=== PATIENT | male | born 1990 | race American Indian/Alaskan Native ===

== ENCOUNTER 2021-09-30 12:00 | Outpatient (REF) | payer OTHER, SELFPAY ==
[2021-09-30 14:06] LABS: Estimated Average Glucose 91 mg/dL; Hemoglobin A1c % 4.8 %
[2021-09-30 14:16] LABS: Alanine Aminotransferase 48 U/L (0-40); Albumin Level 4.7 g/dL (3.5-5.0); Alkaline Phosphatase 66 U/L (39-117); Anion Gap 12 (12-20); Aspartate Amino Transferase 26 U/L (5-37); Bilirubin Total 0.6 mg/dL (0.0-1.0); Blood Urea Nitrogen 12 mg/dL (9-16); Calcium 9.8 mg/dL (8.4-10.2); Carbon Dioxide 27 mmol/L (22-29); Chloride 107 mmol/L (96-108); Cholesterol 205 mg/dL; Estimated Glomerular Filt Rate > 60; Glucose Fasting 93 mg/dL (60-99); HDL Cholesterol 38 mg/dL; LDL Cholesterol Calculated 125 mg/dl; Potassium 3.7 mmol/L (3.3-5.1); Sodium 142 mmol/L (135-145); Total Protein 7.3 g/dL (6.5-8.0); Triglycerides 214 mg/dL
[2021-09-30 14:38] LABS: TSH reflex Free T4 1.45 uIU/mL (0.32-4.0)
== END 2021-09-30 12:01 | disposition home or self-care (01) ==
LOC: HO.10HDL 12:00
PROVIDERS: Visit Provider Physician Assistant
DX: Z13.29 Encounter for screening for other suspected endocrine disorder (principal); Z13.220 Encounter for screening for lipoid disorders
CPT/HCPCS: 36415; 80053; 80061; 83036; 84443

== ENCOUNTER 2022-04-04 10:08 | Outpatient (REF) | payer OTHER, SELFPAY ==
[2022-04-04 14:03] LABS: Hematocrit 44.5 % (42.0-52.0); Hemoglobin 14.8 g/dl (14.0-18.0); Mean Corpuscular HGB Conc 33.3 g/dl (31.0-36.0); Mean Corpuscular Hemoglobin 27.1 pg (27.0-33.0); Mean Corpuscular Volume 81.5 fL (80.0-98.0); Mean Platelet Volume 10.3 fL (9.4-12.4); Platelet Count 266 X10*3/uL (160-400); Red Blood Count 5.46 X10*6/uL (4.60-5.80); Red Cell Distribution Width 14.3 % (11.0-16.0); White Blood Count 8.9 X10*3/uL (4.8-10.8)
[2022-04-04 14:21] LABS: Alanine Aminotransferase 60 U/L (0-40); Albumin Level 4.6 g/dL (3.5-5.0); Alkaline Phosphatase 66 U/L (39-117); Anion Gap 14 (12-20); Aspartate Amino Transferase 28 U/L (5-37); Bilirubin Total 0.5 mg/dL (0.0-1.0); Blood Urea Nitrogen 10 mg/dL (9-16); Calcium 9.3 mg/dL (8.4-10.2); Carbon Dioxide 24 mmol/L (22-29); Chloride 108 mmol/L (96-108); Cholesterol 208 mg/dL; Estimated Glomerular Filt Rate > 60; Glucose Fasting 88 mg/dL (60-99); HDL Cholesterol 39 mg/dL; LDL Cholesterol Calculated 138 mg/dl; Potassium 3.8 mmol/L (3.3-5.1); Sodium 142 mmol/L (135-145); Total Protein 7.3 g/dL (6.5-8.0); Triglycerides 155 mg/dL
[2022-04-04 14:33] LABS: TSH reflex Free T4 1.12 uIU/mL (0.32-4.0)
== END 2022-04-04 10:09 | disposition home or self-care (01) ==
LOC: HO.10HDL 10:08
PROVIDERS: Visit Provider Physician Assistant
DX: I10 Essential (primary) hypertension (principal)
CPT/HCPCS: 36415; 80053; 80061; 84443; 85027

== ENCOUNTER 2023-07-04 11:09 | Outpatient (AMB) | payer OTHER, SELFPAY ==
--- NOTE | 2023-07-04 11:11 | A.OFFPC_ITS ---
Vital Signs 07/04/23 11:17 Height 5 ft 7 in Weight 237 lb BMI 37.1 BP 150/90 H Blood Pressure Location Lt brachial Position Sitting Respiration 17 Pulse 58 Pulse Source Pulse Oximeter Pulse Oximetry (%) 98 Oxygen Delivery Method Room Air Intake Visit Reasons: Follow up hypertension Intake Note: Patient is here to follow up on HTN and not one medications. Wiper Blender Required: No Accompanied by: Self / Same As Patient Allergies No Known Allergies [No Known Allergies*] Allergy (Verified 07/04/23 11:23) Medication List - Last Reconciled 07/04/23 by Willard Lester PA-C blood pressure test kit-large To take blood pressure once a day Tobacco use date assessed: 07/04/23 Dental Screening Dental Screen Date: 07/04/23 Did you have a dental visit in the last 12 months?: No Did you have a dental problem in the last 6 months where you did not have access to dental care?: No Was dental information given to patient?: Patient declined HPI Follow up hypertension HPI Details Patient is a 32 year male here today for a follow-up visit. ? Patient has past medical history significant obesity, elevated blood pressure readings, nonalcoholic fatty liver disease. HTN: Noted elevated blood pressure today in office.? He was to start hydrochlorothiazide at last visit though reports it was too expensive for him at his pharmacy. He will I to switch pharmacy for better cost on his blood pressure medication. He has not been monitoring his blood pressure at home.? He otherwise denies any chest discomfort, headaches, vision issues or palpitations. .. Obesity:. Will understands his BMI is over 30 will work on being more physically active and adapting to better eating habits to reduce his weight. .. Borderline high cholesterol: Most recent labs showing borderline high total cholesterol. He has been working on lifestyle modifications on reducing high cholesterol foods in his diet. [facility] Medical History Fatty liver disease, nonalcoholic Surgical History No pertinent past surgical history Family History Father Diabetes Mother No problems noted. Social History Housing: Apartment Housing Other:: living with parents Alcohol intake: former Patient Tobacco Use Status: Never used Tobacco e-Cigarette/Vaping Use: Never Used service: No Current occupational status: disabled Cognitive needs: No Hearing needs: No Vision needs: Yes Questionnaire PHQ-9 Over the last 2 weeks, how often have you been bothered by any of the following problems? 1. Little interest or pleasure in doing things: not at all 2. Feeling down, depressed, or hopeless: not at all 3. Trouble falling or staying asleep, or sleeping too much: not at all 4. Feeling tired or having little energy: not at all 5. Poor appetite or overeating: not at all 6. Feeling bad about yourself - or that you are a failure or have let yourself or your family down: not at all 7. Trouble concentrating on things, such as reading the newspaper or watching television: not at all 8. Moving or speaking so slowly that other people could have noticed. Or the opposite - being so fidgety or restless that you have been moving around a lot more than usual: not at all 9. Thoughts that you would be better off or of hurting yourself in some way: not at all Total score: 0 Depression Screening Interpretation: Negative 70823 - PHQ-9 Billing: Yes Source: Developed by Drs. Remy Headley, Livier Medina, Vance Garcia and colleagues, with an educational pedro pablo from [employer]. Thrive Questionnaire Date Thrive assessed: 07/04/23 I am a: Patient What is your living situation today?: I have a steady place to live (Pt live with parents) Within the past 12 months, did the food you bought not last and you didn't have the money to get more?: Never true Within the past 12 months, did you worry whether your food would run out before you got money to buy more?: Never true Do you have trouble paying for medicines?: Yes Do you have trouble getting transportation to medical appointments?: No Do you have trouble paying your heating and electricity bill?: No Do you have trouble taking care of your child, family member or friend?: No Do you have trouble with day-to-day activities such as bathing, preparing meals, shopping, managing finances, etc.?: No Are you currently unemployed and looking for a job?: No Are you interested in more education?: No Please select the resources that you would like help with: None Currently or been in a relationship where the following occur: no concerns reported AUDIT C Alcohol Use Questionnaire (AUDIT-C) 1. How often do you have a drink containing alcohol?: Never 3. How often do you have six or more drinks on one occasion?: Never Total Score: 0 GINI-7 AMB Questionnaire GINI-7 Date GINI - 7 assessed: 07/04/23 Feeling nervous, anxious, or on edge: 0 = Not at all Not being able to stop or control worryin = Not at all Worrying too much about different things: 0 = Not at all Trouble relaxin = Not at all Being so restless that it is hard to sit still: 0 = Not at all Becoming easily annoyed or irritable: 0 = Not at all Feeling afraid as if something awful might happen: 0 = Not at all Total GINI-7 score (0-4 normal; 5-9 mild; 10-14 moderate; 15-21 severe): 0 Source: Developed by Drs. Remy Headley, Livier Medina, Vance Garcia and colleagues, with an educational pedro pablo from [employer]. GINI-7 Assessment Billing GINI-7 Assessment Tool: GINI-7 Assessment 33206 Review of Systems Const Denies headache(s) Eyes Denies loss of vision ENT Denies vertigo, Denies dizziness, Denies headache(s) and Denies sore throat Card Denies chest pain, Denies leg edema and Denies lightheadedness Resp Denies cough, Denies hemoptysis and Denies wheezing GI Denies abdominal pain, Denies melena, Denies constipation, Denies diarrhea and Denies vomiting Denies dysuria, Denies urinary frequency and Denies urinary urgency Musc Denies arthralgias, Denies joint swelling, Denies numbness and Denies tingling Neuro Denies Abnormal speech present, Denies behavioral changes, Denies vertigo, Denies dizziness, Denies headache(s), Denies loss of vision, Denies memory loss, Denies numbness and Denies tingling Psych Denies anxiety, Denies behavioral changes, Denies depression, Denies memory loss and Denies panic attacks Glen/Lymph Denies easy bleeding and Denies easy bruising Aller/Immun Denies wheezing Physical exam (Primary Care) Vital Signs: Last Vital Signs Pulse 58 07/04/23 11:17 Resp 17 07/04/23 11:17 BP 150/90 H 07/04/23 11:17 Pulse Ox 98 07/04/23 11:17 Oxygen Delivery Method Room Air 07/04/23 11:17 BMI result Body Mass Index 37.1 BMI Assessment/Plan discussion: High Tobacco/Smoking Status: Tobacco use Status Tobacco use date assessed 07/04/23 07/04/23 11:19 Patient Tobacco Use Status Never used Tobacco 07/04/23 11:13 e-Cigarette/Vaping Use Never Used 07/04/23 11:19 PHQ-9: PHQ-9 Score PHQ-9: Total score 0 07/04/23 11:22 Depression Screening Interpretation: Negative Thrive Assessment: Date of Thrive Assessment Date Thrive assessed 07/04/23 07/04/23 11:21 Currently or been in a relationship where the following occur: no concerns reported Const Other: OBESE General: healthy appearing, no acute distress, alert and awake Nutritional Appearance: well nourished Orientation/consciousness: oriented to person, oriented to place and oriented to time HENMT Ears: TM's normal bilaterally General nose exam: Normal nasal mucous membranes and turbinates present Eyes Conjunctivae: conjunctivae normal Sclerae: sclerae normal Pupils: Equal, round and reactive pupils present Neck Neck: Yes no lymphadenopathy and Yes no JVD Thyroid: Thyroid normal Carotids: no bruits Resp Effort & Inspection: normal respiratory effort and not tachypneic Auscultation: no crackles, no rales, no rhonchi and no wheezes Cardio Rate: regular rate Rhythm: regular rhythm Heart sounds: no murmurs and normal S1 and S2 GI Palpation (GI): Soft to palpation, nontender, no hepatomegaly and no splenomegaly Auscultation: normal bowel sounds Skin General skin exam: no rashes or lesions noted and dry skin Neuro General: oriented to person, oriented to place and oriented to time Cranial nerves: Yes Equal, round and reactive pupils present Speech: No Abnormal speech present Gait exam (Neuro): Normal gait present Motor exam (neuro): no tremor noted Extrem Right upper extremity: full ROM Left upper extremity: full ROM Right lower extremity: full ROM; no edema Left lower extremity: full ROM; no edema Psych Mental Status: mental status grossly normal Speech and movement: Normal speech and movement present Affect: normal affect Attitude: cooperative Thought process: Normal thought process present Assessment and Plan Assessment & Plan (1) HTN (hypertension): Code(s): I10 - Essential (primary) hypertension Qualifiers: Hypertension type: primary hypertension Qualified Code(s): I10 - Essential (primary) hypertension Plan: Patient's blood pressure remains elevated today in office. Now willing to start low-dose hydrochlorothiazide a daily basis advised to monitor blood pressure at home. Also advised on low-sodium diet and patient agrees and understands and will do so. Goal blood pressure to be below 140/90 (2) Obese: Code(s): E66.9 - Obesity, unspecified Qualifiers: Obesity type: due to excess calories Obesity classification: adult c lass 2 (BMI 35 - 39.9) Serious obesity comorbidity presence: without serious comorbidity Body mass index: BMI 37.0-37.9 Qualified Code(s): E66.09 - Other obesity due to excess calories; Z68.37 - Body mass index [BMI] 37.0-37.9, adult Plan: Patient does understand his BMI is over 30 will work on being more physically active and adapting to better eating habits to reduce his weight (3) Borderline high cholesterol: Code(s): E78.9 - Disorder of lipoprotein metabolism, unspecified Plan: Patient's most recent fasting lipid panel showing borderline high total cholesterol. He will work on lifestyle modifications to reduce his high cholesterol foods. Goal LDL to be below 160 Medications: New hydrochlorothiazide 12.5 mg PO DAILY 90 days 90 tabs 1RF I10 - Essential (primary) hypertension Refilled blood pressure test kit-large To take blood pressure once a day 1 ea 0RF I10 - Essential (primary) hypertension Coding Level of Care Code Est Pt Level 4 (52545) Diagnoses Primary hypertension I10 Hypertension type: primary hypertension Class 2 obesity due to excess calories without serious comorbidity with body mass index (BMI) of 37.0 to 37.9 in adult E66.09; Z68.37 Obesity type: due to excess calories Obesity classification: adult class 2 (BMI 35 - 39.9) Serious obesity comorbidity presence: without serious comorbidity Body mass index: BMI 37.0-37.9 Borderline high cholesterol E78.9 Additional Codes GINI-7 Assessment Billing - GINI-7 Assessment Tool: GINI-7 Assessment [id number] ([id number])
[2023-07-04 11:17] VITALS: BP 150/90; PULSE 58; RESP 17; O2SAT 98; BMI 37.1
== END 2023-07-04 11:32 | disposition home or self-care (01) ==
PROVIDERS: PCP Physician Assistant; Visit Provider Physician Assistant
DX: I10 Essential (primary) hypertension (principal); E66.09 Other obesity due to excess calories; Z68.37 Body mass index [BMI] 37.0-37.9, adult; E78.9 Disorder of lipoprotein metabolism, unspecified
CPT/HCPCS: 99214

== ENCOUNTER 2023-07-04 11:38 | Outpatient (REF) | payer OTHER, SELFPAY ==
[2023-07-04 13:45] LABS: Hemoglobin 14.9 g/dl (14.0-18.0); Mean Corpuscular HGB Conc 33.1 g/dl (31.0-36.0); Mean Corpuscular Hemoglobin 27.1 pg (27.0-33.0); Mean Corpuscular Volume 81.8 fL (80.0-98.0); Mean Platelet Volume 10.5 fL (9.4-12.4); Platelet Count 259 X10*3/uL (160-400); Red Cell Distribution Width 14.1 % (11.0-16.0)
[2023-07-04 14:39] LABS: Alanine Aminotransferase 29 U/L (0-40); Albumin Level 4.5 g/dL (3.5-5.0); Alkaline Phosphatase 66 U/L (39-117); Anion Gap 11 (12-20); Aspartate Amino Transferase 21 U/L (5-37); Bilirubin Total 0.6 mg/dL (0.0-1.0); Blood Urea Nitrogen 9 mg/dL (9-16); Calcium 9.8 mg/dL (8.4-10.2); Carbon Dioxide 27 mmol/L (22-29); Chloride 109 mmol/L (96-108); Cholesterol 202 mg/dL (<200); Estimated Glomerular Filt Rate > 60; Glucose Fasting 102 mg/dL (60-99); HDL Cholesterol 43 mg/dL (>40); LDL Cholesterol Calculated 127 mg/dL (<100); Potassium 3.5 mmol/L (3.3-5.1); Sodium 143 mmol/L (135-145); Total Protein 7.3 g/dL (6.5-8.0); Triglycerides 162 mg/dL (<150)
[2023-07-04 14:47] LABS: TSH reflex Free T4 1.29 uIU/mL (0.32-4.0)
== END 2023-07-04 11:39 | disposition home or self-care (01) ==
LOC: HO.10HDL 11:38
PROVIDERS: Visit Provider Physician Assistant
DX: I10 Essential (primary) hypertension (principal)
CPT/HCPCS: 36415; 80053; 80061; 84443; 85027

== ENCOUNTER 2024-06-22 11:12 | Inpatient (IN) | payer MEDICAID, SELFPAY ==
[2024-06-22] VITALS (11 sets, daily range): BP systolic 122–178; BP diastolic 71–109; PULSE 55–103; RESP 14–21; TEMP 36.6–39.5; O2SAT 95–99; BMI 37.4
--- NOTE | ~2024-06-22 | CT_ITS ---
EXAMINATION: CT ABDOMEN AND PELVIS WITH CONTRAST CLINICAL INFORMATION: Follow up diverticulitis. Increased abdominal pain. COMPARISON: June 22, 2024 TECHNIQUE: Multidetector volumetric images were obtained from the superior aspect of the liver through the pubic symphysis following administration 100 mL of Omnipaque 350 intravenous contrast. Sagittal and coronal reformatted images were obtained on the technologist's workstation. Oral contrast: No This CT examination was performed using dose optimization techniques as appropriate, variously including the following: *Automated exposure control *Adjustment of mA and/or kV according to patient size (this includes techniques or standardized protocols for targeted exams where dose is matched to indication/reason for exam; i.e. extremities or head) *Use of iterative reconstruction technique DLP: 1090 mGy-cm FINDINGS: LUNG BASES: The visualized lung bases are unremarkable. LIVER, GALLBLADDER, AND BILIARY TREE: The liver is normal in size, shape, and attenuation. No focal hepatic lesion or biliary ductal dilatation is present. The gallbladder is unremarkable with no evidence of radiopaque gallstones, gallbladder wall thickening, or obvious pericholecystic inflammatory changes. PANCREAS: Unremarkable. SPLEEN: Unremarkable. ADRENAL GLANDS: Unremarkable. KIDNEYS AND URETERS: Unremarkable. BLADDER: Under distended. GASTROINTESTINAL TRACT: There is worsening free intraperitoneal air dissecting into the retroperitoneum and retrocrural space. There is worsening presacral stranding and edema. There is wall thickening of the rectosigmoid colon. Findings most likely representing localized perforation. There are phlegmonous changes in the low pelvis without a discrete drainable fluid collection. There is apparent wall thickening of the transverse colon with prominence of the vasa recta. Appendix is within normal limits. No small bowel obstruction. ABDOMINAL WALL: No significant hernia is appreciated. LYMPH NODES: Few subcentimeter retroperitoneal lymph nodes. VASCULAR: Normal caliber abdominal aorta. PELVIC VISCERA: Unremarkable. OSSEOUS STRUCTURES: No destructive bone lesions. CT/CT abdomen pelvis w IV con IMPRESSION: Interval progression of perforated diverticulitis. Wall thickening of the rectosigmoid colon with free intraperitoneal air dissecting into the retroperitoneum and retrocrural space. The degree of free air and phlegmonous change have significantly increased. No drainable fluid collection. Surgical consultation should be considered. Electronically signed by: Virgilio Grnaados MD 06/26/2024 12:42 PM EDT
--- NOTE | ~2024-06-22 | CT_ITS ---
EXAMINATION: CT ABDOMEN AND PELVIS WITH CONTRAST CLINICAL INFORMATION: Abdominal pain. COMPARISON: Abdominal ultrasound dated 09/09/2015. TECHNIQUE: Multidetector CT volumetric acquisition of the abdomen and pelvis was performed after the administration of 85 mL of intravenous Omnipaque 350. The data set was reformatted in the sagittal and coronal planes and reviewed on an independent workstation. This CT examination was performed using dose optimization techniques as appropriate, variously including the following: *Automated exposure control *Adjustment of mA and/or kV according to patient size (this includes techniques or standardized protocols for targeted exams where dose is matched to indication/reason for exam; i.e. extremities or head) *Use of iterative reconstruction technique DLP: 769.12 mGy-cm. FINDINGS: LOWER CHEST: Included lung bases unremarkable. LIVER, GALLBLADDER, BILIARY TREE: Liver normal size and attenuation. No focal cystic or solid mass or intra-or extrahepatic ductal dilatation. Hepatic and portal veins patent. Gallbladder partially distended and within normal limits. PANCREAS: Normal. No ductal dilatation, mass, or surrounding stranding. SPLEEN: Normal size and appearance. Splenic vein patent. ADRENAL GLANDS AND KIDNEYS: Adrenal glands normal. Kidneys bilaterally symmetric in size and function. No focal mass, hydronephrosis, nephrolithiasis or perinephric stranding. URETERS AND BLADDER: Ureters decompressed and within normal limits. Bladder partially distended and within normal limits. PELVIC ORGANS: Unremarkable. GASTROINTESTINAL TRACT: There is abnormal circumferential bowel wall thickening, edema and enhancement of the distal sigmoid colon with prominent surrounding fat stranding and edema. There is a small focus of extraluminal air seen along the left lateral margin of this involved segment of colon, suspicious for a contained microperforation. There are a few scattered sigmoid diverticula seen and findings are suspicious for acute diverticulitis with contained microperforation. Additional elongated collection of free air is seen tracking into the retroperitoneum in the presacral space with prominent surrounding fat stranding and edema. The fat stranding and edema extends in the anterior periaortic space superiorly to the upper pelvic level. There are a few loops of ileum, including the terminal ileum adjacent to this inflammatory process in the lower abdomen, which are mildly distended and fluid-filled, possibly related to a localized reactive ileus. The cecum is abnormal mesentery and is seen in the right mid flank and is unremarkable. Appendix is normal. LYMPHOVASCULAR STRUCTURES: Abdominal aorta normal in caliber. No periaortic collections. No abdominal or pelvic adenopathy or free fluid collection. BONES: There is a prominent posterior disc osteophyte complex seen indenting the thecal sac and causing moderate spinal stenosis at the L4-5 level and a smaller posterior disc osteophyte complexes seen at the L5-S1 level, without significant spinal stenosis. Moderate vertebral spondylosis and lower thoracic spine is seen. Mild degenerative changes in the hip joints are noted.. CT/CT abdomen pelvis w IV con IMPRESSION: * Abnormal circumferential bowel wall thickening and enhancement of the distal sigmoid colon with prominent surrounding fat stranding and edema. Findings are suspicious for acute diverticulitis with contained microperforation. There is extension of the inflammatory process into the presacral space with small volume retroperitoneal free air also noted. No discrete drainable abscess collection is seen. * Prominent posterior disc osteophyte complex at the L4-5 level causes moderate spinal stenosis. Smaller posterior disc osteophyte complex is seen at the L5-S1 level without significant spinal stenosis. This critical result was discussed with Dr. Lopez 06/22/2024, 4:51 PM and it was ascertained that the content and urgency of this report was understood at the time of direct communication. Electronically signed by: Deya Colon MD 06/22/2024 04:54 PM EDT
--- NOTE | 2024-06-22 11:26 | ED_ITS ---
HPI - General Adult General Chief complaint: Abdominal Pain Stated complaint: LOW ABD PAIN PER EMS Time Seen by Provider: 06/22/24 11:26 Source: patient and EMS Mode of arrival: EMS Limitations: no limitations History of Present Illness ED Provider: Jacqui Lopez PA-C HPI narrative: Patient is a 33 year old assigned male at with a history of HTN presenting to the emergency department today with abdominal pain. Patient states that the pain started yesterday after having a bowel movement and then today, it got significantly worse. Patient denies any dizziness, lightheadedness, nausea, vomiting, fever, chills, blurry vision, double vision, loss of vision, chest pain, difficulty breathing, shortness of breath, back pain, night sweats, pain with urination, increased urinary frequency, increased urinary urgency, blood in [his/her/their] urine or stool, syncope or a near syncopal episode, recent trauma or falls, bowel incontinence, bladder incontinence, or any other complaints at this time. Onset (ago): day(s) (1) Location: abdomen Severity: moderate Severity scale (1-10): 6 Quality: aching Pain Consistency: constant Relieving factors: none Exacerbating factors: none Associated symptoms: denies other symptoms Treatments prior to arrival: none Related Data Home Medications ?Medication ?Instructions ?Recorded ?Confirmed acetaminophen 325 mg tablet 650 mg PO Q6H PRN Pain 06/22/24 06/22/24 (Tylenol) Previous Rx's ?Medication ?Instructions ?Recorded blood pressure test kit-large #1 ea 07/04/23 Allergies Allergy/AdvReac Type Severity Reaction Status Date / Time No Known Allergies Allergy Verified 06/22/24 11:29 [No Known Allergies*] Review of Systems 2 Constitutional: Constitutional: Reports no additional constitutional complaints, Denies chills, Denies fever(s) and Denies night sweats Eyes: Eyes: Reports no additional eye complaints, Denies blurry vision, Denies change in vision, Denies diplopia, Denies eye discharge, Denies loss of vision and Denies eye pain ENT: Denies dizziness Cardiovascular: Cardiovascular: Reports no additional cardiovascular complaints, Denies chest pain, Denies lightheadedness, Denies Loss of Consciousness and Denies dyspnea Respiratory: Respiratory: Reports no additional respiratory complaints and Denies dyspnea Gastrointestinal: Gastrointestinal: Reports no additional gastrointestinal complaints, Reports abdominal pain, Denies melena, Denies hematochezia, Denies change in bowel habits and Denies change in stool character Genitourinary: Genitourinary: Reports no additional male genitourinary complaints, Denies hematuria, Denies oliguria, Denies difficulty urinating, Denies dysuria, Denies urinary frequency, Denies urinary hesitancy, Denies urinary incontinence and Denies urinary urgency Musculoskeletal: Musculoskeletal: Reports no additional musculoskeletal complaints, Denies numbness and Denies tingling Neurologic: Denies dizziness, Denies loss of vision, Denies numbness and Denies tingling Psychiatric: Psychiatric: Reports no additional psychiatric complaints Endocrine: Endocrine: Reports no additional endocrine complaints Hematologic/Lymphatic: Hematologic/Lymphatic: Reports no additional hematologic/lymphatic complaints Allergic/Immunologic: Allergic/Immunologic: Reports no additional allergic/immunologic complaints [facility] Past Medical History Attestation statement: The following information was validated with the patient. Source: old records reviewed and nursing notes reviewed Medical History Fatty liver disease, nonalcoholic Surgical History No pertinent past surgical history Family History Family History Father Diabetes Mother No problems noted. Social History Social History Housing: Apartment Housing Other:: living with parents Alcohol intake: former Patient Tobacco Use Status: Never used Tobacco e-Cigarette/Vaping Use: Never Used Advance Directives: No service: No Current occupational status: disabled Cognitive needs: No Hearing needs: No Vision needs: Yes Physical Exam ED Vital Signs: Vital Signs - 24 hr 06/22/24 11:23 06/22/24 12:04 06/22/24 13:51 Temperature 98 F Pulse Rate 55 Respiratory Rate 18 20 20 Blood Pressure 178/109 H Pulse Oximetry 98 Oxygen Delivery Method Room Air 06/22/24 15:16 06/22/24 16:20 06/22/24 17:01 Temperature 98.0 F 98.9 F Pulse Rate 77 74 Respiratory Rate 18 16 21 H Blood Pressure 153/84 H 151/79 H Pulse Oximetry 98 97 Oxygen Delivery Method Room Air Room Air 06/22/24 17:32 Temperature 98.9 F Pulse Rate 85 Respiratory Rate 16 Blood Pressure 141/76 H Pulse Oximetry 99 Oxygen Delivery Method Room Air BMI result Body Mass Index 37.4 Const General: cooperative, no acute distress, alert and awake Nutritional Appearance: well nourished Orientation/consciousness: patient oriented x3 Limitations: no limitations HENMT Head: Yes normal to inspection and Yes atraumatic Ears: hearing grossly normal bilaterally and external ears normal General nose exam: Normal external nose present, no nasal discharge noted and no epistaxis Face and sinus: Yes normal facial exam, No abrasion and No laceration Mouth: Normal oral and palatal mucosa present, no drooling and no muffled voice Eyes General: appearance normal, both eyes and all related structures Periorbital: periorbital findings normal Eyelids: Yes eyelids normal Conjunctivae: conjunctivae normal Pupils: Equal, round and reactive pupils present EOM: EOMs intact bilaterally Neck Neck: Yes normal visual inspection, Yes full ROM and Yes no lymphadenopathy Chest Chest palpation & inspection: normal inspection of the chest Resp Effort & Inspection: normal respiratory effort and able to speak in complete sentences GI Inspection: Yes normal to inspection Palpation (GI): Soft to palpation, not firm, Tenderness to palpation present (GI), no guarding and not rigid Neuro General: patient oriented x3 and moves all extremities Cranial nerves: Yes Equal, round and reactive pupils present Cognition (Neuro): normal cognition Extrem General: Yes normal to inspection, Yes full ROM and Yes capillary refill normal Psych Appearance: grossly normal Mental Status: mental status grossly normal Affect: normal affect Attitude: cooperative Thought process: Normal thought process present Thought content: Normal thought content present Insight: Good insight present (Psych) Medications Administered Discontinued Medications Generic Name Dose Route Start Last Admin Trade Name Freq PRN Reason Stop Dose Admin Hydromorphone HCl 1 mg 06/22/24 13:39 06/22/24 13:51 Hydromorphone Hcl 1 Mg/Ml Syringe IVPUSH 06/22/24 13:40 1 mg ONCE ONE Administration Protocol Hydromorphone HCl 1 mg 06/22/24 16:54 06/22/24 17:01 Hydromorphone Hcl 1 Mg/Ml Syringe IVPUSH 06/22/24 16:55 1 mg ONCE ONE Administration Protocol Sodium Chloride 1,000 mls @ 999 mls/hr 06/22/24 11:30 06/22/24 15:12 Ns IV 06/22/24 12:30 Infused .Q1H1M CHELITA Infusion Piperacillin Sod/Tazobactam 50 mls @ 100 mls/hr 06/22/24 14:25 06/22/24 16:42 Sod 3.375 gm/ Sodium Chloride IV 06/22/24 14:54 Infused ONCE ONE Infusion Iohexol 100 ml 06/22/24 12:55 06/22/24 12:55 Iohexol 350 Mg/Ml 100 Ml Infus..Btl IV 06/22/24 12:56 85 ml ONCE ONE Administration Ketorolac Tromethamine 15 mg 06/22/24 13:39 06/22/24 13:51 Ketorolac Tromethamine 15 Mg/Ml Vial IVPUSH 06/22/24 13:40 15 mg ONCE ONE Administration Morphine Sulfate 4 mg 06/22/24 11:27 06/22/24 12:04 Morphine Sulfate 4 Mg/Ml Cartridge IVPUSH 06/22/24 11:28 4 mg ONCE ONE Administration Protocol Ondansetron HCl 4 mg 06/22/24 11:27 06/22/24 12:05 Ondansetron Hcl 4 Mg/2 Ml Vial IVPUSH 06/22/24 11:28 4 mg ONCE ONE Administration Pantoprazole Sodium 40 mg 06/22/24 12:24 06/22/24 12:49 Pantoprazole Sodium 40 Mg/10 Ml Vial IVPUSH 06/22/24 12:25 40 mg ONCE ONE Administration Medical Decision Making Medical Decision Making MDM Narrative: Patient is a 33 year old assigned male at with a history of HTN presenting to the emergency department today with abdominal pain. Patient's physical exam was as noted in the physical exam portion of this note. Patient's blood work was unremarkable. Patient's urine showed no acute process. Patient's CT abdomen/pelvis showed complicated diverticulitis with a microperforation. I spoke to Dr. Slade who recommended medical admission with IV Zosyn and keeping the patient NPO. I spoke to the hospitalist team who agreed to admission. I explained my physical exam findings as well as all test results to the patient. I answered all questions asked by the patient. Patient verbalized agreement and understanding with this treatment plan and admission. Differential Diagnosis Differential Diagnoses: The differential diagnosis associated with the presentation includes Acute abdomen Intestinal perforation Complicated diverticulitis Appendicitis Admission/Observation Consideration of admission/observation: Escalation of care including admission/observation considered Patient admitted. Consult Healthcare Provider Management of the patient was discussed with: Hospitalist (agreed to admission as noted in the MDM Rationale portion of this note.) and Plant Supervisor (spoke to the general surgeon as noted in the MDM Rationale portion of this note.) Lab Data [facility] Lab Attestation statement: I reviewed the patient's lab results. My interpretation of these results are in the MDM Rationale portion of this note. 06/22/24 12:19 06/22/24 12:19 Labs: Lab Results 06/22/24 06/22/24 06/22/24 Range/Units 11:55 12:19 13:16 WBC 9.1 (4.8-10.8) X10*3/uL RBC 5.37 (4.60-5.80) X10*6/uL Hgb 14.6 (14.0-18.0) g/dl Hct 43.1 (42.0-52.0) % MCV 80.3 (80.0-98.0) fL MCH 27.2 (27.0-33.0) pg MCHC 33.9 (31.0-36.0) g/dl RDW 13.9 (11.0-16.0) % Plt Count 240 (160-400) X10*3/uL MPV 10.0 (9.4-12.4) fL Immature Gran % (Auto) 0.3 (0.0-0.4) % Neut % (Auto) 74.9 H (45-73) % Lymph % (Auto) 16.4 L (20-40) % [place] % (Auto) 5.0 (2-11) % Eos % (Auto) 2.8 (0-4) % Baso % (Auto) 0.6 (0-2) % Lymph # (Auto) 1.5 (1.2-4.9) X10*3/uL [place] # (Auto) 0.5 (0.1-1.2) X10*3/uL Eos # (Auto) 0.3 (0.0-0.4) X10*3/uL Baso # (Auto) 0.1 (0.0-0.2) X10*3/uL Abs Immat Gran (auto) 0.03 (0.00-0.03) X10*3/uL Absolute Neuts (auto) 6.8 (2.0-8.3) x10*3/uL Absolute Nucleated RBC 0.000 (0.0-0.012) X10*3/uL Nucleated RBC % (auto) 0.0 (0.0-0.2) /100WBC Sodium 140 (135-145) mmol/L Potassium 3.1 L (3.3-5.1) mmol/L Chloride 107 (96-108) mmol/L Carbon Dioxide 21 L (22-29) mmol/L Anion Gap 15 (12-20) BUN 12 (9-16) mg/dL Creatinine 1.03 (0.5-1.4) mg/dL Estim Creat Clear Calc 117.4 Estimated GFR > 60 Random Glucose 160 H (60-115) mg/dL Calcium 9.4 (8.4-10.2) mg/dL Magnesium 2.0 (1.6-2.6) mg/dL Total Bilirubin 0.5 (0.0-1.0) mg/dL AST 11 (5-37) U/L ALT 13 (0-40) U/L Alkaline Phosphatase 62 (39-117) U/L Total Protein 7.2 (6.5-8.0) g/dL Albumin 4.1 (3.5-5.0) g/dL Urine Color Yellow Urine Appearance Clear Urine pH 5.5 (5.0-9.0) Ur Specific [place] >= 1.030 H (1.005-1.025) Urine Protein Trace (Neg-Trace) mg/dL Urine Glucose (UA) Negative (Negative) mg/dL Urine Ketones 15 (Negative) mg/dL Urine Blood Negative (Negative) Urine Nitrite Negative (Negative) Ur Leukocyte Esterase Negative (Negative) Influenza Type A (PCR) NEGATIVE (Negative) Influenza Type B (PCR) NEGATIVE (Negative) RSV RNA Qual (PCR) NEGATIVE (Negative) SARS-CoV-2 RNA (RT-PCR) NEGATIVE (Negative) Independent Interpretation I performed an independent interpretation of an: CT Scan Interpretation: My interpretation is in agreement with the radiologist's impression of this imaging study. - EXAMINATION: CT ABDOMEN AND PELVIS WITH CONTRAST CLINICAL INFORMATION: Abdominal pain. COMPARISON: Abdominal ultrasound dated 09/09/2015. TECHNIQUE: Multidetector CT volumetric acquisition of the abdomen and pelvis was performed after the administration of 85 mL of intravenous Omnipaque 350. The data set was reformatted in the sagittal and coronal planes and reviewed on an independent workstation. This CT examination was performed using dose optimization techniques as appropriate, variously including the following: *Automated exposure control *Adjustment of mA and/or kV according to patient size (this includes techniques or standardized protocols for targeted exams where dose is matched to indication/reason for exam; i.e. extremities or head) *Use of iterative reconstruction technique DLP: 769.12 mGy-cm. FINDINGS: LOWER CHEST: Included lung bases unremarkable. LIVER, GALLBLADDER, BILIARY TREE: Liver normal size and attenuation. No focal cystic or solid mass or intra-or extrahepatic ductal dilatation. Hepatic and portal veins patent. Gallbladder partially distended and within normal limits. PANCREAS: Normal. No ductal dilatation, mass, or surrounding stranding. SPLEEN: Normal size and appearance. Splenic vein patent. ADRENAL GLANDS AND KIDNEYS: Adrenal glands normal. Kidneys bilaterally symmetric in size and function. No focal mass, hydronephrosis, nephrolithiasis or perinephric stranding. URETERS AND BLADDER: Ureters decompressed and within normal limits. Bladder partially distended and within normal limits. PELVIC ORGANS: Unremarkable. GASTROINTESTINAL TRACT: There is abnormal circumferential bowel wall thickening, edema and enhancement of the distal sigmoid colon with prominent surrounding fat stranding and edema. There is a small focus of extraluminal air seen along the left lateral margin of this involved segment of colon, suspicious for a contained microperforation. There are a few scattered sigmoid diverticula seen and findings are suspicious for acute diverticulitis with contained microperforation. Additional elongated collection of free air is seen tracking into the retroperitoneum in the presacral space with prominent surrounding fat stranding and edema. The fat stranding and edema extends in the anterior periaortic space superiorly to the upper pelvic level. There are a few loops of ileum, including the terminal ileum adjacent to this inflammatory process in the lower abdomen, which are mildly distended and fluid- filled, possibly related to a localized reactive ileus. The cecum is abnormal mesentery and is seen in the right mid flank and is unremarkable. Appendix is normal. LYMPHOVASCULAR STRUCTURES: Abdominal aorta normal in caliber. No periaortic collections. No abdominal or pelvic adenopathy or free fluid collection. BONES: There is a prominent posterior disc osteophyte complex seen indenting the thecal sac and causing moderate spinal stenosis at the L4-5 level and a smaller posterior disc osteophyte complexes seen at the L5-S1 level, without significant spinal stenosis. Moderate vertebral spondylosis and lower thoracic spine is seen. Mild degenerative changes in the hip joints are noted.. CT/CT abdomen pelvis w IV con IMPRESSION: * Abnormal circumferential bowel wall thickening and enhancement of the distal sigmoid colon with prominent surrounding fat stranding and edema. Findings are suspicious for acute diverticulitis with contained microperforation. There is extension of the inflammatory process into the presacral space with small volume retroperitoneal free air also noted. No discrete drainable abscess collection is seen. * Prominent posterior disc osteophyte complex at the L4-5 level causes moderate spinal stenosis. Smaller posterior disc osteophyte complex is seen at the L5-S1 level without significant spinal stenosis. This critical result was discussed with ARAVIND Lopez 06/22/2024, 4:51 PM and it was ascertained that the content and urgency of this report was understood at the time of direct communication. Electronically signed by: Deya Colon MD 06/22/2024 04:54 PM EDT Dictated By: Deya Colon MD Signed By: Electronically signed by Deya Colon MD 06/22/24 1654 Radiology Impression Discussion of test interpretation with radiology: I have reviewed the radiologist's reading. Independent Historian Clinical information obtained from an independent historian. History obtained from or confirmed by: EMS (EMS provided additional history and confirmed the history provided by the patient.) Critical Care Time Critical Care Time Critical Care Time: Yes Total Critical Care Time: 57 Attestation: I spent 57 minutes of Critical Care Time with this patient. This does not include time spent on separately reported billable procedures. Discharge Plan Discharge Clinical Impression: Perforation bowel, Diverticulitis Patient Disposition: Admitted As Inpatient Prescriptions: No Action acetaminophen [Tylenol] 325 mg Tablet 650 mg PO Q6H PRN (Reason: Pain) (DME) blood pressure test kit-large Kit See Rx Instructions .Route Qty: 1 0RF Rx Instructions: To take blood pressure once a day Print Language: Moz[place]ican
[2024-06-22] MEDS: 0.9 % Sodium Chloride 1,000 ML 999 ML IV (12:04)
[2024-06-22] MEDS: Morphine Sulfate 4 MG/ML CARTRIDGE IVPUSH (12:04)
[2024-06-22] MEDS: ondansetron HCL 4 MG/2 ML VIAL IVPUSH (12:05)
[2024-06-22 12:23] LABS: MANUAL DIFF FLAG NO
[2024-06-22 12:26] LABS: Basophils Absolute Auto 0.1 X10*3/uL (0.0-0.2); Basophils Percent Auto 0.6 % (0-2); Eosinophils Absolute Auto 0.3 X10*3/uL (0.0-0.4); Eosinophils Percent Auto 2.8 % (0-4); Hematocrit 43.1 % (42.0-52.0); Hemoglobin 14.6 g/dl (14.0-18.0); Imm Gran Abs Auto 0.03 X10*3/uL (0.00-0.03); Imm Gran Pct Auto 0.3 % (0.0-0.4); Lymphocytes Absolute Auto 1.5 X10*3/uL (1.2-4.9); Lymphocytes Percent Auto 16.4 % (20-40); Mean Corpuscular HGB Conc 33.9 g/dl (31.0-36.0); Mean Corpuscular Hemoglobin 27.2 pg (27.0-33.0); Mean Corpuscular Volume 80.3 fL (80.0-98.0); Monocytes Absolute Auto 0.5 X10*3/uL (0.1-1.2); Neutrophils Absolute Auto 6.8 x10*3/uL (2.0-8.3); Neutrophils Percent Auto 74.9 % (45-73); Platelet Count 240 X10*3/uL (160-400); Red Blood Count 5.37 X10*6/uL (4.60-5.80); Red Cell Distribution Width 13.9 % (11.0-16.0); White Blood Count 9.1 X10*3/uL (4.8-10.8)
[2024-06-22 12:39] LABS: Alanine Aminotransferase 13 U/L (0-40); Albumin Level 4.1 g/dL (3.5-5.0); Alkaline Phosphatase 62 U/L (39-117); Anion Gap 15 (12-20); Aspartate Amino Transferase 11 U/L (5-37); Bilirubin Total 0.5 mg/dL (0.0-1.0); Blood Urea Nitrogen 12 mg/dL (9-16); Calcium 9.4 mg/dL (8.4-10.2); Carbon Dioxide 21 mmol/L (22-29); Chloride 107 mmol/L (96-108); Creatinine Clr Calc Pharmacy 117.4; Estimated Glomerular Filt Rate > 60; Glucose Random 160 mg/dL (60-115); Potassium 3.1 mmol/L (3.3-5.1); Sodium 140 mmol/L (135-145); Total Protein 7.2 g/dL (6.5-8.0)
[2024-06-22 12:44] LABS: Influenza A PCR NEGATIVE (Negative); Influenza B PCR NEGATIVE (Negative); Resp Syncy Virus RNA Qual PCR NEGATIVE (Negative); SARS COV2 PCR INHOUSE NEGATIVE (Negative)
[2024-06-22] MEDS: Pantoprazole Sodium 40 MG/10 ML VIAL IVPUSH (12:49)
[2024-06-22] MEDS: iohexoL 350 MG/ML 100 ML INFUS..BTL IV (12:55)
[2024-06-22 13:30] LABS: Appearance Urine Clear; Color Urine Yellow; Glucose Urine UA Negative (Negative); Leukocyte Esterase Urine Negative (Negative); Nitrite Urine Negative (Negative); PH 5.5 (5.0-9.0); Specific Gravity - Urine >= 1.030 (1.005-1.025); Urine Blood Negative (Negative); Urine Ketones 15 mg/dL (Negative); Urine Protein Trace mg/dL (Neg-Trace)
[2024-06-22] MEDS: HYDROmorphone HCl 1 MG/ML SYRINGE IVPUSH ×2 (13:51→17:01)
[2024-06-22] MEDS: Ketorolac Tromethamine 15 MG/ML VIAL IVPUSH (13:51)
[2024-06-22] MEDS: Piperacillin Sodium/Tazobactam 3.375 GM in 0.9 % Sodium Chloride 50 ML IV ×2 (15:19→21:51)
--- NOTE | 2024-06-22 17:06 | PC.NURSE ---
Pt let this RN know his pain was starting to come back, ARAVIND Osman notified. Pt medicated per DEC with 1mg Dilaudid. Warm blankets given, call sanchez within reach, all needs met at this time.
--- NOTE | 2024-06-22 17:38 | PHA.MEDREC ---
Pharmacy Consult ? Medication Reconciliation Pharmacy has completed the medication reconciliation.
--- NOTE | 2024-06-22 18:33 | PM.IMHP ---
History of Present Illness Date of Service: 06/22/24 Attending physician on admission: Jasmin Ennis Chief Complaint: Diverticulitis 33 y/o M with hx history significant obesity, elevated blood pressure readings, nonalcoholic fatty liver disease-came to ed with abdominal pain. Patient states that the pain started yesterday after having a bowel movement and then today, it got significantly worse. he says this is first time he has this pain, cta bd showed -suspicious for acute diverticulitis with contained microperforation. There is extension of the inflammatory process into the presacral space with small volume retroperitoneal free air also noted. No discrete drainable abscess collection is seen.As per ED patient is requiring lot of IV pain medication to control pain, also discussed with surgery by ED recommended medical on patient for IV antibiotics, we have placed surgical consult also. No leukocytosis, no fever, mild hypokalemia. Patient denies any nausea, vomiting, fever, chills, chest pain, shortness of breath, back pain, night sweats, pain with urination, increased urinary frequency, increased urinary urgency, blood in urine or stool, recent trauma or falls, bowel incontinence, bladder incontinence, or any other complaints at this time. Review of Systems Review of Systems: As above. Yes all other systems are reviewed and are negative [facility] Medical History Fatty liver disease, nonalcoholic Family History Father Diabetes Mother No problems noted. Surgical History No pertinent past surgical history Social History Housing: Apartment Housing Other:: living with parents Alcohol intake: former Patient Tobacco Use Status: Never used Tobacco e-Cigarette/Vaping Use: Never Used Advance Directives: No service: No Current occupational status: disabled Cognitive needs: No Hearing needs: No Vision needs: Yes Meds Allergies Allergy/AdvReac Type Severity Reaction Status Date / Time No Known Allergies Allergy Verified 06/22/24 11:29 [No Known Allergies*] Active Medications: Current Medications Acetaminophen (Acetaminophen 325 Mg Tablet) 650 mg PO Q6H PRN PRN Reason: Pain, Mild (Pain Scale 1-3), fever or headache Acetaminophen (Acetaminophen 325 Mg Tablet) 975 mg PO Q6H PRN PRN Reason: Pain, Moderate(Pain Scale 4-6) Calcium Carbonate (Calcium Carbonate 750 Mg Tab.Chew) 750 mg PO Q4H PRN PRN Reason: Heartburn Enoxaparin Sodium (Enoxaparin Sodium 40 Mg/0.4 Ml Syringe) 40 mg SUBCUT Q24H CHELITA Hydromorphone HCl (Hydromorphone Hcl 1 Mg/Ml Syringe) 1 mg IVPUSH Q6H PRN; Protocol PRN Reason: Pain, Moderate(Pain Scale 4-6) Lactated Ringer's (Lr) 1,000 mls @ 80 mls/hr IVCONT .[id number] CHELITA Piperacillin Sod/Tazobactam (Sod 3.375 gm/ Sodium Chloride) 50 mls @ 100 mls/hr IV Q6H CHELITA Magnesium Hydroxide (Milk Of Magnesia 30 Ml Oral.Susp) 30 ml PO DAILY PRN PRN Reason: Constipation Melatonin (Melatonin 3 Mg Tablet) 6 mg PO BEDTIME PRN PRN Reason: Insomnia Sodium Chloride (0.9 % Sodium Chloride Flush 3 Ml Syringe) 3 ml IVFLUSH QSHIFT CHELITA Home Medications ?Medication ?Instructions ?Recorded ?Confirmed ?Last Taken ?Type acetaminophen 325 mg tablet 650 mg PO Q6H PRN Pain 06/22/24 06/22/24 Unknown History (Tylenol) Physical Exam Vital Signs and Narrative: Vital Signs: Last Vital Signs Temp 98.9 F 06/22/24 17:32 Pulse 85 06/22/24 17:32 Resp 16 06/22/24 17:32 BP 141/76 H 06/22/24 17:32 Pulse Ox 99 06/22/24 17:32 O2 Del Method Room Air 06/22/24 17:32 BMI result Body Mass Index 37.4 Appearance: Alert.? Oriented X3.? not in distress.? Eyes: Pupils equal, round and reactive to light.? Sclera nonicteric.? Moist mucous membranes. cvs: rrr, [id number] . res: clear to auscultation ,no rhonchii or wheezing abd: no rebound or guarding ,tenderness in LLq area , bs present. ext pulses present , no cyanosis . neuro: axo3 , nonfocal. Results Labs 06/22/24 12:19 06/22/24 12:19 Labs: Laboratory Results - last 24 hr 06/22/24 06/22/24 06/22/24 11:55 12:19 13:16 MCV 80.3 MCH 27.2 MCHC 33.9 RDW 13.9 Plt Count 240 MPV 10.0 Immature Gran % (Auto) 0.3 Neut % (Auto) 74.9 H Lymph % (Auto) 16.4 L [place] % (Auto) 5.0 Eos % (Auto) 2.8 Baso % (Auto) 0.6 Lymph # (Auto) 1.5 [place] # (Auto) 0.5 Eos # (Auto) 0.3 Baso # (Auto) 0.1 Abs Immat Gran (auto) 0.03 Absolute Neuts (auto) 6.8 Absolute Nucleated RBC 0.000 Nucleated RBC % (auto) 0.0 Anion Gap 15 Estim Creat Clear Calc 117.4 Estimated GFR > 60 Random Glucose 160 H Calcium 9.4 Magnesium 2.0 Total Bilirubin 0.5 AST 11 ALT 13 Alkaline Phosphatase 62 Total Protein 7.2 Albumin 4.1 Urine Color Yellow Urine Appearance Clear Urine pH 5.5 Ur Specific [place] >= 1.030 H Urine Protein Trace Urine Glucose (UA) Negative Urine Ketones 15 Urine Blood Negative Urine Nitrite Negative Ur Leukocyte Esterase Negative Influenza Type A (PCR) NEGATIVE Influenza Type B (PCR) NEGATIVE RSV RNA Qual (PCR) NEGATIVE SARS-CoV-2 RNA (RT-PCR) NEGATIVE Imaging Radiologist's Impressions: Impressions Abdomen/Pelvis CT 06/22/24 11:27 IMPRESSION: * Abnormal circumferential bowel wall thickening and enhancement of the distal sigmoid colon with prominent surrounding fat stranding and edema. Findings are suspicious for acute diverticulitis with contained microperforation. There is extension of the inflammatory process into the presacral space with small volume retroperitoneal free air also noted. No discrete drainable abscess collection is seen. * Prominent posterior disc osteophyte complex at the L4-5 level causes moderate spinal stenosis. Smaller posterior disc osteophyte complex is seen at the L5-S1 level without significant spinal stenosis. This critical result was discussed with Dr. Lopez 06/22/2024, 4:51 PM and it was ascertained that the content and urgency of this report was understood at the time of direct communication. Electronically signed by: Deya Colon MD 06/22/2024 04:54 PM EDT RP Assessment and Plan (1) Diverticulitis: Status: Acute (2) Perforation bowel: Status: Acute Plan 33 y/o M with hx history significant obesity, elevated blood pressure readings, nonalcoholic fatty liver disease-came to ed with abdominal pain-admitted for acute diverticulitis . Acute diverticulitis with microperforation Patient has significant pain in left lower quadrant No fever or elevated white count Started patient on npo,IV Zosyn, iv dilaudid. ed d/w case with general suregry rec hospitalist admission. surgery eval elevated blood pressure readings : moniter bp . dvt prophylax : hold s/c lovenox . Patient will benefit from 2 midnight stays considering has episode of acute diverticulitis with microperforation-required IV hydration, NPO, IV Zosyn and IV pain meds Dilaudid for pain control, also need surgical input for further management. Quality Stroke Does the patient have a stroke diagnosis?: No VTE Prior VTE?: No VTE Risk Level:: Medical - moderate - high VTE Device Contraindication: N/A - Device Ordered VTE Drug Contraindication: N/A - Med Ordered
[2024-06-22] MEDS: Lactated Ringers 1,000 ML 80 ML IVCONT (18:43)
[2024-06-22] MEDS: Lidocaine 4 % Patch ADH..PATCH 1 PATCH TRANSDERMA (18:44)
[2024-06-22] MEDS: Acetaminophen 325 MG TABLET 650 MG PO (19:45)
--- NOTE | 2024-06-22 20:13 | PC.NURSE ---
Pt spiked fever 103.1 oral, refused rectal temp. Received 650 mg Tylenol. HR 100-110's, Pal NAZARIO aware. Also asked if pt should receive Lovenox d/t possible surgery. awaiting response.
[2024-06-22] MEDS: Enoxaparin Sodium 40 MG/0.4 ML SYRINGE SUBCUT (21:50)
[2024-06-22 21:51] LABS: Lactic Acid 1.2 mmol/L (0.5-2.0)
--- NOTE | 2024-06-22 22:29 | PM.EVENT ---
Event Note Date of Service: 06/22/24 Event Note: Notify by nursing at approximately 21:00 the patient had spiked a fever of 103.1 and had become tachycardic up to 103. Patient thus met sepsis criteria with diverticulitis, tachycardia, and fever. BP was normotensive at 131/71. Lactic acid was drawn which was WNL at 1.2. Patient being appropriately covered for sepsis with IVF and Zosyn. No additional workup or treatment required at this time. Time Spent With Patient Time: Total time managing care of this patient today ____ minutes.
[2024-06-23] VITALS (11 sets, daily range): BP systolic 117–139; BP diastolic 63–76; PULSE 91–130; RESP 14–20; TEMP 36.1–38.8; O2SAT 94–98
[2024-06-23] MEDS: Piperacillin Sodium/Tazobactam 3.375 GM in 0.9 % Sodium Chloride 50 ML IV ×4 (01:56→20:59)
[2024-06-23] MEDS: Acetaminophen 325 MG TABLET 650 MG PO ×2 (02:02→12:14)
--- NOTE | 2024-06-23 02:07 | PC.NURSE ---
[facility] [place] 0148 due to pt HR up to 130, but stated it was currently 124. Patient temp is up to 101.8 and tylenol given
[2024-06-23] MEDS: HYDROmorphone HCl 1 MG/ML SYRINGE IVPUSH ×3 (02:29→19:35)
[2024-06-23 06:56] LABS: MANUAL DIFF FLAG NO
[2024-06-23 07:11] LABS: Basophils Absolute Auto 0.1 X10*3/uL (0.0-0.2); Basophils Percent Auto 0.4 % (0-2); Eosinophils Percent Auto 0.1 % (0-4); Hematocrit 41.8 % (42.0-52.0); Hemoglobin 13.8 g/dl (14.0-18.0); Imm Gran Abs Auto 0.19 X10*3/uL (0.00-0.03); Imm Gran Pct Auto 1.1 % (0.0-0.4); Lymphocytes Percent Auto 5.9 % (20-40); Mean Corpuscular Hemoglobin 27.3 pg (27.0-33.0); Mean Corpuscular Volume 82.8 fL (80.0-98.0); Mean Platelet Volume 10.4 fL (9.4-12.4); Monocytes Absolute Auto 1.1 X10*3/uL (0.1-1.2); Monocytes Percent Auto 6.6 % (2-11); Neutrophils Absolute Auto 14.5 x10*3/uL (2.0-8.3); Neutrophils Percent Auto 85.9 % (45-73); Platelet Count 265 X10*3/uL (160-400); Red Blood Count 5.05 X10*6/uL (4.60-5.80); Red Cell Distribution Width 13.9 % (11.0-16.0); White Blood Count 16.8 X10*3/uL (4.8-10.8)
[2024-06-23] MEDS: Lactated Ringers 1,000 ML 80 ML IVCONT (07:39)
[2024-06-23] MEDS: Potassium Chloride/H20 10 MEQ/100 ML PIGGYBACK 100 MEQ IV ×2 (07:39→08:55)
--- NOTE | 2024-06-23 08:18 | PM.CNGS ---
History of Present Illness Consult details Consult date: 06/23/24 Requesting physician: Dejon Slade Narrative: 33-year-old male patient presenting with complaints of abdominal pain located in the lower abdomen. Patient reports the pain began proximally 2 days ago after having a bowel movement and became worse over the day yesterday. He subsequently presented to the emergency department for further evaluation. He denies a previous history of similar pain but denies a history of nausea, vomiting, fever, chills, or blood per rectum. On examination in the emergency department he was noted to be tender in the left and right lower quadrants. Laboratories revealed a normal WBC however CT abdomen and pelvis revealed evidence of sigmoid diverticulitis with a microperforation and extraluminal air within the pelvis and within the mesentery of the sigmoid colon. Findings were suggestive of a microperforated sigmoid colon. This morning he feels improved with a pain level of 3/10 compared to 10/10 yesterday. He has not received pain medication throughout the night. This morning his WBC has increased to 16.8 although symptomatically he is much improved. He has been passing flatus this morning but denies any bowel movement. Review of Systems Review of Systems: Yes all other systems are reviewed and are negative Constitutional: Constitutional: Denies chills, Denies fever(s), Denies headache(s), Denies poor appetite and Denies weakness ENT: Denies headache(s) Cardiovascular: Cardiovascular: Denies chest pain, Denies irregular heart rhythm, Denies palpitations and Denies dyspnea Respiratory: Respiratory: Denies cough, Denies excessive phlegm production and Denies dyspnea Gastrointestinal: Gastrointestinal: Reports abdominal pain, Denies bloating, Denies change in bowel habits, Reports constipation, Denies heartburn, Denies diarrhea, Denies nausea and Denies vomiting Genitourinary: Genitourinary: Denies difficulty urinating and Denies urinary frequency Musculoskeletal: Musculoskeletal: Denies back pain, Denies muscle weakness and Denies numbness Integumentary/Breasts: Skin/Breast: Denies changing lesions and Denies unusual bruising Neurologic: Denies headache(s), Denies numbness, Denies paresthesias and Denies weakness Psychiatric: Psychiatric: Denies anxiety and Denies depression Endocrine: Endocrine: Denies palpitations Hematologic/Lymphatic: Hematologic/Lymphatic: Denies lymphadenopathy PMFSH Past Medical History Medical History Fatty liver disease, nonalcoholic Family History Family History Father Diabetes Mother No problems noted. Surgical History Surgical History No pertinent past surgical history Social History Social History Household Members: Other Household Members Other:: mom Housing: Apartment Housing Other:: living with parents Do you presently have visiting nurse or other home services: No Alcohol intake: former Patient Tobacco Use Status: Never used Tobacco e-Cigarette/Vaping Use: Never Used service: No Current occupational status: disabled Cognitive needs: No Hearing needs: No Vision needs: Yes Meds Allergies Allergy/AdvReac Type Severity Reaction Status Date / Time No Known Allergies Allergy Verified 06/22/24 11:29 [No Known Allergies*] Active Medications: Current Medications Acetaminophen (Acetaminophen 325 Mg Tablet) 650 mg PO Q6H PRN PRN Reason: Pain, Mild (Pain Scale 1-3), fever or headache Last Admin: 06/23/24 02:02 Dose: 650 mg Acetaminophen (Acetaminophen 325 Mg Tablet) 975 mg PO Q6H PRN PRN Reason: Pain, Moderate(Pain Scale 4-6) Calcium Carbonate (Calcium Carbonate 750 Mg Tab.Chew) 750 mg PO Q4H PRN PRN Reason: Heartburn Enoxaparin Sodium (Enoxaparin Sodium 40 Mg/0.4 Ml Syringe) 40 mg SUBCUT Q24H [facility] Last Admin: 06/22/24 21:50 Dose: 40 mg Hydromorphone HCl (Hydromorphone Hcl 1 Mg/Ml Syringe) 1 mg IVPUSH Q6H PRN; Protocol PRN Reason: Pain, Moderate(Pain Scale 4-6) Last Admin: 06/23/24 02:29 Dose: 1 mg Piperacillin Sod/Tazobactam (Sod 3.375 gm/ Sodium Chloride) 50 mls @ 100 mls/hr IV Q6H [facility] Last Infusion: 06/23/24 02:30 Dose: Infused Potassium Chloride (Potassium Chloride/H20) 10 meq in 100 mls @ 100 mls/hr IV Q1H [facility] Stop: 06/23/24 09:14 Last Admin: 06/23/24 07:39 Dose: 100 mls/hr Magnesium Hydroxide (Milk Of Magnesia 30 Ml Oral.Susp) 30 ml PO DAILY PRN PRN Reason: Constipation Melatonin (Melatonin 3 Mg Tablet) 6 mg PO BEDTIME PRN PRN Reason: Insomnia Sodium Chloride (0.9 % Sodium Chloride Flush 3 Ml Syringe) 3 ml IVFLUSH QSHIFT [facility] Last Admin: 06/23/24 08:01 Dose: Not Given Home Medications ?Medication ?Instructions ?Recorded ?Confirmed ?Last Taken ?Type acetaminophen 325 mg tablet 650 mg PO Q6H PRN Pain 06/22/24 06/22/24 Unknown History (Tylenol) Physical Exam Vital Signs: Vital Signs: Last Vital Signs Temp 99.0 F 06/23/24 08:14 Pulse 100 06/23/24 08:14 Resp 18 06/23/24 08:14 BP 131/76 06/23/24 08:14 Pulse Ox 98 06/23/24 08:14 O2 Del Method Room Air 06/23/24 08:14 BMI result Body Mass Index 37.4 Const: General: cooperative and no acute distress Nutritional Appearance: well nourished Orientation/consciousness: patient oriented x3 Limitations: no limitations HEENT: Head: Yes normocephalic and Yes atraumatic Ears: hearing grossly normal bilaterally Resp: Effort & Inspection: normal respiratory effort, no audible wheezes, no cough and no respiratory distress Cardio: Jugular venous distension: no JVD GI: Inspection: Yes normal to inspection Palpation (GI): Soft to palpation, Tenderness to palpation present (GI) (To deep palpation) in the LLQ and in the RLQ, no guarding, not rigid, No hepatosplenomegaly present and No Rebound tenderness present Percussion: Yes normal to percussion Auscultation: normal bowel sounds Rectal Exam - Male: Yes deferred Skin: Other: Warm, dry, no rash Neuro: General: patient oriented x3 Extrem: General: Yes no clubbing, cyanosis or edema Results Labs 06/23/24 05:56 06/22/24 12:19 Labs: Abnormal lab results 06/22/24 06/22/24 06/23/24 Range/Units 12:19 13:16 05:56 WBC 16.8 H (4.8-10.8) X10*3/uL Hgb 13.8 L (14.0-18.0) g/dl Hct 41.8 L (42.0-52.0) % Immature Gran % (Auto) 1.1 H (0.0-0.4) % Neut % (Auto) 74.9 H 85.9 H (45-73) % Lymph % (Auto) 16.4 L 5.9 L (20-40) % Lymph # (Auto) 1.0 L (1.2-4.9) X10*3/uL Abs Immat Gran (auto) 0.19 H (0.00-0.03) X10*3/uL Absolute Neuts (auto) 14.5 H (2.0-8.3) x10*3/uL Potassium 3.1 L (3.3-5.1) mmol/L Carbon Dioxide 21 L (22-29) mmol/L Random Glucose 160 H (60-115) mg/dL Ur Specific [place] >= 1.030 H (1.005-1.025) Short CBC 06/22/24 06/23/24 Range/Units 12:19 05:56 WBC 9.1 16.8 H (4.8-10.8) X10*3/uL Hgb 14.6 13.8 L (14.0-18.0) g/dl Hct 43.1 41.8 L (42.0-52.0) % Plt Count 240 265 (160-400) X10*3/uL BMP 06/22/24 12:19 Sodium 140 Potassium 3.1 L Chloride 107 Carbon Dioxide 21 L BUN 12 Creatinine 1.03 Calcium 9.4 Liver Function 06/22/24 Range/Units 12:19 Total Bilirubin 0.5 (0.0-1.0) mg/dL AST 11 (5-37) U/L ALT 13 (0-40) U/L Alkaline Phosphatase 62 (39-117) U/L Albumin 4.1 (3.5-5.0) g/dL Urine 06/22/24 Range/Units 13:16 Urine Color Yellow Urine Appearance Clear Urine pH 5.5 (5.0-9.0) Ur Specific [place] >= 1.030 H (1.005-1.025) Urine Protein Trace (Neg-Trace) mg/dL Urine Glucose (UA) Negative (Negative) mg/dL All other labs normal. Imaging Additional studies: CT abdomen and pelvis: Assessment and Plan (1) Diverticulitis: Status: Acute (2) Perforation bowel: Status: Acute Plan 33-year-old male patient presenting with a 1st episode of diverticulitis, complicated with a microperforation with extraluminal air noted in the pelvis and in the mesentery. This morning the patient does feel improved and is noted to have an expected elevation of WBC. Recommend continuing the antibiotics. May start clear liquids today as his abdominal pain is much improved. Would anticipate elective sigmoid colectomy after bowel prep in a proximally 1-2 months. If the patient does not improve or if his symptoms worsen, a Kassy procedure would be required. Reviewed the plan in detail with the patient. He expressed understanding and agrees with the plan. Procedures Date of Service Date of Service: 06/23/24
--- NOTE | 2024-06-23 09:06 | MHC.CM.PN ---
PATIENT LIVES WITH HIS MOTHER AND IS INDEPENDENT WITH ADLS. NO DME OR VNA SERVICES. HE WALKS WHERE HE NEEDS TO GO. PCP IS PAPITO SILVERIO. THIS LAB INTERN EDUCATED PATIENT ON IMPORTANCE OF HCP. HE IS WILLING TO CONSIDER HIS MOTHER AND HIS [id number] BUT IS NOT YET READY TO COMPLETE A DOCUMENT. HE WOULD LIKE TO SPEAK WITH HIS [id number] FIRST, WHO CAN THEN EXPLAIN IT TO THE MOTHER (WHO IS [place] SPEAKING ONLY). OPTION OF USING A [facility] CONSULT[facility] ADDRESSED. PATIENT WILL CONSIDER AND IS AWARE THAT HE CAN ASK FOR ASSISTANCE AT ANY TIME DURING HIS STAY.
--- NOTE | 2024-06-23 09:09 | HO.PM.IMPN ---
Subjective Subjective Date of Service: 06/23/24 Interval History: diverticulitis Review of Systems abd pain somewhat improving overnight events noted no fever this morning Physical Exam Vital Signs: Vital Signs: Last Vital Signs Temp 99.0 F 06/23/24 08:14 Pulse 100 06/23/24 08:14 Resp 18 06/23/24 08:14 BP 131/76 06/23/24 08:14 Pulse Ox 98 06/23/24 08:14 O2 Del Method Room Air 06/23/24 08:14 BMI result Body Mass Index 37.4 Appearance: Alert.? Oriented X3.? cvs: rrr, [id number] . res: clear to auscultation ,no rhonchii or wheezing abd: no rebound or guarding ,tenderness in LLq area , bs present. ext pulses present , no cyanosis . neuro: axo3 , nonfocal. Objective Data Active Medications Acetaminophen (Acetaminophen 325 Mg Tablet) 650 mg PO Q6H PRN PRN Reason: Pain, Mild (Pain Scale 1-3), fever or headache Last Admin: 06/23/24 02:02 Dose: 650 mg Documented By: DEMETRIS Acetaminophen (Acetaminophen 325 Mg Tablet) 975 mg PO Q6H PRN PRN Reason: Pain, Moderate(Pain Scale 4-6) Calcium Carbonate (Calcium Carbonate 750 Mg Tab.Chew) 750 mg PO Q4H PRN PRN Reason: Heartburn Enoxaparin Sodium (Enoxaparin Sodium 40 Mg/0.4 Ml Syringe) 40 mg SUBCUT Q24H [facility] Last Admin: 06/22/24 21:50 Dose: 40 mg Documented By: RANDALL Hydromorphone HCl (Hydromorphone Hcl 1 Mg/Ml Syringe) 1 mg IVPUSH Q6H PRN; Protocol PRN Reason: Pain, Moderate(Pain Scale 4-6) Last Admin: 06/23/24 02:29 Dose: 1 mg Documented By: DEMETRIS Piperacillin Sod/Tazobactam (Sod 3.375 gm/ Sodium Chloride) 50 mls @ 100 mls/hr IV Q6H [facility] Last Infusion: 06/23/24 02:30 Dose: Infused Documented By: DEMETRIS Potassium Chloride (Potassium Chloride/H20) 10 meq in 100 mls @ 100 mls/hr IV Q1H [facility] Stop: 06/23/24 09:14 Last Admin: 06/23/24 08:55 Dose: 100 mls/hr Documented By: REMY Magnesium Hydroxide (Milk Of Magnesia 30 Ml Oral.Susp) 30 ml PO DAILY PRN PRN Reason: Constipation Melatonin (Melatonin 3 Mg Tablet) 6 mg PO BEDTIME PRN PRN Reason: Insomnia Sodium Chloride (0.9 % Sodium Chloride Flush 3 Ml Syringe) 3 ml IVFLUSH QSHIFT [facility] Last Admin: 06/23/24 08:01 Dose: Not Given Documented By: REMY Non-Admin Reason: IV Running Labs 06/23/24 05:56 06/22/24 12:19 Labs: Laboratory Results - last 24 hr 06/22/24 06/22/24 06/22/24 11:55 12:19 13:16 MCV 80.3 MCH 27.2 MCHC 33.9 RDW 13.9 Plt Count 240 MPV 10.0 Immature Gran % (Auto) 0.3 Neut % (Auto) 74.9 H Lymph % (Auto) 16.4 L [place] % (Auto) 5.0 Eos % (Auto) 2.8 Baso % (Auto) 0.6 Lymph # (Auto) 1.5 [place] # (Auto) 0.5 Eos # (Auto) 0.3 Baso # (Auto) 0.1 Abs Immat Gran (auto) 0.03 Absolute Neuts (auto) 6.8 Absolute Nucleated RBC 0.000 Nucleated RBC % (auto) 0.0 Anion Gap 15 Estim Creat Clear Calc 117.4 Estimated GFR > 60 Random Glucose 160 H Lactic Acid Calcium 9.4 Magnesium 2.0 Total Bilirubin 0.5 AST 11 ALT 13 Alkaline Phosphatase 62 Total Protein 7.2 Albumin 4.1 Urine Color Yellow Urine Appearance Clear Urine pH 5.5 Ur Specific [place] >= 1.030 H Urine Protein Trace Urine Glucose (UA) Negative Urine Ketones 15 Urine Blood Negative Urine Nitrite Negative Ur Leukocyte Esterase Negative Influenza Type A (PCR) NEGATIVE Influenza Type B (PCR) NEGATIVE RSV RNA Qual (PCR) NEGATIVE SARS-CoV-2 RNA (RT-PCR) NEGATIVE 06/22/24 06/23/24 21:34 05:56 MCV 82.8 MCH 27.3 MCHC 33.0 RDW 13.9 Plt Count 265 MPV 10.4 Immature Gran % (Auto) 1.1 H Neut % (Auto) 85.9 H Lymph % (Auto) 5.9 L [place] % (Auto) 6.6 Eos % (Auto) 0.1 Baso % (Auto) 0.4 Lymph # (Auto) 1.0 L [place] # (Auto) 1.1 Eos # (Auto) 0.0 Baso # (Auto) 0.1 Abs Immat Gran (auto) 0.19 H Absolute Neuts (auto) 14.5 H Absolute Nucleated RBC 0.000 Nucleated RBC % (auto) 0.0 Anion Gap Estim Creat Clear Calc Estimated GFR Random Glucose Lactic Acid 1.2 Calcium Magnesium Total Bilirubin AST ALT Alkaline Phosphatase Total Protein Albumin Urine Color Urine Appearance Urine pH Ur Specific [place] Urine Protein Urine Glucose (UA) Urine Ketones Urine Blood Urine Nitrite Ur Leukocyte Esterase Influenza Type A (PCR) Influenza Type B (PCR) RSV RNA Qual (PCR) SARS-CoV-2 RNA (RT-PCR) Assessment and Plan (1) Diverticulitis: Status: Acute Assessment and Plan: 33 y/o M with hx history significant obesity, elevated blood pressure readings, nonalcoholic fatty liver disease-came to ed with abdominal pain-admitted for acute diverticulitis . Acute diverticulitis with microperforation Patient has significant pain in left lower quadrant No fever or elevated white count Started patient on npo,IV Zosyn, iv dilaudid. ed d/w case with general suregry rec hospitalist admission. surgery eval elevated blood pressure readings : moniter bp . dvt prophylax : hold s/c lovenox . ongoing need for acute diverticulitis with microperforation-required IV hydration, NPO, IV Zosyn and IV pain meds Dilaudid for pain control, also need surgical input for further management. Quality Stroke Does the patient have a stroke diagnosis?: No VTE Prior VTE?: No VTE Risk Level:: Medical - moderate - high VTE Device Contraindication: N/A - Device Ordered VTE Drug Contraindication: N/A - Med Ordered
[2024-06-23 13:13] LABS: Hematocrit 36.2 % (42.0-52.0); Hemoglobin 12.2 g/dl (14.0-18.0); Mean Corpuscular HGB Conc 33.7 g/dl (31.0-36.0); Mean Corpuscular Hemoglobin 27.2 pg (27.0-33.0); Mean Corpuscular Volume 80.8 fL (80.0-98.0); Mean Platelet Volume 9.4 fL (9.4-12.4); Platelet Count 220 X10*3/uL (160-400); Red Blood Count 4.48 X10*6/uL (4.60-5.80); Red Cell Distribution Width 13.7 % (11.0-16.0); White Blood Count 15.1 X10*3/uL (4.8-10.8)
[2024-06-23 13:24] LABS: Anion Gap 14 (12-20); Blood Urea Nitrogen 10 mg/dL (9-16); Calcium 8.8 mg/dL (8.4-10.2); Carbon Dioxide 23 mmol/L (22-29); Chloride 104 mmol/L (96-108); Creatinine Clr Calc Pharmacy 109.9; Estimated Glomerular Filt Rate > 60; Glucose Random 127 mg/dL (60-115); Potassium 3.1 mmol/L (3.3-5.1); Sodium 138 mmol/L (135-145)
[2024-06-23] MEDS: Enoxaparin Sodium 40 MG/0.4 ML SYRINGE SUBCUT (19:29)
[2024-06-23] MEDS: 0.9 % Sodium Chloride Flush 3 ML SYRINGE IVFLUSH (21:05)
[2024-06-24] MEDS: Acetaminophen 325 MG TABLET 650 MG PO ×2 (00:30→22:39)
[2024-06-24] MEDS: HYDROmorphone HCl 1 MG/ML SYRINGE IVPUSH ×4 (02:21→23:36)
[2024-06-24] MEDS: Piperacillin Sodium/Tazobactam 3.375 GM in 0.9 % Sodium Chloride 50 ML IV ×4 (02:22→21:02)
[2024-06-24 03:29] VITALS: BP 129/77; PULSE 88; RESP 16; TEMP 36.2; O2SAT 98
[2024-06-24 07:36] VITALS: BP 135/76; PULSE 97; RESP 16; TEMP 36.7; O2SAT 98
--- NOTE | 2024-06-24 08:30 | P.PNGS_ITS ---
Subjective Subjective Date of Service: 06/24/24 Interval history: Had some nausea yesterday but resolved. Reports improvement in abd pain, continues to c/o headache. Passing flatus and having loose BMs. Physical Exam 2 Vital Signs: Vital Signs: Last Vital Signs Temp 98.0 F 06/24/24 07:36 Pulse 97 06/24/24 07:36 Resp 16 06/24/24 07:36 BP 135/76 06/24/24 07:36 Pulse Ox 98 06/24/24 07:36 O2 Del Method Room Air 06/24/24 07:36 BMI result Body Mass Index 37.4 Const: General: comfortable, no acute distress and alert Nutritional Appearance: obese Orientation/consciousness: patient oriented x3 Resp: Effort & Inspection: normal respiratory effort GI: Other: corpulent abdomen Inspection: No distended Palpation (GI): Soft to palpation, Tenderness to palpation present (GI) (moderate suprapubic, LLQ tenderness) with no rebound tenderness and no guarding Skin: General skin exam: no rashes or lesions noted Neuro: General: patient oriented x3 and moves all extremities Objective Data Active Medications Acetaminophen (Acetaminophen 325 Mg Tablet) 650 mg PO Q6H PRN PRN Reason: Pain, Mild (Pain Scale 1-3), fever or headache Last Admin: 06/24/24 00:30 Dose: 650 mg Documented By: SAGAR Acetaminophen (Acetaminophen 325 Mg Tablet) 975 mg PO Q6H PRN PRN Reason: Pain, Moderate(Pain Scale 4-6) Calcium Carbonate (Calcium Carbonate 750 Mg Tab.Chew) 750 mg PO Q4H PRN PRN Reason: Heartburn Enoxaparin Sodium (Enoxaparin Sodium 40 Mg/0.4 Ml Syringe) 40 mg SUBCUT Q24H [facility] Last Admin: 06/23/24 19:29 Dose: 40 mg Documented By: SAGAR Hydromorphone HCl (Hydromorphone Hcl 1 Mg/Ml Syringe) 1 mg IVPUSH Q6H PRN; Protocol PRN Reason: Pain, Moderate(Pain Scale 4-6) Last Admin: 06/24/24 02:21 Dose: 1 mg Documented By: SAGAR Piperacillin Sod/Tazobactam (Sod 3.375 gm/ Sodium Chloride) 50 mls @ 100 mls/hr IV Q6H [facility] Last Infusion: 06/24/24 03:09 Dose: Infused Documented By: SAGAR Magnesium Hydroxide (Milk Of Magnesia 30 Ml Oral.Susp) 30 ml PO DAILY PRN PRN Reason: Constipation Melatonin (Melatonin 3 Mg Tablet) 6 mg PO BEDTIME PRN PRN Reason: Insomnia Ondansetron HCl (Ondansetron Hcl 4 Mg/2 Ml Vial) 4 mg IVPUSH Q6H PRN PRN Reason: Nausea and Vomiting Sodium Chloride (0.9 % Sodium Chloride Flush 3 Ml Syringe) [facility] Last Admin: 06/23/24 21:05 Dose: 3 ml Documented By: SAGAR Labs 06/23/24 12:59 06/23/24 12:59 Labs: Laboratory Results - last 24 hr 06/23/24 12:59 MCV 80.8 MCH 27.2 MCHC 33.7 RDW 13.7 Plt Count 220 MPV 9.4 Absolute Nucleated RBC 0.000 Nucleated RBC % (auto) 0.0 Anion Gap 14 Estim Creat Clear Calc 109.9 Estimated GFR > 60 Random Glucose 127 H Calcium 8.8 D Procedures Date of Service Date of Service: 06/24/24 Progress Note: A&P Assessment and plan (1) Diverticulitis: Status: Acute Plan Admitted for sigmoid diverticulitis with microperforation. Improving slowly. Hemodynamically stable, afebrile. Abdomen remains with suprapubic tenderness but improved, without peritoneal signs. WBC downtrending yesterday, AM labs pending. Can continue supportive measures for now including IV abx, clear liquids. Time Spent With Patient Time: Total time managing care of this patient today ____ minutes. Quality Stroke Does the patient have a stroke diagnosis?: No VTE Prior VTE?: No VTE Risk Level:: Medical - moderate - high VTE Device Contraindication: N/A - Device Ordered VTE Drug Contraindication: N/A - Med Ordered
[2024-06-24] MEDS: 0.9 % Sodium Chloride Flush 3 ML SYRINGE IVFLUSH ×3 (08:47→23:36)
[2024-06-24 09:28] LABS: MANUAL DIFF FLAG NO
[2024-06-24 09:35] LABS: Basophils Percent Auto 0.2 % (0-2); Eosinophils Percent Auto 0.3 % (0-4); Hematocrit 36.9 % (42.0-52.0); Hemoglobin 12.4 g/dl (14.0-18.0); Imm Gran Abs Auto 0.08 X10*3/uL (0.00-0.03); Imm Gran Pct Auto 0.6 % (0.0-0.4); Lymphocytes Absolute Auto 0.9 X10*3/uL (1.2-4.9); Lymphocytes Percent Auto 6.1 % (20-40); Mean Corpuscular HGB Conc 33.6 g/dl (31.0-36.0); Mean Corpuscular Hemoglobin 26.8 pg (27.0-33.0); Mean Corpuscular Volume 79.9 fL (80.0-98.0); Mean Platelet Volume 9.7 fL (9.4-12.4); Monocytes Absolute Auto 0.9 X10*3/uL (0.1-1.2); Monocytes Percent Auto 6.1 % (2-11); Neutrophils Absolute Auto 12.6 x10*3/uL (2.0-8.3); Neutrophils Percent Auto 86.7 % (45-73); Platelet Count 226 X10*3/uL (160-400); Red Blood Count 4.62 X10*6/uL (4.60-5.80); Red Cell Distribution Width 13.5 % (11.0-16.0); White Blood Count 14.5 X10*3/uL (4.8-10.8)
[2024-06-24] MEDS: Potassium Chloride/H20 10 MEQ/100 ML PIGGYBACK 100 MEQ IV ×2 (11:03→13:17)
--- NOTE | 2024-06-24 11:07 | HO.PM.IMPN ---
Subjective Subjective Date of Service: 06/24/24 Interval History: Sepsis secondary to acute diverticulitis Review of Systems Patient is still symptomatic-abdominal pain, nausea, still can not tolerate p.o.. No fever or chills. Physical Exam Vital Signs: Vital Signs: Last Vital Signs Temp 98.0 F 06/24/24 07:36 Pulse 97 06/24/24 07:36 Resp 16 06/24/24 07:36 BP 135/76 06/24/24 07:36 Pulse Ox 98 06/24/24 07:36 O2 Del Method Room Air 06/24/24 07:36 BMI result Body Mass Index 37.4 Appearance: Alert.? Oriented X3.? cvs: rrr, [id number] . res: clear to auscultation ,no rhonchii or wheezing abd: no rebound or guarding ,tenderness in LLq area , bs present. ext pulses present , no cyanosis . neuro: axo3 , nonfocal. Objective Data Active Medications Acetaminophen (Acetaminophen 325 Mg Tablet) 650 mg PO Q6H PRN PRN Reason: Pain, Mild (Pain Scale 1-3), fever or headache Last Admin: 06/24/24 00:30 Dose: 650 mg Documented By: SAGAR Acetaminophen (Acetaminophen 325 Mg Tablet) 975 mg PO Q6H PRN PRN Reason: Pain, Moderate(Pain Scale 4-6) Calcium Carbonate (Calcium Carbonate 750 Mg Tab.Chew) 750 mg PO Q4H PRN PRN Reason: Heartburn Enoxaparin Sodium (Enoxaparin Sodium 40 Mg/0.4 Ml Syringe) 40 mg SUBCUT Q24H [facility] Last Admin: 06/23/24 19:29 Dose: 40 mg Documented By: SAGAR Hydromorphone HCl (Hydromorphone Hcl 1 Mg/Ml Syringe) 1 mg IVPUSH Q6H PRN; Protocol PRN Reason: Pain, Moderate(Pain Scale 4-6) Last Admin: 06/24/24 10:56 Dose: 1 mg Documented By: MIRI Piperacillin Sod/Tazobactam (Sod 3.375 gm/ Sodium Chloride) 50 mls @ 100 mls/hr IV Q6H [facility] Last Infusion: 06/24/24 09:50 Dose: Infused Documented By: MIRI Potassium Chloride (Potassium Chloride/H20) 10 meq in 100 mls @ 100 mls/hr IV Q1H [facility] Stop: 06/24/24 11:59 Last Admin: 06/24/24 11:03 Dose: 100 mls/hr Documented By: MIRI Magnesium Hydroxide (Milk Of Magnesia 30 Ml Oral.Susp) 30 ml PO DAILY PRN PRN Reason: Constipation Melatonin (Melatonin 3 Mg Tablet) 6 mg PO BEDTIME PRN PRN Reason: Insomnia Ondansetron HCl (Ondansetron Hcl 4 Mg/2 Ml Vial) 4 mg IVPUSH Q6H PRN PRN Reason: Nausea and Vomiting Sodium Chloride (0.9 % Sodium Chloride Flush 3 Ml Syringe) 3 ml IVFLUSH QSHIFT [facility] Last Admin: 06/24/24 08:47 Dose: 3 ml Documented By: MIRI Labs 06/24/24 09:02 06/23/24 12:59 Labs: Laboratory Results - last 24 hr 06/23/24 06/24/24 12:59 09:02 MCV 80.8 79.9 L MCH 27.2 26.8 L MCHC 33.7 33.6 RDW 13.7 13.5 Plt Count 220 226 MPV 9.4 9.7 Immature Gran % (Auto) 0.6 H Neut % (Auto) 86.7 H Lymph % (Auto) 6.1 L [place] % (Auto) 6.1 Eos % (Auto) 0.3 Baso % (Auto) 0.2 Lymph # (Auto) 0.9 L [place] # (Auto) 0.9 Eos # (Auto) 0.0 Baso # (Auto) 0.0 Abs Immat Gran (auto) 0.08 H Absolute Neuts (auto) 12.6 H Absolute Nucleated RBC 0.000 0.000 Nucleated RBC % (auto) 0.0 0.0 Anion Gap 14 Estim Creat Clear Calc 109.9 Estimated GFR > 60 Random Glucose 127 H Calcium 8.8 D Assessment and Plan (1) Diverticulitis: Status: Acute Assessment and Plan: 33 y/o M with hx history significant obesity, elevated blood pressure readings, nonalcoholic fatty liver disease-came to ed with abdominal pain-admitted for acute diverticulitis . sepsis sec to acute diverticulitis: Still symptomatic Sepsis resolved Currently continue IV fluid, IV antibiotics, IV pain medications, clears if tolerates . surgery following elevated blood pressure readings : moniter bp . dvt prophylax: s/c lovenox ongoing need for acute diverticulitis with microperforation-required IV hydration, NPO, IV Zosyn and IV pain meds Dilaudid for pain control, also need surgical input for further management. Quality Stroke Does the patient have a stroke diagnosis?: No VTE Prior VTE?: No VTE Risk Level:: Medical - moderate - high VTE Device Contraindication: N/A - Device Ordered VTE Drug Contraindication: N/A - Med Ordered
[2024-06-24 12:00] VITALS: BP 123/69; PULSE 86; RESP 16; TEMP 37.2; O2SAT 97
[2024-06-24 15:55] VITALS: BP 144/87; PULSE 84; RESP 17; TEMP 36.7; O2SAT 100
[2024-06-24 20:00] VITALS: BP 161/94; PULSE 94; TEMP 36.3; O2SAT 94
[2024-06-24] MEDS: Enoxaparin Sodium 40 MG/0.4 ML SYRINGE SUBCUT (21:00)
[2024-06-24 23:24] VITALS: BP 136/81; PULSE 94; RESP 18; TEMP 36.2; O2SAT 99
[2024-06-25 03:29] VITALS: BP 142/79; PULSE 83; RESP 18; TEMP 36.2; O2SAT 99
[2024-06-25] MEDS: Piperacillin Sodium/Tazobactam 3.375 GM in 0.9 % Sodium Chloride 50 ML IV ×4 (03:55→20:58)
[2024-06-25 08:00] VITALS: BP 142/77; PULSE 86; RESP 16; TEMP 36.1; O2SAT 100
--- NOTE | 2024-06-25 08:03 | P.PNGS_ITS ---
Subjective Subjective Date of Service: 06/25/24 Interval history: Patient reports some mild abdominal pain in the left lower quadrant but overall feels improved. He did have a small liquid bowel movement yesterday. Had some liquids but does not like the soup. Physical Exam 2 Vital Signs: Vital Signs: Last Vital Signs Temp 97.2 F 06/25/24 03:29 Pulse 83 06/25/24 03:29 Resp 18 06/25/24 03:29 BP 142/79 H 06/25/24 03:29 Pulse Ox 99 06/25/24 03:29 O2 Del Method Room Air 06/24/24 23:24 O2 Flow Rate 99 06/24/24 20:00 BMI result Body Mass Index 37.4 Const: General: no acute distress Nutritional Appearance: well nourished Orientation/consciousness: patient oriented x3 Resp: Effort & Inspection: normal respiratory effort GI: Palpation (GI): Soft to palpation, Tenderness to palpation present (GI) in the LLQ, no guarding, not rigid and No Rebound tenderness present Skin: General skin exam: no rashes or lesions noted Neuro: General: patient oriented x3 Extrem: General: No edema Objective Data Active Medications Acetaminophen (Acetaminophen 325 Mg Tablet) 650 mg PO Q6H PRN PRN Reason: Pain, Mild (Pain Scale 1-3), fever or headache Last Admin: 06/24/24 22:39 Dose: 650 mg Documented By: LANETTEASY Acetaminophen (Acetaminophen 325 Mg Tablet) 975 mg PO Q6H PRN PRN Reason: Pain, Moderate(Pain Scale 4-6) Calcium Carbonate (Calcium Carbonate 750 Mg Tab.Chew) 750 mg PO Q4H PRN PRN Reason: Heartburn Enoxaparin Sodium (Enoxaparin Sodium 40 Mg/0.4 Ml Syringe) 40 mg SUBCUT Q24H [facility] Last Admin: 06/24/24 21:00 Dose: 40 mg Documented By: LANETTEASY Hydromorphone HCl (Hydromorphone Hcl 1 Mg/Ml Syringe) 1 mg IVPUSH Q6H PRN; Protocol PRN Reason: Pain, Moderate(Pain Scale 4-6) Last Admin: 06/24/24 23:36 Dose: 1 mg Documented By: TUMASY Piperacillin Sod/Tazobactam (Sod 3.375 gm/ Sodium Chloride) 50 mls @ 100 mls/hr IV Q6H [facility] Last Infusion: 06/25/24 04:27 Dose: Infused Documented By: JULIO Magnesium Hydroxide (Milk Of Magnesia 30 Ml Oral.Susp) 30 ml PO DAILY PRN PRN Reason: Constipation Melatonin (Melatonin 3 Mg Tablet) 6 mg PO BEDTIME PRN PRN Reason: Insomnia Ondansetron HCl (Ondansetron Hcl 4 Mg/2 Ml Vial) 4 mg IVPUSH Q6H PRN PRN Reason: Nausea and Vomiting Sodium Chloride (0.9 % Sodium Chloride Flush 3 Ml Syringe) [facility] Last Admin: 06/24/24 23:36 Dose: 3 ml Documented By: JULIO Labs 06/24/24 09:02 06/23/24 12:59 Labs: Laboratory Results - last 24 hr 06/24/24 09:02 MCV 79.9 L MCH 26.8 L MCHC 33.6 RDW 13.5 Plt Count 226 MPV 9.7 Immature Gran % (Auto) 0.6 H Neut % (Auto) 86.7 H Lymph % (Auto) 6.1 L [place] % (Auto) 6.1 Eos % (Auto) 0.3 Baso % (Auto) 0.2 Lymph # (Auto) 0.9 L [place] # (Auto) 0.9 Eos # (Auto) 0.0 Baso # (Auto) 0.0 Abs Immat Gran (auto) 0.08 H Absolute Neuts (auto) 12.6 H Absolute Nucleated RBC 0.000 Nucleated RBC % (auto) 0.0 Procedures Date of Service Date of Service: 06/25/24 Progress Note: A&P Assessment and plan (1) Diverticulitis: Status: Acute (2) Perforation bowel: Status: Acute Plan Overall patient is improved with decreased abdominal pain and a small bowel movement. Recommend continuing IV antibiotics. He may advance to a full liquid diet. Would anticipate conversion to oral antibiotics in the next 1-2 days and eventual elective sigmoid colectomy in 1-2 months. Patient expressed understanding and agrees with the plan. Time Spent With Patient Time: Total time managing care of this patient today ____ minutes. Quality Stroke Does the patient have a stroke diagnosis?: No VTE Prior VTE?: No VTE Risk Level:: Medical - moderate - high VTE Device Contraindication: N/A - Device Ordered VTE Drug Contraindication: N/A - Med Ordered
[2024-06-25] MEDS: HYDROmorphone HCl 1 MG/ML SYRINGE IVPUSH ×2 (08:41→21:04)
[2024-06-25] MEDS: 0.9 % Sodium Chloride Flush 3 ML SYRINGE IVFLUSH ×2 (08:51→16:01)
--- NOTE | 2024-06-25 09:07 | HO.PM.IMPN ---
Subjective Subjective Date of Service: 06/25/24 Interval History: reporting 10 pain this morning with liquid diet Physical Exam Vital Signs: Vital Signs: Last Vital Signs Temp 96.9 F 06/25/24 08:00 Pulse 86 06/25/24 08:00 Resp 16 06/25/24 08:00 BP 142/77 H 06/25/24 08:00 Pulse Ox 100 06/25/24 08:00 O2 Del Method Room Air 06/25/24 08:00 O2 Flow Rate 99 06/24/24 20:00 BMI result Body Mass Index 37.4 General: AO X 3, no acute distress Resp: CTA bilateral CVS: S1,S2,RRR GI: +BS, NT, no distention Skin: No rash Neuro: motor grossly intact Psych: appropriate affect Objective Data Active Medications Acetaminophen (Acetaminophen 325 Mg Tablet) 650 mg PO Q6H PRN PRN Reason: Pain, Mild (Pain Scale 1-3), fever or headache Last Admin: 06/24/24 22:39 Dose: 650 mg Documented By: JULIO Acetaminophen (Acetaminophen 325 Mg Tablet) 975 mg PO Q6H PRN PRN Reason: Pain, Moderate(Pain Scale 4-6) Calcium Carbonate (Calcium Carbonate 750 Mg Tab.Chew) 750 mg PO Q4H PRN PRN Reason: Heartburn Enoxaparin Sodium (Enoxaparin Sodium 40 Mg/0.4 Ml Syringe) 40 mg SUBCUT Q24H [facility] Last Admin: 06/24/24 21:00 Dose: 40 mg Documented By: JULIO Hydromorphone HCl (Hydromorphone Hcl 1 Mg/Ml Syringe) 1 mg IVPUSH Q6H PRN; Protocol PRN Reason: Pain, Moderate(Pain Scale 4-6) Last Admin: 06/25/24 08:41 Dose: 1 mg Documented By: MIRI Piperacillin Sod/Tazobactam (Sod 3.375 gm/ Sodium Chloride) 50 mls @ 100 mls/hr IV Q6H [facility] Last Admin: 06/25/24 08:41 Dose: 100 mls/hr Documented By: MIRI Magnesium Hydroxide (Milk Of Magnesia 30 Ml Oral.Susp) 30 ml PO DAILY PRN PRN Reason: Constipation Melatonin (Melatonin 3 Mg Tablet) 6 mg PO BEDTIME PRN PRN Reason: Insomnia Ondansetron HCl (Ondansetron Hcl 4 Mg/2 Ml Vial) 4 mg IVPUSH Q6H PRN PRN Reason: Nausea and Vomiting Sodium Chloride (0.9 % Sodium Chloride Flush 3 Ml Syringe) 3 ml IVFLUSH QSHIFT [facility] Last Admin: 06/25/24 08:51 Dose: 3 ml Documented By: MIRI Labs 06/24/24 09:02 06/23/24 12:59 Labs: Laboratory Results - last 24 hr 06/24/24 09:02 MCV 79.9 L MCH 26.8 L MCHC 33.6 RDW 13.5 Plt Count 226 MPV 9.7 Immature Gran % (Auto) 0.6 H Neut % (Auto) 86.7 H Lymph % (Auto) 6.1 L [place] % (Auto) 6.1 Eos % (Auto) 0.3 Baso % (Auto) 0.2 Lymph # (Auto) 0.9 L [place] # (Auto) 0.9 Eos # (Auto) 0.0 Baso # (Auto) 0.0 Abs Immat Gran (auto) 0.08 H Absolute Neuts (auto) 12.6 H Absolute Nucleated RBC 0.000 Nucleated RBC % (auto) 0.0 Assessment and Plan (1) Diverticulitis: Status: Acute Assessment and Plan: 33 y/o M with hx history significant obesity, elevated blood pressure readings, nonalcoholic fatty liver disease-came to ed with abdominal pain-admitted for acute diverticulitis . sepsis sec to acute diverticulitis Sepsis resolved still with pain, advance diet slowly continue Zosyn, augmentin at dc elevated blood pressure readings : moniter bp . dvt prophylax: s/c lovenox Iv abx for complicated diverticultis Quality Stroke Does the patient have a stroke diagnosis?: No VTE Prior VTE?: No VTE Risk Level:: Medical - moderate - high VTE Device Contraindication: N/A - Device Ordered VTE Drug Contraindication: N/A - Med Ordered
[2024-06-25] MEDS: Acetaminophen 325 MG TABLET 975 MG PO (12:55)
[2024-06-25 15:08] VITALS: BP 145/81; PULSE 82; RESP 20; TEMP 36; O2SAT 99
[2024-06-25 19:48] VITALS: BP 146/96; PULSE 85; RESP 20; TEMP 37; O2SAT 98
[2024-06-25] MEDS: Enoxaparin Sodium 40 MG/0.4 ML SYRINGE SUBCUT (20:57)
[2024-06-25] MEDS: Melatonin 3 MG TABLET 6 MG PO (21:05)
[2024-06-25 23:35] VITALS: BP 140/84; PULSE 83; RESP 16; TEMP 36.5; O2SAT 99
[2024-06-26] VITALS (12 sets, daily range): BP systolic 133–177; BP diastolic 75–99; PULSE 57–76; RESP 16–18; TEMP 36.1–37.2; O2SAT 99–100
[2024-06-26] MEDS: Piperacillin Sodium/Tazobactam 3.375 GM in 0.9 % Sodium Chloride 50 ML IV ×3 (03:20→19:50)
[2024-06-26] MEDS: 0.9 % Sodium Chloride Flush 3 ML SYRINGE IVFLUSH ×3 (03:22→17:35)
[2024-06-26] MEDS: HYDROmorphone HCl 1 MG/ML SYRINGE IVPUSH ×2 (03:25→17:34)
--- NOTE | 2024-06-26 08:16 | PM.PNGS ---
Subjective Subjective Date of Service: 06/26/24 Interval history: Patient reporting increased abdominal pain, decreased appetite. Pain mainly in the left lower quadrant. Physical Exam Vital Signs: Vital Signs: Last Vital Signs Temp 97.6 F 06/26/24 07:53 Pulse 70 06/26/24 07:53 Resp 18 06/26/24 07:53 BP 133/76 06/26/24 07:53 Pulse Ox 100 06/26/24 07:53 O2 Del Method Room Air 06/26/24 07:53 O2 Flow Rate 99 06/24/24 20:00 BMI result Body Mass Index 37.4 Const: General: alert and tired appearing Nutritional Appearance: well nourished Orientation/consciousness: patient oriented x3 Resp: Effort & Inspection: normal respiratory effort, no audible wheezes, no cough and no respiratory distress GI: Palpation (GI): Soft to palpation, Tenderness to palpation present (GI) in the LLQ, no guarding and not rigid Skin: General skin exam: no rashes or lesions noted Neuro: General: patient oriented x3 Extrem: General: Yes no clubbing, cyanosis or edema Objective Data Active Medications Acetaminophen (Acetaminophen 325 Mg Tablet) 650 mg PO Q6H PRN PRN Reason: Pain, Mild (Pain Scale 1-3), fever or headache Last Admin: 06/24/24 22:39 Dose: 650 mg Documented By: JULIO Acetaminophen (Acetaminophen 325 Mg Tablet) 975 mg PO Q6H PRN PRN Reason: Pain, Moderate(Pain Scale 4-6) Last Admin: 06/25/24 12:55 Dose: 975 mg Documented By: MIRI Calcium Carbonate (Calcium Carbonate 750 Mg Tab.Chew) 750 mg PO Q4H PRN PRN Reason: Heartburn Enoxaparin Sodium (Enoxaparin Sodium 40 Mg/0.4 Ml Syringe) 40 mg SUBCUT Q24H [facility] Last Admin: 06/25/24 20:57 Dose: 40 mg Documented By: KAYE Hydromorphone HCl (Hydromorphone Hcl 1 Mg/Ml Syringe) 1 mg IVPUSH Q6H PRN; Protocol PRN Reason: Pain, Moderate(Pain Scale 4-6) Last Admin: 06/26/24 03:25 Dose: 1 mg Documented By: KAYE Piperacillin Sod/Tazobactam (Sod 3.375 gm/ Sodium Chloride) 50 mls @ 100 mls/hr IV Q6H [facility] Last Infusion: 06/26/24 03:50 Dose: Infused Documented By: KAYE Magnesium Hydroxide (Milk Of Magnesia 30 Ml Oral.Susp) 30 ml PO DAILY PRN PRN Reason: Constipation Melatonin (Melatonin 3 Mg Tablet) 6 mg PO BEDTIME PRN PRN Reason: Insomnia Last Admin: 06/25/24 21:05 Dose: 6 mg Documented By: KAYE Ondansetron HCl (Ondansetron Hcl 4 Mg/2 Ml Vial) 4 mg IVPUSH Q6H PRN PRN Reason: Nausea and Vomiting Sodium Chloride (0.9 % Sodium Chloride Flush 3 Ml Syringe) 3 ml IVFLUSH QSHIFT [facility] Last Admin: 06/26/24 07:40 Dose: 3 ml Documented By: GAIL Labs 06/24/24 09:02 06/23/24 12:59 Procedures Date of Service Date of Service: 06/26/24 Progress Note: A&P Assessment and plan (1) Diverticulitis: Status: Acute (2) Perforation bowel: Status: Acute Plan 33 year old male presenting with perforated sigmoid diverticulitis, was initially doing well but now notes increased abdominal pain in the left lower quadrant. Appetite is poor Will check CBC Ordered stat CT AP with contrast. If increased air, may need Kassy's procedure. Time Spent With Patient Time: Total time managing care of this patient today ____ minutes. Quality Stroke Does the patient have a stroke diagnosis?: No VTE Prior VTE?: No VTE Risk Level:: Medical - moderate - high VTE Device Contraindication: N/A - Device Ordered VTE Drug Contraindication: N/A - Med Ordered
--- NOTE | 2024-06-26 09:16 | HO.PM.IMPN ---
Subjective Subjective Date of Service: 06/26/24 Interval History: Having severe pain this morning not able to eat Physical Exam Vital Signs: Vital Signs: Last Vital Signs Temp 97.6 F 06/26/24 07:53 Pulse 70 06/26/24 07:53 Resp 18 06/26/24 07:53 BP 133/76 06/26/24 07:53 Pulse Ox 100 06/26/24 07:53 O2 Del Method Room Air 06/26/24 07:53 O2 Flow Rate 99 06/24/24 20:00 BMI result Body Mass Index 37.4 General: AO X 3, no acute distress Resp: CTA bilateral CVS: S1,S2,RRR GI: +BS, lower abd tenderness, soft, nd Skin: No rash Neuro: motor grossly intact Psych: appropriate affect Objective Data Active Medications Acetaminophen (Acetaminophen 325 Mg Tablet) 650 mg PO Q6H PRN PRN Reason: Pain, Mild (Pain Scale 1-3), fever or headache Last Admin: 06/24/24 22:39 Dose: 650 mg Documented By: JULIO Acetaminophen (Acetaminophen 325 Mg Tablet) 975 mg PO Q6H PRN PRN Reason: Pain, Moderate(Pain Scale 4-6) Last Admin: 06/25/24 12:55 Dose: 975 mg Documented By: MIRI Calcium Carbonate (Calcium Carbonate 750 Mg Tab.Chew) 750 mg PO Q4H PRN PRN Reason: Heartburn Enoxaparin Sodium (Enoxaparin Sodium 40 Mg/0.4 Ml Syringe) 40 mg SUBCUT Q24H [facility] Last Admin: 06/25/24 20:57 Dose: 40 mg Documented By: KAYE Hydromorphone HCl (Hydromorphone Hcl 1 Mg/Ml Syringe) 1 mg IVPUSH Q6H PRN; Protocol PRN Reason: Pain, Moderate(Pain Scale 4-6) Last Admin: 06/26/24 03:25 Dose: 1 mg Documented By: KAYE Piperacillin Sod/Tazobactam (Sod 3.375 gm/ Sodium Chloride) 50 mls @ 100 mls/hr IV Q6H [facility] Last Infusion: 06/26/24 03:50 Dose: Infused Documented By: KAYE Magnesium Hydroxide (Milk Of Magnesia 30 Ml Oral.Susp) 30 ml PO DAILY PRN PRN Reason: Constipation Melatonin (Melatonin 3 Mg Tablet) 6 mg PO BEDTIME PRN PRN Reason: Insomnia Last Admin: 06/25/24 21:05 Dose: 6 mg Documented By: KAYE Ondansetron HCl (Ondansetron Hcl 4 Mg/2 Ml Vial) 4 mg IVPUSH Q6H PRN PRN Reason: Nausea and Vomiting Sodium Chloride (0.9 % Sodium Chloride Flush 3 Ml Syringe) 3 ml IVFLUSH QSHIFT [facility] Last Admin: 06/26/24 07:40 Dose: 3 ml Documented By: GAIL Labs 06/24/24 09:02 06/23/24 12:59 Assessment and Plan (1) Diverticulitis: Status: Acute Assessment and Plan: 33 y/o M with hx history significant obesity, elevated blood pressure readings, nonalcoholic fatty liver disease-came to ed with abdominal pain-admitted for acute diverticulitis . sepsis sec to acute diverticulitis Sepsis resolved Persistent pain advance diet slowly continue Zosyn, augmentin at dc repeat CT Surgery following check cbc, bmp elevated blood pressure readings : presently nl dvt prophylax: s/c lovenox Iv abx for complicated diverticultis Quality Stroke Does the patient have a stroke diagnosis?: No VTE Prior VTE?: No VTE Risk Level:: Medical - moderate - high VTE Device Contraindication: N/A - Device Ordered VTE Drug Contraindication: N/A - Med Ordered
[2024-06-26] MEDS: Acetaminophen 325 MG TABLET 650 MG PO (09:28)
[2024-06-26 10:16] LABS: MANUAL DIFF FLAG NO
[2024-06-26 10:21] LABS: Basophils Absolute Auto 0.1 X10*3/uL (0.0-0.2); Basophils Percent Auto 0.6 % (0-2); Eosinophils Absolute Auto 0.2 X10*3/uL (0.0-0.4); Eosinophils Percent Auto 1.9 % (0-4); Hematocrit 34.9 % (42.0-52.0); Hemoglobin 11.7 g/dl (14.0-18.0); Imm Gran Abs Auto 0.06 X10*3/uL (0.00-0.03); Imm Gran Pct Auto 0.6 % (0.0-0.4); Lymphocytes Absolute Auto 1.3 X10*3/uL (1.2-4.9); Lymphocytes Percent Auto 12.6 % (20-40); Mean Corpuscular HGB Conc 33.5 g/dl (31.0-36.0); Mean Corpuscular Hemoglobin 26.5 pg (27.0-33.0); Mean Corpuscular Volume 79.1 fL (80.0-98.0); Mean Platelet Volume 9.4 fL (9.4-12.4); Monocytes Percent Auto 9.5 % (2-11); Neutrophils Absolute Auto 7.8 x10*3/uL (2.0-8.3); Neutrophils Percent Auto 74.8 % (45-73); Platelet Count 311 X10*3/uL (160-400); Red Blood Count 4.41 X10*6/uL (4.60-5.80); Red Cell Distribution Width 13.4 % (11.0-16.0); White Blood Count 10.4 X10*3/uL (4.8-10.8)
[2024-06-26 11:06] LABS: Anion Gap 15 (12-20); Blood Urea Nitrogen 8 mg/dL (9-16); Calcium 9.1 mg/dL (8.4-10.2); Carbon Dioxide 27 mmol/L (22-29); Chloride 104 mmol/L (96-108); Creatinine Clr Calc Pharmacy 135.9; Estimated Glomerular Filt Rate > 60; Glucose Random 100 mg/dL (60-115); Potassium 2.8 mmol/L (3.3-5.1); Sodium 143 mmol/L (135-145)
--- NOTE | 2024-06-26 11:13 | P.CONAN_ITS ---
[facility] Active Problems Active Problems: All Active Problems Diverticulitis (Acute) Perforation bowel (Acute) Borderline high cholesterol (Acute) HTN (hypertension) (Acute) Elevated blood pressure reading in office with diagnosis of hypertension (Acute) Annual physical exam (Acute) Screening for hypercholesterolemia (Acute) Screening for hypothyroidism (Acute) Screening for diabetes mellitus (DM) (Acute) Obese (Acute) Past Medical History Medical History (Reviewed 06/26/24 @ : by Shawna Rose MD) Fatty liver disease, nonalcoholic Functional capacity: independent ambulation Family History Family History (Reviewed 06/26/24 @ : by Shawna Rose MD) Father Diabetes Mother No problems noted. Family history of problems with anesthesia: No Surgical History Surgical History (Reviewed 06/26/24 @ : by Shawna Rose MD) No pertinent past surgical history History of Problems with Anesthesia: No Social History Social History (Reviewed 06/26/24 @ :24 by Shawna Rose MD) Household Members: Other Household Members Other:: mom Housing: Apartment Housing Other:: living with parents Do you presently have visiting nurse or other home services: No Alcohol intake: former Patient Tobacco Use Status: Never used Tobacco e-Cigarette/Vaping Use: Never Used service: No Current occupational status: disabled Cognitive needs: No Hearing needs: No Vision needs: Yes Meds Allergies Allergy/AdvReac Type Severity Reaction Status Date / Time No Known Allergies Allergy Verified 06/22/24 11:29 [No Known Allergies*] Active Medications: Current Medications Acetaminophen (Acetaminophen 325 Mg Tablet) 650 mg PO Q6H PRN PRN Reason: Pain, Mild (Pain Scale 1-3), fever or headache Last Admin: 06/26/24 09:28 Dose: 650 mg Acetaminophen (Acetaminophen 325 Mg Tablet) 975 mg PO Q6H PRN PRN Reason: Pain, Moderate(Pain Scale 4-6) Last Admin: 06/25/24 12:55 Dose: 975 mg Calcium Carbonate (Calcium Carbonate 750 Mg Tab.Chew) 750 mg PO Q4H PRN PRN Reason: Heartburn Enoxaparin Sodium (Enoxaparin Sodium 40 Mg/0.4 Ml Syringe) 40 mg SUBCUT Q24H [facility]HELITA Last Admin: 06/25/24 20:57 Dose: 40 mg Hydromorphone HCl (Hydromorphone Hcl 1 Mg/Ml Syringe) 1 mg IVPUSH Q4H PRN; Protocol PRN Reason: Pain, Severe (Pain Scale 7-10) Piperacillin Sod/Tazobactam (Sod 3.375 gm/ Sodium Chloride) 50 mls @ 100 mls/hr IV Q6H [facility] Last Infusion: 06/26/24 09:51 Dose: Infused Lactated Ringer's (Lr) 1,000 mls @ 100 mls/hr IVCONT .Q10H [facility] Magnesium Hydroxide (Milk Of Magnesia 30 Ml Oral.Susp) 30 ml PO DAILY PRN PRN Reason: Constipation Melatonin (Melatonin 3 Mg Tablet) 6 mg PO BEDTIME PRN PRN Reason: Insomnia Last Admin: 06/25/24 21:05 Dose: 6 mg Ondansetron HCl (Ondansetron Hcl 4 Mg/2 Ml Vial) 4 mg IVPUSH Q6H PRN PRN Reason: Nausea and Vomiting Sodium Chloride (0.9 % Sodium Chloride Flush 3 Ml Syringe) [address] [facility] Last Admin: 06/26/24 07:40 Dose: 3 ml Home Medications ?Medication ?Instructions ?Recorded ?Confirmed ?Last Taken ?Type acetaminophen 325 mg tablet 650 mg PO Q6H PRN Pain 06/22/24 06/22/24 Unknown History (Tylenol) Exam Height,Weight and Vital Signs: Height 5 ft 7 in Weight 108.273 kg Last Vital Signs Temp 97.6 F 06/26/24 07:53 Pulse 70 06/26/24 07:53 Resp 18 06/26/24 07:53 BP 133/76 06/26/24 07:53 Pulse Ox 100 06/26/24 07:53 O2 Del Method Room Air 06/26/24 07:53 O2 Flow Rate 99 06/24/24 20:00 Pertinent Lab Results Pertinent Lab Results: Laboratory Tests 06/22/24 06/22/24 06/22/24 11:55 12:19 13:16 WBC 9.1 RBC 5.37 Hgb 14.6 Hct 43.1 MCV 80.3 MCH 27.2 MCHC 33.9 RDW 13.9 Plt Count 240 MPV 10.0 Immature Gran % (Auto) 0.3 Neut % (Auto) 74.9 H Lymph % (Auto) 16.4 L [place] % (Auto) 5.0 Eos % (Auto) 2.8 Baso % (Auto) 0.6 Lymph # (Auto) 1.5 [place] # (Auto) 0.5 Eos # (Auto) 0.3 Baso # (Auto) 0.1 Abs Immat Gran (auto) 0.03 Absolute Neuts (auto) 6.8 Absolute Nucleated RBC 0.000 Nucleated RBC % (auto) 0.0 Sodium 140 Potassium 3.1 L Chloride 107 Carbon Dioxide 21 L Anion Gap 15 BUN 12 Creatinine 1.03 Estim Creat Clear Calc 117.4 Estimated GFR > 60 Random Glucose 160 H Lactic Acid Calcium 9.4 Magnesium 2.0 Total Bilirubin 0.5 AST 11 ALT 13 Alkaline Phosphatase 62 Total Protein 7.2 Albumin 4.1 Urine Color Yellow Urine Appearance Clear Urine pH 5.5 Ur Specific [place] >= 1.030 H Urine Protein Trace Urine Glucose (UA) Negative Urine Ketones 15 Urine Blood Negative Urine Nitrite Negative Ur Leukocyte Esterase Negative Influenza Type A (PCR) NEGATIVE Influenza Type B (PCR) NEGATIVE RSV RNA Qual (PCR) NEGATIVE SARS-CoV-2 RNA (RT-PCR) NEGATIVE 06/22/24 06/23/24 06/23/24 21:34 05:56 12:59 WBC 16.8 H 15.1 H RBC 5.05 4.48 L Hgb 13.8 L 12.2 L Hct 41.8 L 36.2 L MCV 82.8 80.8 MCH 27.3 27.2 MCHC 33.0 33.7 RDW 13.9 13.7 Plt Count 265 220 MPV 10.4 9.4 Immature Gran % (Auto) 1.1 H Neut % (Auto) 85.9 H Lymph % (Auto) 5.9 L [place] % (Auto) 6.6 Eos % (Auto) 0.1 Baso % (Auto) 0.4 Lymph # (Auto) 1.0 L [place] # (Auto) 1.1 Eos # (Auto) 0.0 Baso # (Auto) 0.1 Abs Immat Gran (auto) 0.19 H Absolute Neuts (auto) 14.5 H Absolute Nucleated RBC 0.000 0.000 Nucleated RBC % (auto) 0.0 0.0 Sodium 138 Potassium 3.1 L Chloride 104 Carbon Dioxide 23 Anion Gap 14 BUN 10 Creatinine 1.10 Estim Creat Clear Calc 109.9 Estimated GFR > 60 Random Glucose 127 H Lactic Acid 1.2 Calcium 8.8 D Magnesium Total Bilirubin AST ALT Alkaline Phosphatase Total Protein Albumin Urine Color Urine Appearance Urine pH Ur Specific [place] Urine Protein Urine Glucose (UA) Urine Ketones Urine Blood Urine Nitrite Ur Leukocyte Esterase Influenza Type A (PCR) Influenza Type B (PCR) RSV RNA Qual (PCR) SARS-CoV-2 RNA (RT-PCR) 06/24/24 06/26/24 09:02 09:58 WBC 14.5 H 10.4 RBC 4.62 4.41 L Hgb 12.4 L 11.7 L Hct 36.9 L 34.9 L MCV 79.9 L 79.1 L MCH 26.8 L 26.5 L MCHC 33.6 33.5 RDW 13.5 13.4 Plt Count 226 311 D MPV 9.7 9.4 Immature Gran % (Auto) 0.6 H 0.6 H Neut % (Auto) 86.7 H 74.8 H Lymph % (Auto) 6.1 L 12.6 L [place] % (Auto) 6.1 9.5 Eos % (Auto) 0.3 1.9 Baso % (Auto) 0.2 0.6 Lymph # (Auto) 0.9 L 1.3 Emanuel # (Auto) 0.9 1.0 Eos # (Auto) 0.0 0.2 Baso # (Auto) 0.0 0.1 Abs Immat Gran (auto) 0.08 H 0.06 H Absolute Neuts (auto) 12.6 H 7.8 Absolute Nucleated RBC 0.000 0.000 Nucleated RBC % (auto) 0.0 0.0 Sodium 143 Potassium 2.8 L* Chloride 104 Carbon Dioxide 27 Anion Gap 15 BUN 8 L Creatinine 0.89 Estim Creat Clear Calc 135.9 Estimated GFR > 60 Random Glucose 100 Lactic Acid Calcium 9.1 Magnesium Total Bilirubin AST ALT Alkaline Phosphatase Total Protein Albumin Urine Color Urine Appearance Urine pH Ur Specific [place] Urine Protein Urine Glucose (UA) Urine Ketones Urine Blood Urine Nitrite Ur Leukocyte Esterase Influenza Type A (PCR) Influenza Type B (PCR) RSV RNA Qual (PCR) SARS-CoV-2 RNA (RT-PCR) Airway Mallampati Class: III TM Dist: >3cm Neck ROM: Full Heart: RRR Lungs: CTA Assessment and Plan Assessment Anesthesia Assessment: Anesthesia Plan Discussed and Chart Reviewed Final Anesthetic Review Family History of Problems with Anesthesia: No History of Problems with Anesthesia: No NPO: Yes ASA Class: III and Emergency Final Preanesthetic Review: Meds/Allgs Chart Reviewed, Consent Obtained/Reviewed and Anes Risks/Benef Reviewed Patient Risk: Intermediate Procedure Risk: Intermediate Anesthetic Plan Anesthetic Plan: GA (bilateral TAP block) Disposition: Standard PACU
--- NOTE | 2024-06-26 11:22 | ECG_ITS ---
Test Reason : HIGH POTTASIUM Blood Pressure : / mmHG Vent. Rate : 079 BPM Atrial Rate : 079 BPM P-R Int : 144 ms QRS Dur : 080 ms QT Int : 374 ms P-R-T Axes : 064 047 029 degrees QTc Int : 428 ms Normal sinus rhythm with sinus arrhythmia Normal ECG No previous ECGs available Referred By: Shawna Rose Electronically Signed By:BIJAL KEN
--- NOTE | 2024-06-26 11:26 | PC.NURSE ---
Patient off the floor to surg. Pre op Nurse updated of vega Olmos.
--- NOTE | 2024-06-26 11:26 | HO.ANESPROP2 ---
[facility] Active Problems Active Problems: All Active Problems Diverticulitis (Acute) Perforation bowel (Acute) Borderline high cholesterol (Acute) HTN (hypertension) (Acute) Elevated blood pressure reading in office with diagnosis of hypertension (Acute) Annual physical exam (Acute) Screening for hypercholesterolemia (Acute) Screening for hypothyroidism (Acute) Screening for diabetes mellitus (DM) (Acute) Obese (Acute) Past Medical History Medical History (Reviewed 06/26/24 @ : by Shawna Rose MD) Fatty liver disease, nonalcoholic Functional capacity: independent ambulation Family History Family History (Reviewed 06/26/24 @ : by Shawna Rose MD) Father Diabetes Mother No problems noted. Family history of problems with anesthesia: No Surgical History Surgical History (Reviewed 06/26/24 @ : by Shawna Rose MD) No pertinent past surgical history History of Problems with Anesthesia: No Social History Social History (Reviewed 06/26/24 @ :24 by Shawna Rose MD) Household Members: Other Household Members Other:: mom Housing: Apartment Housing Other:: living with parents Do you presently have visiting nurse or other home services: No Alcohol intake: former Patient Tobacco Use Status: Never used Tobacco e-Cigarette/Vaping Use: Never Used service: No Current occupational status: disabled Cognitive needs: No Hearing needs: No Vision needs: Yes Meds Allergies Allergy/AdvReac Type Severity Reaction Status Date / Time No Known Allergies Allergy Verified 06/22/24 11:29 [No Known Allergies*] Active Medications: Current Medications Acetaminophen (Acetaminophen 325 Mg Tablet) 650 mg PO Q6H PRN PRN Reason: Pain, Mild (Pain Scale 1-3), fever or headache Last Admin: 06/26/24 09:28 Dose: 650 mg Acetaminophen (Acetaminophen 325 Mg Tablet) 975 mg PO Q6H PRN PRN Reason: Pain, Moderate(Pain Scale 4-6) Last Admin: 06/25/24 12:55 Dose: 975 mg Calcium Carbonate (Calcium Carbonate 750 Mg Tab.Chew) 750 mg PO Q4H PRN PRN Reason: Heartburn Enoxaparin Sodium (Enoxaparin Sodium 40 Mg/0.4 Ml Syringe) 40 mg SUBCUT Q24H [facility]HEL[facility] Last Admin: 06/25/24 20:57 Dose: 40 mg Hydromorphone HCl (Hydromorphone Hcl 1 Mg/Ml Syringe) 1 mg IVPUSH Q4H PRN; Protocol PRN Reason: Pain, Severe (Pain Scale 7-10) Piperacillin Sod/Tazobactam (Sod 3.375 gm/ Sodium Chloride) 50 mls @ 100 mls/hr IV Q6H [facility] Last Infusion: 06/26/24 09:51 Dose: Infused Lactated Ringer's (Lr) 1,000 mls @ 100 mls/hr IVCONT .Q10H [facility] Potassium Chloride (Potassium Chloride/H20) 10 meq in 100 mls @ 100 mls/hr IV Q1H [facility] Stop: 06/26/24 13:20 Magnesium Hydroxide (Milk Of Magnesia 30 Ml Oral.Susp) 30 ml PO DAILY PRN PRN Reason: Constipation Melatonin (Melatonin 3 Mg Tablet) 6 mg PO BEDTIME PRN PRN Reason: Insomnia Last Admin: 06/25/24 21:05 Dose: 6 mg Ondansetron HCl (Ondansetron Hcl 4 Mg/2 Ml Vial) 4 mg IVPUSH Q6H PRN PRN Reason: Nausea and Vomiting Sodium Chloride (0.9 % Sodium Chloride Flush 3 Ml Syringe) 3 ml IVFLUSH QSHIFT [facility] Last Admin: 06/26/24 07:40 Dose: 3 ml Home Medications ?Medication ?Instructions ?Recorded ?Confirmed ?Last Taken ?Type acetaminophen 325 mg tablet 650 mg PO Q6H PRN Pain 06/22/24 06/22/24 Unknown History (Tylenol) Exam Height,Weight and Vital Signs: Height 5 ft 7 in Weight 108.273 kg Last Vital Signs Temp 97.6 F 06/26/24 07:53 Pulse 70 06/26/24 07:53 Resp 18 06/26/24 07:53 BP 133/76 06/26/24 07:53 Pulse Ox 100 06/26/24 07:53 O2 Del Method Room Air 06/26/24 07:53 O2 Flow Rate 99 06/24/24 20:00 Pertinent Lab Results Pertinent Lab Results: Laboratory Tests 06/22/24 06/22/24 06/22/24 11:55 12:19 13:16 WBC 9.1 RBC 5.37 Hgb 14.6 Hct 43.1 MCV 80.3 MCH 27.2 MCHC 33.9 RDW 13.9 Plt Count 240 MPV 10.0 Immature Gran % (Auto) 0.3 Neut % (Auto) 74.9 H Lymph % (Auto) 16.4 L [place] % (Auto) 5.0 Eos % (Auto) 2.8 Baso % (Auto) 0.6 Lymph # (Auto) 1.5 [place] # (Auto) 0.5 Eos # (Auto) 0.3 Baso # (Auto) 0.1 Abs Immat Gran (auto) 0.03 Absolute Neuts (auto) 6.8 Absolute Nucleated RBC 0.000 Nucleated RBC % (auto) 0.0 Sodium 140 Potassium 3.1 L Chloride 107 Carbon Dioxide 21 L Anion Gap 15 BUN 12 Creatinine 1.03 Estim Creat Clear Calc 117.4 Estimated GFR > 60 Random Glucose 160 H Lactic Acid Calcium 9.4 Magnesium 2.0 Total Bilirubin 0.5 AST 11 ALT 13 Alkaline Phosphatase 62 Total Protein 7.2 Albumin 4.1 Urine Color Yellow Urine Appearance Clear Urine pH 5.5 Ur Specific [place] >= 1.030 H Urine Protein Trace Urine Glucose (UA) Negative Urine Ketones 15 Urine Blood Negative Urine Nitrite Negative Ur Leukocyte Esterase Negative Influenza Type A (PCR) NEGATIVE Influenza Type B (PCR) NEGATIVE RSV RNA Qual (PCR) NEGATIVE SARS-CoV-2 RNA (RT-PCR) NEGATIVE 06/22/24 06/23/24 06/23/24 21:34 05:56 12:59 WBC 16.8 H 15.1 H RBC 5.05 4.48 L Hgb 13.8 L 12.2 L Hct 41.8 L 36.2 L MCV 82.8 80.8 MCH 27.3 27.2 MCHC 33.0 33.7 RDW 13.9 13.7 Plt Count 265 220 MPV 10.4 9.4 Immature Gran % (Auto) 1.1 H Neut % (Auto) 85.9 H Lymph % (Auto) 5.9 L [place] % (Auto) 6.6 Eos % (Auto) 0.1 Baso % (Auto) 0.4 Lymph # (Auto) 1.0 L [place] # (Auto) 1.1 Eos # (Auto) 0.0 Baso # (Auto) 0.1 Abs Immat Gran (auto) 0.19 H Absolute Neuts (auto) 14.5 H Absolute Nucleated RBC 0.000 0.000 Nucleated RBC % (auto) 0.0 0.0 Sodium 138 Potassium 3.1 L Chloride 104 Carbon Dioxide 23 Anion Gap 14 BUN 10 Creatinine 1.10 Estim Creat Clear Calc 109.9 Estimated GFR > 60 Random Glucose 127 H Lactic Acid 1.2 Calcium 8.8 D Magnesium Total Bilirubin AST ALT Alkaline Phosphatase Total Protein Albumin Urine Color Urine Appearance Urine pH Ur Specific [place] Urine Protein Urine Glucose (UA) Urine Ketones Urine Blood Urine Nitrite Ur Leukocyte Esterase Influenza Type A (PCR) Influenza Type B (PCR) RSV RNA Qual (PCR) SARS-CoV-2 RNA (RT-PCR) 06/24/24 06/26/24 09:02 09:58 WBC 14.5 H 10.4 RBC 4.62 4.41 L Hgb 12.4 L 11.7 L Hct 36.9 L 34.9 L MCV 79.9 L 79.1 L MCH 26.8 L 26.5 L MCHC 33.6 33.5 RDW 13.5 13.4 Plt Count 226 311 D MPV 9.7 9.4 Immature Gran % (Auto) 0.6 H 0.6 H Neut % (Auto) 86.7 H 74.8 H Lymph % (Auto) 6.1 L 12.6 L [place] % (Auto) 6.1 9.5 Eos % (Auto) 0.3 1.9 Baso % (Auto) 0.2 0.6 Lymph # (Auto) 0.9 L 1.3 [place] # (Auto) 0.9 1.0 Eos # (Auto) 0.0 0.2 Baso # (Auto) 0.0 0.1 Abs Immat Gran (auto) 0.08 H 0.06 H Absolute Neuts (auto) 12.6 H 7.8 Absolute Nucleated RBC 0.000 0.000 Nucleated RBC % (auto) 0.0 0.0 Sodium 143 Potassium 2.8 L* Chloride 104 Carbon Dioxide 27 Anion Gap 15 BUN 8 L Creatinine 0.89 Estim Creat Clear Calc 135.9 Estimated GFR > 60 Random Glucose 100 Lactic Acid Calcium 9.1 Magnesium Total Bilirubin AST ALT Alkaline Phosphatase Total Protein Albumin Urine Color Urine Appearance Urine pH Ur Specific [place] Urine Protein Urine Glucose (UA) Urine Ketones Urine Blood Urine Nitrite Ur Leukocyte Esterase Influenza Type A (PCR) Influenza Type B (PCR) RSV RNA Qual (PCR) SARS-CoV-2 RNA (RT-PCR) Airway Mallampati Class: III TM Dist: >3cm Neck ROM: Full Heart: RRR Lungs: CTA Assessment and Plan Assessment Anesthesia Assessment: Anesthesia Plan Discussed and Chart Reviewed Final Anesthetic Review Family History of Problems with Anesthesia: No History of Problems with Anesthesia: No NPO: Yes ASA Class: III and Emergency Final Preanesthetic Review: Meds/Allgs Chart Reviewed, Consent Obtained/Reviewed and Anes Risks/Benef Reviewed Patient Risk: Intermediate Procedure Risk: Intermediate Anesthetic Plan Anesthetic Plan: GA and Neuraxial Block: (bl.TAP block) Disposition: Standard PACU
[2024-06-26] MEDS: Lactated Ringers 1,000 ML 100 ML IVCONT (11:36)
[2024-06-26] MEDS: Potassium Chloride/H20 10 MEQ/100 ML PIGGYBACK 100 MEQ IV (11:47)
[2024-06-26 11:48] LABS: Magnesium 2.2 mg/dL (1.6-2.6)
--- NOTE | 2024-06-26 11:48 | HO.OSTOMY ---
Ostomy Consul: Site Marking 33yr old male admitted to [facility] [place] on 06/22/24 - see H&P for detailed history. Patient schedule for Hartmans procedure with Dr. Felder - site marking requested. Patient seen in Pre-op area for brief pre-operative ostomy teaching and stoma site selection/marking. ?The patient was instructed in very basic GI anatomy and stoma creation, and teaching to be available after surgery should a stoma be created. ?Instruction was given on the purpose of pre-operative stoma site selection and marking: ?the importance of identifying a location within sight, avoiding creases on a relatively flat area of the abdomen, and siting within the large muscle of the abdomen for support. ?He agreed with the procedure. The patient's abdomen was visualized and palpated in the sitting, bending, and lying positions. ?The margins of the rectus abdominis muscles were identified, and sites were marked in the RLQ and LLQ within the margins. ?The patients pant location was taken into consideration when marking. ?He has a horizontal crease at the umbilicus and he was marking accordingly - I also took into consideration a midline incision and marked accordingly for surgeon visibility in the OR. Note the patient was previously marked by Dr. Felder unfortunately the site rolled under the abdomen when sitting upright therefore he was marked higher within the same area. The sites were cleansed with alcohol prep pads before marking and marked with sterile surgical marker. ? Inpatient Ostomy Nurse will continue to follow patient for continued teaching post creation.
[2024-06-26] MEDS: iohexoL 350 MG/ML 75 ML INFUS..BTL 100 ML IV (11:56)
[2024-06-26 12:08] LABS: Glucose, Whole Blood 93 mg/dL (60-115)
--- NOTE | 2024-06-26 12:10 | PM.EVENT ---
Event Note Date of Service: 06/26/24 Event Note: CT scan reviewed - more extraluminal air around distal sigmoid pt seems to be quite tender on pelvis in view of worsening radiologic picture, significant tenderness, may be best to proceed with resection I explained the technique of hand assisted laparoscopic sigmoid resection, possible open, with stoma for perforated sigmoid diverticulitis No official read on the CT scan yet - talked to Radiology Department multiple times I reviewed the risks including but not limited to bleeding, infections, injury to other organs including urinary tract, staple line leak, blood clots, pneumonia, wound infections, as well as the benefits and alternatives He has given consent His mother and sister Shae were also involved during the discussion Correct potassium hypokalemia Time Spent With Patient Time: Total time managing care of this patient today ____ minutes.
--- NOTE | 2024-06-26 14:38 | MHC.CM.PN ---
Patient scheduled for OR today. The Wound nurse has consulted for Stoma placement. Patient will likely require home care services for Stoma/Ostomy education. No homecare preference noted. A referral has been sent to Patient will arrange for transport home.
--- NOTE | 2024-06-26 16:00 | P.OP_ITS ---
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 He was started on IV antibiotics. However, a follow-up CT scan today showed marked increase in the extraluminal air extending to the presacral space and the mesorectum and mesosigmoid. He also had worsening tenderness on lower abdomen. I explained to him that it was best to proceed with resection and colostomy. He understood the technique of the planned procedure as well as the risks, benefits, and alternatives He was brought to the operating room. He was placed in modified lithotomy pos ition under general anesthesia via endotracheal tube. The abdomen and the perineum were prepped and draped in the usual sterile fashion. A surgical time- out was done. The patient was on scheduled IV Zosyn. A Kitchen catheter was then inserted. A TAP block was done by the anesthesiologist. I made a short incision in the low midline using blade 15 and this was carried down with electrocautery through the full-thickness of the skin and subcutaneous fat down to the fascia. The fascia was visualized. I made an incision in the fascia with electrocautery. I entered the peritoneum. The Eduard wound retractor was positioned. The GelPort along with an insufflating port was attached. Insufflation was done to a pressure of 15 mm Hg. The laparoscope, 30 degree, 10 mm, was inserted and with laparoscopic visualization I inserted a 5/12 mm port in the epigastric area. The insufflating port as well as the laparoscope was removed and the laparoscope was positioned through the epigastric port. With laparoscopic visualization, I inserted my hand proceeded to do laparoscopic examination of the pelvis. Distal sigmoid was very inflamed and indurated. This was also very adherent to the pelvic sidewall on the left side There was note of significant adherent bowel loops towards the rectosigmoid as well. I inserted another 5/10 mm port in the right lower quadrant. I inserted the LigaSure through this port. I then proceeded to do extensive and careful lysis of adhesions of the adherent small bowel loops. We proceeded with this slowly and gently until we are able to reflect the small bowel loops away from the pelvis. These small bowel loops were adherent to the inflamed area of the sigmoid The patient was in a head down position. This allowed us to have a good visualization of the entire sigmoid and rectosigmoid by reflecting of the small bowel loops away from the pelvis. Again, there was note of marked induration of the distal sigmoid. This extended all the way to the mid sigmoid and I had to carefully divide the adherent and indurated sigmoid from the pelvic sidewall using gentle use of the pusher. We to extra care that we were not entering to deep into the retroperitoneum as we are getting close to the plane of the ureter I was able to do some dissection as well on the peritoneum of the right side of the rectum. Again, this was markedly indurated. I therefore decided to transect proximally to allow us dissection of the mesosigmoid from proximal to distal. I chose a noninflamed area of the mid sigmoid. I created a mesenteric window. We used an Endo-CHARLOTTE 60 mm stapler through the right lower quadrant port. We divided this mid sigmoid. I then proceeded to carefully divide the attached mesentery of the sigmoid using the LigaSure. Again, the tissues were very markedly indurated and we encountered significant oozing throughout this dissection. We had to proceed very slowly and carefully as the planes were extremely difficult and the tissues were very indurated. We proceeded mm by mm, dividing the peritoneum of the sigmoid and the fatty layers of the mesentery as well. This part of the procedure took an extended period of time Eventually, I was able to reach the very distal sigmoid but the inflammatory process extended way past this. We had to do an anterior resection as we had to mobilize the proximal rectum as well to reach the more supple segment of the rectum. I had to mobilize the proximal sigmoid by dividing the peritoneal attachments laterally on both sides. This allowed me to pull up the rectum and visualize the attached mesorectum. I had to continue to divide the mesorectum which was very indurated with a lot of phlegmonous changes and micro abscesses. There was also significant oozing from the area in question of the acute inflammation Eventually, as able to reach the more supple segment of the rectum. I tried the radial stapler initially but we could not get this past the entire diameter of the rectum. I therefore had to switch to a 45 mm stapler. I was able to divide the rectum as an anterior resection. I completed the resection by dividing the remaining attached mesentery. The distal sigmoid and proximal rectum was then retrieved through the midline incision We are able to visualize the staple line of the distal rectum and this appeared to be intact We observed for hemostasis. There was note of diffuse oozing from the divided very inflamed and indurated mesorectum. However, there was no significant brisk bleeding I then proceeded to mobilize more of the left colon by dividing the ligamentous attachments along the white line of Toldt. This allowed us more mobilization and adequate length to bring up our colostomy. Once I felt that we had enough length to bring up the colostomy, I desufflated I excised the discoid piece of skin from the left lower quadrant which she had been earlier marked by the stoma nurse. This was done using a blade 10. I carried down this incision through the thick subcutaneous fat on all the way to the anterior sheath. I divided the anterior sheath with electrocautery. We did muscle-splitting all the way to the posterior sheath. I dilated this to about 3 fingers. I applied a small-sized Eduard wound retractor. I inserted a Pap back to this and pulled up the stump of proximal sigmoid through the stoma opening. This was achieved without difficulty. We removed the Eduard wound retractor. We then proceeded to reapply the GelPort and the Eduard wound retractor in the midline. I examined laparoscopically. There was adequate hemostasis in the pelvis. I examined bowel loops laparoscopically. There was no evidence of any bowel injury. All 4 quadrants were examined There was no twisting of the colostomy I then proceeded to position a JAVID drain into the pelvis through the right lower quadrant incision. This was secured to the skin with according nylon 3-0 sutures. We irrigated the pelvis and suctioned out the irrigant fluid. Once hemostasis was confirmed, I proceeded to then removed the GelPort and the exit wound retractor. We desufflated. We closed the fascia of the midline with a running Maxon 1 stitch. I examined the fascial closure laparoscopically and there was no bowel loops within this. I therefore removed the ports. All skin incisions were then closed with skin judi. We matured the colostomy. I excised the staple line. I applied a circumferential row of full-thickness Polysorb 3-0 sutures to the subdermal layer to secure this stoma opening . The stoma appeared viable and well vascularized at the end of the procedure. I examined the stoma with my finger and this was patent past the fascial layer. Dressings were applied. The colostomy appliance was placed and the procedure was completed. The patient tolerated the procedure well. There were no immediate complications. Initial and final counts of sponges and instruments were correct. Estimated blood loss was about 250 cc The patient was extubated without difficulty and transferred to the recovery room with stable vital signs.
--- NOTE | 2024-06-26 18:00 | PM.EVENT ---
Event Note Date of Service: 06/26/24 Event Note: seen postop underwent HALS anterior resection, colostomy for perforated diverticulitis, severe inflammatory changes in rectosigmoid appears to have adequate pain control good UO, clear stable VS JAVID drain deep sero-sanguinous pain mgt await stoma function family updated Time Spent With Patient Time: Total time managing care of this patient today ____ minutes.
--- NOTE | 2024-06-26 19:19 | PC.NURSE ---
Per PACU Nurse, pt. had received total of 20 mil equivalent IV in OR
[2024-06-26 19:48] LABS: Anion Gap 13 (12-20); Blood Urea Nitrogen 7 mg/dL (9-16); Carbon Dioxide 27 mmol/L (22-29); Chloride 104 mmol/L (96-108); Creatinine Clr Calc Pharmacy 153.1; Estimated Glomerular Filt Rate > 60; Glucose Random 131 mg/dL (60-115); Potassium 3.4 mmol/L (3.3-5.1); Sodium 141 mmol/L (135-145)
[2024-06-26] MEDS: Enoxaparin Sodium 40 MG/0.4 ML SYRINGE SUBCUT (19:48)
[2024-06-26] MEDS: oxyCODONE HCl Immed Release 5 MG TABLET PO (19:48)
[2024-06-26] MEDS: Acetaminophen 1,000 MG/100 ML PIGGYBACK 400 MG IV (19:55)
[2024-06-27] VITALS: BP 140/71; PULSE 73; RESP 16; TEMP 36.4; O2SAT 98
[2024-06-27] MEDS: Lactated Ringers 1,000 ML 100 ML IVCONT ×3 (01:05→17:09)
[2024-06-27] MEDS: Acetaminophen 1,000 MG/100 ML PIGGYBACK 400 MG IV ×3 (02:49→20:14)
[2024-06-27] MEDS: Piperacillin Sodium/Tazobactam 3.375 GM in 0.9 % Sodium Chloride 50 ML IV ×4 (02:52→20:18)
[2024-06-27 03:54] VITALS: BP 171/87; PULSE 72; RESP 16; TEMP 36.8; O2SAT 96
[2024-06-27] MEDS: Ketorolac Tromethamine 30 MG/ML VIAL IVPUSH ×3 (06:09→17:09)
[2024-06-27 06:52] LABS: Hematocrit 35.4 % (42.0-52.0); Hemoglobin 12.3 g/dl (14.0-18.0); Mean Corpuscular HGB Conc 34.7 g/dl (31.0-36.0); Mean Corpuscular Hemoglobin 27.4 pg (27.0-33.0); Mean Corpuscular Volume 78.8 fL (80.0-98.0); Mean Platelet Volume 9.3 fL (9.4-12.4); Platelet Count 377 X10*3/uL (160-400); Red Blood Count 4.49 X10*6/uL (4.60-5.80); Red Cell Distribution Width 13.6 % (11.0-16.0); White Blood Count 14.3 X10*3/uL (4.8-10.8)
[2024-06-27 07:07] LABS: Anion Gap 15 (12-20); Blood Urea Nitrogen 6 mg/dL (9-16); Carbon Dioxide 26 mmol/L (22-29); Chloride 103 mmol/L (96-108); Creatinine Clr Calc Pharmacy 149.3; Estimated Glomerular Filt Rate > 60; Glucose Random 110 mg/dL (60-115); Potassium 3.3 mmol/L (3.3-5.1); Sodium 141 mmol/L (135-145)
--- NOTE | 2024-06-27 07:08 | HO.STUDENTPN ---
Subjective Subjective Date of Service: 06/27/24 <[facility] Last Filed: 06/27/24 07:27> 06/27/24 <Thalia Lakhani PA-C - Last Filed: 06/27/24 07:36> 06/27/24 <Orlando Felder MD - Last Filed: 06/27/24 08:12> Interval History: Reports decreased pain this morning (1-5/10) with analgesia. Pain feels like burning pain No nausea, vomiting; still NPO No overnight events <[facility] Last Filed: 06/27/24 07:27> Constitutional Constitutional: Reports no additional constitutional complaints and Denies fever(s) <[facility] Filed: 06/27/24 07:27> Eyes Eyes: Reports no additional eye complaints <[facility] Filed: 06/27/24 07:27> ENT Ears, Nose, Mouth, and Throat: Reports system reviewed and no additional complaints, except as documented <[facility] Filed: 06/27/24 07:27> Cardiovascular Cardiovascular: Reports no additional cardiovascular complaints, Denies chest pain and Denies syncope <[facility] Last Filed: 06/27/24 07:27> Respiratory Respiratory: Reports no additional respiratory complaints <[facility] Filed: 06/27/24 07:27> Gastrointestinal Gastrointestinal: Reports abdominal pain, Denies bloating, Denies nausea and Denies vomiting <[facility] Filed: 06/27/24 07:27> Genitourinary Genitourinary: Reports no additional male genitourinary complaints <[facility] Last Filed: 06/27/24 07:27> Musculoskeletal Musculoskeletal: Reports no additional musculoskeletal complaints <[facility] Filed: 06/27/24 07:27> Integumentary/Breasts Skin/Breast: Reports no additional skin complaints <[facility] Filed: 06/27/24 07:27> Neurologic Neurologic: Reports system reviewed and no additional complaints, except as documented and Denies syncope <[facility] Filed: 06/27/24 07:27> Psychiatric Psychiatric: Reports no additional psychiatric complaints <[facility] Last Filed: 06/27/24 07:27> Physical Exam Vital Signs: Vital Signs: Last Vital Signs Temp 98.3 F 06/27/24 03:54 Pulse 72 06/27/24 03:54 Resp 16 06/27/24 03:54 BP 171/87 H 06/27/24 03:54 Pulse Ox 96 06/27/24 03:54 O2 Del Method Room Air 06/27/24 03:54 O2 Flow Rate 99 06/26/24 16:15 BMI result Body Mass Index 37.4 <[facility] Last Filed: 06/27/24 07:27> Afebrile; hypertensive <[facility] Last Filed: 06/27/24 07:27> Const: General: cooperative, comfortable, alert and awake <[facility] Filed: 06/27/24 07:27> Orientation/consciousness: patient oriented x3 <[facility] Filed: 06/27/24 07:27> HEENT: Head: Yes normocephalic and Yes atraumatic <[facility] Filed: 06/27/24 07:27> Ears: hearing grossly normal bilaterally <[facility] Filed: 06/27/24 07:27> Face and sinus: Yes face symmetric <[facility] Filed: 06/27/24 07:27> Eyes: General: appearance normal, both eyes and all related structures <[facility] Filed: 06/27/24 07:27> Sclerae: sclerae normal <[facility] Filed: 06/27/24 07:27> EOM: EOMs intact bilaterally <[facility] Filed: 06/27/24 07:27> Neck: Neck: Yes full ROM and Yes no JVD <[facility] Filed: 06/27/24 07:27> Resp: Effort & Inspection: normal respiratory effort <[facility] [place] Filed: 06/27/24 07:27> Auscultation: clear to auscultation bilaterally, no crackles, no rales, no rhonchi and no wheezes <[facility] Filed: 06/27/24 07:27> Cardio: Jugular venous distension: no JVD [place] [place]: 06/27/24 07:27> Rate: regular rate [place] [place] Filed: 06/27/24 07:27> Rhythm: regular rhythm [place] [place] Filed: 06/27/24 07:27> Heart sounds: S1 normal heart sound present, S2 normal heart sound present, no gallops, no murmurs and no rubs [place] [place] Filed: 06/27/24 07:27> Peripheral pulses: Peripheral pulses 2+ throughout [place] [place] Filed: 06/27/24 07:27> GI: Inspection: No distended, Yes incision (dressings c/d/i; ostomy site beef-red, bag w/ serosanguinous fluid) and Yes other (drain in place with serosanguinous fluid) [place] [place] Filed: 06/27/24 07:27> Palpation (GI): Soft to palpation, Tenderness to palpation present (GI) (appropriate tenderness to incision sites), no guarding, not rigid, no masses and No Rebound tenderness present [place] [place] Filed: 06/27/24 07:27> Auscultation: normoactive bowel sounds <[facility] [place] Filed: 06/27/24 07:27> : General: Yes bladder normal to palpation, Yes no CVA tenderness and Yes other (tidwell in place, urine clear yellow) [place] [place] Filed: 06/27/24 07:27> Back/Spine/Pelvis: Back: no CVA tenderness [place] [place] Filed: 06/27/24 07:27> Skin: General skin exam: no rashes or lesions noted [place] [place] Filed: 06/27/24 07:27> Neuro: General: patient oriented x3 and no focal motor deficits [place] [place] Filed: 06/27/24 07:27> Extrem: General: Yes normal to inspection, Yes capillary refill normal, Yes no pedal edema and Yes no calf tenderness [place] [place] Filed: 06/27/24 07:27> Objective Data Active Medications Calcium Carbonate (Calcium Carbonate 750 Mg Tab.Chew) 750 mg PO Q4H PRN PRN Reason: Heartburn Enoxaparin Sodium (Enoxaparin Sodium 40 Mg/0.4 Ml Syringe) 40 mg SUBCUT Q24H [facility] Last Admin: 06/26/24 19:48 Dose: 40 mg Documented By: KAYE Hydromorphone HCl (Hydromorphone Hcl 1 Mg/Ml Syringe) 1 mg IVPUSH Q4H PRN; Protocol PRN Reason: Pain, Severe (Pain Scale 7-10) Last Admin: 06/26/24 17:34 Dose: 1 mg Documented By: GAIL Piperacillin Sod/Tazobactam (Sod 3.375 gm/ Sodium Chloride) 50 mls @ 100 mls/hr IV Q6H [facility] Last Infusion: 06/27/24 03:30 Dose: Infused Documented By: KAYE Lactated Ringer's (Lr) 1,000 mls @ 100 mls/hr IVCONT .Q10H [facility] Last Admin: 06/27/24 01:05 Dose: 100 mls/hr Documented By: KAYE Acetaminophen (Ofirmev) 1,000 mg in 100 mls @ 400 mls/hr IV Q6H [facility] Last Infusion: 06/27/24 03:20 Dose: Infused Documented By: KAYE Ketorolac Tromethamine (Ketorolac Tromethamine 30 Mg/Ml Vial) 30 mg IVPUSH Q6H PRN PRN Reason: abdominal pain Stop: 07/01/24 17:11 Last Admin: 06/27/24 06:09 Dose: 30 mg Documented By: KAYE Magnesium Hydroxide (Milk Of Magnesia 30 Ml Oral.Susp) 30 ml PO DAILY PRN PRN Reason: Constipation Melatonin (Melatonin 3 Mg Tablet) 6 mg PO BEDTIME PRN PRN Reason: Insomnia Last Admin: 06/25/24 21:05 Dose: 6 mg Documented By: KAYE Ondansetron HCl (Ondansetron Hcl 4 Mg/2 Ml Vial) 4 mg IVPUSH Q6H PRN PRN Reason: Nausea and Vomiting Oxycodone HCl (Oxycodone Hcl Immed Release 5 Mg Tablet) 5 mg PO Q4H PRN PRN Reason: Pain, Moderate(Pain Scale 4-6) Last Admin: 06/26/24 19:48 Dose: 5 mg Documented By: KAYE Sodium Chloride (0.9 % Sodium Chloride Flush 3 Ml Syringe) [facility] Last Admin: 06/27/24 00:50 Dose: Not Given Documented By: KAYE Non-Admin Reason: IV Running <Vkiki Borges - Last Filed: 06/27/24 07:27> Labs CBC & Chem 7: 06/27/24 05:38 06/27/24 05:38 <Vikki Borges - Last Filed: 06/27/24 07:27> Labs: Laboratory Results - last 24 hr 06/26/24 06/26/24 06/26/24 09:58 12:00 12:03 MCV 79.1 L MCH 26.5 L MCHC 33.5 RDW 13.4 Plt Count 311 D MPV 9.4 Immature Gran % (Auto) 0.6 H Neut % (Auto) 74.8 H Lymph % (Auto) 12.6 L Kenton % (Auto) 9.5 Eos % (Auto) 1.9 Baso % (Auto) 0.6 Lymph # (Auto) 1.3 Kenton # (Auto) 1.0 Eos # (Auto) 0.2 Baso # (Auto) 0.1 Abs Immat Gran (auto) 0.06 H Absolute Neuts (auto) 7.8 Absolute Nucleated RBC 0.000 Nucleated RBC % (auto) 0.0 Anion Gap 15 Estim Creat Clear Calc 135.9 Estimated GFR > 60 POC Glucose 93 Random Glucose 100 Calcium 9.1 Magnesium 2.2 Blood Type B Negative Antibody Screen NEGATIVE 06/26/24 06/27/24 19:12 05:38 MCV 78.8 L MCH 27.4 MCHC 34.7 RDW 13.6 Plt Count 377 MPV 9.3 L Immature Gran % (Auto) Neut % (Auto) Lymph % (Auto) Kenton % (Auto) Eos % (Auto) Baso % (Auto) Lymph # (Auto) Kenton # (Auto) Eos # (Auto) Baso # (Auto) Abs Immat Gran (auto) Absolute Neuts (auto) Absolute Nucleated RBC 0.000 Nucleated RBC % (auto) 0.0 Anion Gap 13 15 Estim Creat Clear Calc 153.1 149.3 Estimated GFR > 60 > 60 POC Glucose Random Glucose 131 H 110 Calcium 9.0 9.0 Magnesium Blood Type Antibody Screen <Vikki Borges - Last Filed: 06/27/24 07:27> Assessment and Plan (1) Diverticulitis: Status: Acute <Vikki Borges - Last Filed: 06/27/24 07:27> Assessment and Plan: States pain is controlled Looks comfortable No events overnight Abdomen soft Stoma viable, no output yet Urine output adequate and clear Out of bed today DC Tidwell Clear liquids Await return of GI function Continue antibiotics Drain in place Seen and examined independently <Orlando Felder MD - Last Filed: 06/27/24 08:12> (2) Perforation bowel: Status: Acute <Vikki Borges - Last Filed: 06/27/24 07:27> (3) Status post Kassy procedure: Status: Acute <Vikki Borges Last Filed: 06/27/24 07:27> Assessment and Plan: POD1 s/p VAZQUEZ laporascopic colon resection w/ ostomy; afebrile Pain under control w/ analgesia, appropriate tenderness to incisions; no n/v, NPO Ostomy bag in place, sanguineous fluid, no fecal matter yet Drain in place, 185 mL/18hrs, sanguineous fluid Tidwell in place, UO 0.54 ml/kg/hr, clear yellow Went over proper use of IS with patient Plan: -Continue analgesia with ketorolac 30mg q6hr, Acetaminophen 100mL q6hr, and Hydromorphone 1mg q4hrs prn for severe pain -Continue Zosyn q6hrs -Lovenox 40mg subq q24hr for DVT prophylaxis -Continue to monitor ostomy bag for fecal matter -Encourage IS use <Vikki Borges Last Filed: 06/27/24 07:27> POD1 s/p VAZQUEZ laporascopic colon resection w/ ostomy; afebrile Pain under control w/ analgesia, appropriate tenderness to incisions; no n/v Plan: -Continue analgesia with ketorolac 30mg q6hr, Acetaminophen 1000mL q6hr, and Hydromorphone 1mg q4hrs prn for severe pain -Continue Zosyn q6hrs -Lovenox 40mg subq q24hr for DVT prophylaxis -Continue to monitor ostomy bag for fecal matter -Encourage IS use Agree with above assessment and plan. Patient POD #1 s/p LORRIE sigmoid resection, end colostomy for sigmoid diverticulitis with microperf and abscess. Doing fairly well post op. VSS. Abd exam benign with clean/intact dressings, drain serosanguineous output, ostomy viable appearing without stool output. Clear liquids as tolerated. Cont IV zosyn, IVF. WBC likely reactive, H/H stable. Cont pain control. Encouraged OOB and ambulation today, IS use. Dc tidwell. Await GI function. Ostomy education. <Thalia Lakhani PA-C - Last Filed: 06/27/24 07:36> Quality Stroke Does the patient have a stroke diagnosis?: No <Vikki Borges - Last Filed: 06/27/24 07:27> VTE Prior VTE?: No <Vikki Borges - Last Filed: 06/27/24 07:27> VTE Risk Level:: Medical - moderate - high <Vikki Borges - Last Filed: 06/27/24 07:27> VTE Device Contraindication: N/A - Device Ordered <Vikki Borges - Last Filed: 06/27/24 07:27> VTE Drug Contraindication: N/A - Med Ordered <Vikki Borges - Last Filed: 06/27/24 07:27>
[2024-06-27 07:50] VITALS: BP 168/82; PULSE 66; RESP 16; TEMP 36.2; O2SAT 96
--- NOTE | 2024-06-27 08:00 | HO.OSTOMY ---
Ostomy Consult - Initial Teaching 33yr old male admitted on 06/22/24 18:28 see h&P for detailed history. Patient had Hartmans procedure with colostomy creation by Dr. Felder 06/26/24. ?Upon entry into patient's room, he is lying in his bed, he is alert and oriented x 3, he currently has no complaints. ?Introductions were completed, he is agreeable to continuing with consult but reports being tired. ? We discussed his pain control as adequate and comfortable at the moment, he reports increasing the use of his IS. He has not yet walked but does understand he will likely ambulate today later in the day. ?We began by discussing general knowledge about the Colostomy and questions he had. ?We discussed opening and closing the ostomy pouch. He was noted to be falling back asleep at this time - he was agreeable to me returning at a future date and or time. Prior to leaving I assessed his pouch which was intact and no leaking noted at this time = there was no gas noted in the pouch and no stool. Poteet red bowel sweat was noted in the pouch. The stoma is red and moist no necrosis noted.?All questions and concerns addressed at this time.
--- NOTE | 2024-06-27 08:10 | HO.PM.IMPN ---
Subjective Subjective Date of Service: 06/27/24 Interval History: f/u on diverticulitis with microperf had colectomy, colostomy for perforated diverticulitis, severe inflammatory changes in rectosigmoid on 06/26 Pain is controlled this morning Physical Exam Vital Signs: Vital Signs: Last Vital Signs Temp 97.2 F 06/27/24 07:50 Pulse 66 06/27/24 07:50 Resp 16 06/27/24 07:50 BP 168/82 H 06/27/24 07:50 Pulse Ox 96 06/27/24 07:50 O2 Del Method Room Air 06/27/24 07:50 O2 Flow Rate 99 06/26/24 16:15 BMI result Body Mass Index 37.4 General: AO X 3, no acute distress Resp: CTA bilateral CVS: S1,S2,RRR GI: +BS, NT, no distention, colostomy in place Skin: No rash Neuro: motor grossly intact Psych: appropriate affect Objective Data Active Medications Calcium Carbonate (Calcium Carbonate 750 Mg Tab.Chew) 750 mg PO Q4H PRN PRN Reason: Heartburn Enoxaparin Sodium (Enoxaparin Sodium 40 Mg/0.4 Ml Syringe) 40 mg SUBCUT Q24H [facility] Last Admin: 06/26/24 19:48 Dose: 40 mg Documented By: KAYE Hydromorphone HCl (Hydromorphone Hcl 1 Mg/Ml Syringe) 1 mg IVPUSH Q4H PRN; Protocol PRN Reason: Pain, Severe (Pain Scale 7-10) Last Admin: 06/26/24 17:34 Dose: 1 mg Documented By: GAIL Piperacillin Sod/Tazobactam (Sod 3.375 gm/ Sodium Chloride) 50 mls @ 100 mls/hr IV Q6H [facility] Last Infusion: 06/27/24 03:30 Dose: Infused Documented By: KAYE Lactated Ringer's (Lr) 1,000 mls @ 100 mls/hr IVCONT .Q10H [facility] Last Admin: 06/27/24 07:17 Dose: Not Given Documented By: YUVAL Non-Admin Reason: IV Running Acetaminophen (Ofirmev) 1,000 mg in 100 mls @ 400 mls/hr IV Q6H [facility] Last Infusion: 06/27/24 03:20 Dose: Infused Documented By: KAYE Ketorolac Tromethamine (Ketorolac Tromethamine 30 Mg/Ml Vial) 30 mg IVPUSH Q6H PRN PRN Reason: abdominal pain Stop: 07/01/24 17:11 Last Admin: 06/27/24 06:09 Dose: 30 mg Documented By: KAYE Magnesium Hydroxide (Milk Of Magnesia 30 Ml Oral.Susp) 30 ml PO DAILY PRN PRN Reason: Constipation Melatonin (Melatonin 3 Mg Tablet) 6 mg PO BEDTIME PRN PRN Reason: Insomnia Last Admin: 06/25/24 21:05 Dose: 6 mg Documented By: KAYE Ondansetron HCl (Ondansetron Hcl 4 Mg/2 Ml Vial) 4 mg IVPUSH Q6H PRN PRN Reason: Nausea and Vomiting Oxycodone HCl (Oxycodone Hcl Immed Release 5 Mg Tablet) 5 mg PO Q4H PRN PRN Reason: Pain, Moderate(Pain Scale 4-6) Last Admin: 06/26/24 19:48 Dose: 5 mg Documented By: KAYE Sodium Chloride (0.9 % Sodium Chloride Flush 3 Ml Syringe) 3 ml IVFLUSH [facility] Last Admin: 06/27/24 07:17 Dose: Not Given Documented By: YUVAL Non-Admin Reason: IV Running Labs 06/27/24 05:38 06/27/24 05:38 Labs: Laboratory Results - last 24 hr 06/26/24 06/26/24 06/26/24 09:58 12:00 12:03 MCV 79.1 L MCH 26.5 L MCHC 33.5 RDW 13.4 Plt Count 311 D MPV 9.4 Immature Gran % (Auto) 0.6 H Neut % (Auto) 74.8 H Lymph % (Auto) 12.6 L Lawrence % (Auto) 9.5 Eos % (Auto) 1.9 Baso % (Auto) 0.6 Lymph # (Auto) 1.3 Lawrence # (Auto) 1.0 Eos # (Auto) 0.2 Baso # (Auto) 0.1 Abs Immat Gran (auto) 0.06 H Absolute Neuts (auto) 7.8 Absolute Nucleated RBC 0.000 Nucleated RBC % (auto) 0.0 Anion Gap 15 Estim Creat Clear Calc 135.9 Estimated GFR > 60 POC Glucose 93 Random Glucose 100 Calcium 9.1 Magnesium 2.2 Blood Type B Negative Antibody Screen NEGATIVE 06/26/24 06/27/24 19:12 05:38 MCV 78.8 L MCH 27.4 MCHC 34.7 RDW 13.6 Plt Count 377 MPV 9.3 L Immature Gran % (Auto) Neut % (Auto) Lymph % (Auto) Lawrence % (Auto) Eos % (Auto) Baso % (Auto) Lymph # (Auto) Lawrence # (Auto) Eos # (Auto) Baso # (Auto) Abs Immat Gran (auto) Absolute Neuts (auto) Absolute Nucleated RBC 0.000 Nucleated RBC % (auto) 0.0 Anion Gap 13 15 Estim Creat Clear Calc 153.1 149.3 Estimated GFR > 60 > 60 POC Glucose Random Glucose 131 H 110 Calcium 9.0 9.0 Magnesium Blood Type Antibody Screen Assessment and Plan (1) Diverticulitis: Status: Acute Assessment and Plan: 33 y/o M with hx history significant obesity, elevated blood pressure readings, nonalcoholic fatty liver disease-came to ed with abdominal pain-admitted for acute diverticulitis with microperforation sepsis sec to acute diverticulitis with microperforation, repeat CT on 06/26 showed progression of perforation, higher wbc likely reactive, follow s/p high anterior (VAZQUEZ) laporascopic colon resection w/ ostomy on 06/26 continue Zosyn pain control dilauid, oxy and ketorolac diet advancement per surgery Persistent high BP reading, c/w underlying HTN -start Norvasc 5 dvt prophylax: s/c lovenox need for Inpt: post op care for complicated diverticulitis with perforation and needing surgery out of bed, ambulate Quality Stroke Does the patient have a stroke diagnosis?: No VTE Prior VTE?: No VTE Risk Level:: Medical - moderate - high VTE Device Contraindication: N/A - Device Ordered VTE Drug Contraindication: N/A - Med Ordered
[2024-06-27] MEDS: amLODIPine Besylate 5 MG TABLET PO (08:46)
--- NOTE | 2024-06-27 11:42 | MHC.CM.PN ---
POD#1 Resection with ostomy. Patient is tolerating a clear liquid diet. DP home with [facility] via family transport. CM will follow for discharge.
--- NOTE | 2024-06-27 13:30 | HO.POSTANES ---
Post Anesthesia Evaluation Post Anesthesia Evaluation Date of Service: 06/26/24 Vital Signs: Vital Signs Temp Pulse Resp BP Pulse Ox O2 Del Method 06/27/24 07:50 97.2 F 66 16 168/82 H 96 Room Air 06/27/24 03:54 98.3 F 72 16 171/87 H 96 Room Air Anesthesia: General Endotracheal-GETA Mental Status: Awake Pain Control: Satisfactory Nausea/Vomiting: None Hydration: Adequate Anesthesia-Related Issues: No Anes. Related Issues
--- NOTE | 2024-06-27 13:35 | PC.NURSE ---
Kitchen catheter removed per MD order at 10:30, next due to void at 16:30, Per Pt, reports voiding multiple times since in bathroom with no issues noted. Pt resting in bed comfortable, respirations even and unlabored, call sanchez is in reach.
[2024-06-27 15:23] VITALS: BP 154/82; PULSE 75; RESP 20; TEMP 36.2; O2SAT 97
--- NOTE | 2024-06-27 15:28 | PM.EVENT ---
Event Note Date of Service: 06/27/24 Event Note: Seen on afternoon rounds He has been ambulating Feels well and with good pain control He says he has been passing flatus via the stoma He is voiding freely without the Kitchen JAVID drain with deep serosanguineous output Looks well overall Likely plan to advance to regular diet tomorrow Pain management his sagar Kaufman was at bedside Time Spent With Patient Time: Total time managing care of this patient today ____ minutes.
[2024-06-27 19:21] VITALS: BP 159/82; PULSE 80; RESP 16; TEMP 36.6; O2SAT 97
[2024-06-27] MEDS: Enoxaparin Sodium 40 MG/0.4 ML SYRINGE SUBCUT (20:14)
[2024-06-27 23:15] VITALS: BP 154/80; PULSE 74; RESP 18; TEMP 36.2; O2SAT 97
[2024-06-28] MEDS: Ketorolac Tromethamine 30 MG/ML VIAL IVPUSH ×5 (00:02→23:20)
[2024-06-28] MEDS: 0.9 % Sodium Chloride Flush 3 ML SYRINGE IVFLUSH ×2 (00:03→23:24)
[2024-06-28] MEDS: Lactated Ringers 1,000 ML 100 ML IVCONT (02:20)
[2024-06-28] MEDS: Acetaminophen 1,000 MG/100 ML PIGGYBACK 400 MG IV ×4 (02:21→23:05)
[2024-06-28] MEDS: Piperacillin Sodium/Tazobactam 3.375 GM in 0.9 % Sodium Chloride 50 ML IV ×4 (02:22→21:17)
[2024-06-28 03:22] VITALS: BP 163/79; PULSE 76; RESP 18; TEMP 36.4; O2SAT 97
--- NOTE | 2024-06-28 05:32 | HO.PM.IMPN ---
Subjective Subjective Date of Service: 06/28/24 Interval History: f/u on diverticulitis with microperf colectomy with ostomy for severe inflammatory changes in rectosigmoid on 06/26 Doing well, pain is controlled. tolerating present diet. Physical Exam Vital Signs: Vital Signs: Last Vital Signs Temp 97.6 F 06/28/24 03:22 Pulse 76 06/28/24 03:22 Resp 18 06/28/24 03:22 BP 163/79 H 06/28/24 03:22 Pulse Ox 97 06/28/24 03:22 O2 Del Method Room Air 06/28/24 03:22 O2 Flow Rate 99 06/26/24 16:15 BMI result Body Mass Index 37.4 General: AO X 3, no acute distress Resp: CTA bilateral CVS: S1,S2,RRR GI: +BS, NT, no distention, ostomy in place Skin: No rash Neuro: motor grossly intact Psych: appropriate affect Objective Data Active Medications Amlodipine Besylate (Amlodipine Besylate 5 Mg Tablet) 5 mg PO DAILY [facility]; Protocol Last Admin: 06/27/24 08:46 Dose: 5 mg Documented By: YUVAL Calcium Carbonate (Calcium Carbonate 750 Mg Tab.Chew) 750 mg PO Q4H PRN PRN Reason: Heartburn Enoxaparin Sodium (Enoxaparin Sodium 40 Mg/0.4 Ml Syringe) 40 mg SUBCUT Q24H [facility] Last Admin: 06/27/24 20:14 Dose: 40 mg Documented By: JULIO Hydromorphone HCl (Hydromorphone Hcl 1 Mg/Ml Syringe) 1 mg IVPUSH Q4H PRN; Protocol PRN Reason: Pain, Severe (Pain Scale 7-10) Last Admin: 06/26/24 17:34 Dose: 1 mg Documented By: GAIL Piperacillin Sod/Tazobactam (Sod 3.375 gm/ Sodium Chloride) 50 mls @ 100 mls/hr IV Q6H [facility] Last Infusion: 06/28/24 03:01 Dose: Infused Documented By: JULIÁN Lactated Ringer's (Lr) 1,000 mls @ 100 mls/hr IVCONT .Q10H [facility] Last Admin: 06/28/24 02:20 Dose: 100 mls/hr Documented By: JULIÁN Acetaminophen (Ofirmev) 1,000 mg in 100 mls @ 400 mls/hr IV Q6H [facility] Last Infusion: 06/28/24 03:00 Dose: Infused Documented By: JULIÁN Ketorolac Tromethamine (Ketorolac Tromethamine 30 Mg/Ml Vial) 30 mg IVPUSH Q6H [facility] Stop: 07/01/24 17:11 Last Admin: 06/28/24 00:02 Dose: 30 mg Documented By: JULIÁN Magnesium Hydroxide (Milk Of Magnesia 30 Ml Oral.Susp) 30 ml PO DAILY PRN PRN Reason: Constipation Melatonin (Melatonin 3 Mg Tablet) 6 mg PO BEDTIME PRN PRN Reason: Insomnia Last Admin: 06/25/24 21:05 Dose: 6 mg Documented By: KAYE Ondansetron HCl (Ondansetron Hcl 4 Mg/2 Ml Vial) 4 mg IVPUSH Q6H PRN PRN Reason: Nausea and Vomiting Oxycodone HCl (Oxycodone Hcl Immed Release 5 Mg Tablet) 5 mg PO Q4H PRN PRN Reason: Pain, Moderate(Pain Scale 4-6) Last Admin: 06/26/24 19:48 Dose: 5 mg Documented By: KAYE Sodium Chloride (0.9 % Sodium Chloride Flush 3 Ml Syringe) [facility] Last Admin: 06/28/24 00:03 Dose: 3 ml Documented By: JULIÁN Labs 06/28/24 05:09 06/28/24 17:12 Labs: Laboratory Results - last 24 hr 06/27/24 05:38 MCV 78.8 L MCH 27.4 MCHC 34.7 RDW 13.6 Plt Count 377 MPV 9.3 L Absolute Nucleated RBC 0.000 Nucleated RBC % (auto) 0.0 Anion Gap 15 Estim Creat Clear Calc 149.3 Estimated GFR > 60 Random Glucose 110 Calcium 9.0 Assessment and Plan (1) Diverticulitis: Status: Acute Assessment and Plan: 33 y/o M with hx history significant obesity, elevated blood pressure readings, nonalcoholic fatty liver disease-came to ed with abdominal pain-admitted for acute diverticulitis with microperforation sepsis sec to acute diverticulitis with microperforation, repeat CT on 06/26 showed progression of perforation, higher wbc likely reactive, follow s/p high anterior (VAZQUEZ) laporascopic colon resection w/ ostomy on 06/26, doing well continue Zosyn, when ready for dc can transition to oral Augmentin pain control dilauid, oxy and ketorolac diet advancement per surgery Persistent high BP reading, c/w underlying HTN -start Norvasc 5 on 06/27. BP remains high, -add lisinopril 10 today Hypokalemia, replace with PO k, check Mag dvt prophylax: s/c lovenox need for Inpt: post op care for complicated diverticulitis with perforation and needing surgery out of bed, ambulate Quality Stroke Does the patient have a stroke diagnosis?: No VTE Prior VTE?: No VTE Risk Level:: Medical - moderate - high VTE Device Contraindication: N/A - Device Ordered VTE Drug Contraindication: N/A - Med Ordered
[2024-06-28 05:48] LABS: Hematocrit 32.4 % (42.0-52.0); Mean Corpuscular Hemoglobin 27.2 pg (27.0-33.0); Mean Platelet Volume 9.3 fL (9.4-12.4); Platelet Count 332 X10*3/uL (160-400); Red Blood Count 4.05 X10*6/uL (4.60-5.80); Red Cell Distribution Width 13.8 % (11.0-16.0); White Blood Count 12.1 X10*3/uL (4.8-10.8)
[2024-06-28 06:10] LABS: Anion Gap 14 (12-20); Blood Urea Nitrogen 5 mg/dL (9-16); Calcium 8.7 mg/dL (8.4-10.2); Carbon Dioxide 28 mmol/L (22-29); Chloride 104 mmol/L (96-108); Creatinine Clr Calc Pharmacy 151.2; Estimated Glomerular Filt Rate > 60; Glucose Random 91 mg/dL (60-115); Potassium 2.8 mmol/L (3.3-5.1); Sodium 143 mmol/L (135-145)
[2024-06-28] MEDS: Potassium Chloride Packet 20 MEQ PACKET 40 MEQ PO ×2 (07:08→17:57)
--- NOTE | 2024-06-28 07:08 | HO.STUDPN_ITS ---
Subjective Subjective Date of Service: 06/28/24 <[facility] Last Filed: 06/28/24 07:21> 06/28/24 <Thalia Lakhani PA-C - Last Filed: 06/28/24 07:34> 06/28/24 <Orlando Felder MD - Last Filed: 06/28/24 07:42> 06/28/24 <Mayito Davis MD - Last Filed: 06/28/24 08:57> Interval History: POD2 s/p [place] procedure, endorses pain while ambulating, otherwise pain under control No nausea, vomiting with liquid diet Endorses flatus with ostomy bag <[facility] Last Filed: 06/28/24 07:21> Constitutional Constitutional: Reports no additional constitutional complaints, Denies chills, Denies fever(s) and Denies headache(s) <[facility] Last Filed: 06/28/24 07:21> Eyes Eyes: Reports no additional eye complaints <[facility] Filed: 06/28/24 07:21> ENT Ears, Nose, Mouth, and Throat: Reports system reviewed and no additional complaints, except as documented and Denies headache(s) <[facility] Filed: 06/28/24 07:21> Cardiovascular Cardiovascular: Reports no additional cardiovascular complaints and Denies chest pain < [facility] Filed: 06/28/24 07:21> Respiratory Respiratory: Reports no additional respiratory complaints <[facility] Filed: 06/28/24 07:21> Gastrointestinal Gastrointestinal: Reports abdominal pain, Denies bloating, Denies nausea and Denies vomiting <[facility] Last Filed: 06/28/24 07:21> Genitourinary Genitourinary: Reports no additional male genitourinary complaints <[facility] Filed: 06/28/24 07:21> Musculoskeletal Musculoskeletal: Reports no additional musculoskeletal complaints <[facility] Filed: 06/28/24 07:21> Integumentary/Breasts Skin/Breast: Reports no additional skin complaints <[facility] Filed: 06/28/24 07:21> Neurologic Neurologic: Reports system reviewed and no additional complaints, except as documented and Denies headache(s) <[facility] Filed: 06/28/24 07:21> Psychiatric Psychiatric: Reports no additional psychiatric complaints <[facility]ki Filed: 06/28/24 07:21> Physical Exam 2 Vital Signs: Vital Signs: Last Vital Signs Temp 97.6 F 06/28/24 03:22 Pulse 76 06/28/24 03:22 Resp 18 06/28/24 03:22 BP 163/79 H 06/28/24 03:22 Pulse Ox 97 06/28/24 03:22 O2 Del Method Room Air 06/28/24 03:22 O2 Flow Rate 99 06/26/24 16:15 BMI result Body Mass Index 37.4 <[facility] Filed: 06/28/24 07:21> Afebrile <Vikki Filed: 06/28/24 07:21> Const: General: cooperative, comfortable, alert, awake and Physically active <[facility] Filed: 06/28/24 07:21> Orientation/consciousness: patient oriented x3 <[facility]ki Filed: 06/28/24 07:21> HEENT: Head: Yes normocephalic and Yes atraumatic <[facility]ikki Filed: 06/28/24 07:21> Ears: hearing grossly normal bilaterally <[facility]ki Filed: 06/28/24 07:21> Face and sinus: Yes face symmetric <[facility]ikki Filed: 06/28/24 07:21> Eyes: General: appearance normal, both eyes and all related structures < [facility]ki Filed: 06/28/24 07:21> Sclerae: sclerae normal <[facility] Filed: 06/28/24 07:21> EOM: EOMs intact bilaterally <[facility]ikki Filed: 06/28/24 07:21> Neck: Neck: Yes full ROM and Yes no JVD <Vikki Filed: 06/28/24 07:21> Resp: Effort & Inspection: normal respiratory effort <Vikki Filed: 06/28/24 07:21> Auscultation: clear to auscultation bilaterally, no crackles, no rales, no rhonchi and no wheezes <[facility] Filed: 06/28/24 07:21> Cardio: Rate: regular rate <[facility] [place] Filed: 06/28/24 07:21> Rhythm: regular rhythm <[facility] [place] Filed: 06/28/24 07:21> Heart sounds: S1 normal heart sound present, S2 normal heart sound present, no gallops, no murmurs and no rubs <[facility] [place] Filed: 06/28/24 07:21> Peripheral pulses: Peripheral pulses 2+ throughout <[facility] [place] Filed: 06/28/24 07:21> GI: Other: Drain in place with 80mL/24h of serosanguinous fluid Ostomy bag in place with dark brown liquid feces <[facility] [place] Filed: 06/28/24 07:21> Inspection: Yes normal to inspection, No distended, Yes incision (dressings c/d/i) and Yes other <[facility] [place] Filed: 06/28/24 07:21> Palpation (GI): Soft to palpation, nontender, no guarding and no masses < [facility] [place] Filed: 06/28/24 07:21> Percussion: Yes normal to percussion <[facility] [place] Filed: 06/28/24 07:21> Auscultation: normoactive bowel sounds <[facility] [place] Filed: 06/28/24 07:21> : General: Yes bladder normal to palpation and Yes no CVA tenderness < [facility] [place] Filed: 06/28/24 07:21> Back/Spine/Pelvis: Back: no CVA tenderness <[facility] [place] Filed: 06/28/24 07:21> Skin: General skin exam: no rashes or lesions noted <[facility] [place] Filed: 06/28/24 07:21> Neuro: General: patient oriented x3, moves all extremities and no focal motor deficits <[facility] [place] Filed: 06/28/24 07:21> Extrem: General: Yes capillary refill normal, Yes no pedal edema and No calf tenderness <Vikki Borges - Last Filed: 06/28/24 07:21> Objective Data Active Medications Amlodipine Besylate (Amlodipine Besylate 5 Mg Tablet) 5 mg PO DAILY [facility]; Protocol Last Admin: 06/27/24 08:46 Dose: 5 mg Documented By: YUVAL Calcium Carbonate (Calcium Carbonate 750 Mg Tab.Chew) 750 mg PO Q4H PRN PRN Reason: Heartburn Enoxaparin Sodium (Enoxaparin Sodium 40 Mg/0.4 Ml Syringe) 40 mg SUBCUT Q24H [facility] Last Admin: 06/27/24 20:14 Dose: 40 mg Documented By: JULIO Hydromorphone HCl (Hydromorphone Hcl 1 Mg/Ml Syringe) 1 mg IVPUSH Q4H PRN; Protocol PRN Reason: Pain, Severe (Pain Scale 7-10) Last Admin: 06/26/24 17:34 Dose: 1 mg Documented By: GAIL Piperacillin Sod/Tazobactam (Sod 3.375 gm/ Sodium Chloride) 50 mls @ 100 mls/hr IV Q6H [facility] Last Infusion: 06/28/24 03:01 Dose: Infused Documented By: JULIÁN Acetaminophen (Ofirmev) 1,000 mg in 100 mls @ 400 mls/hr IV Q6H [facility] Last Infusion: 06/28/24 03:00 Dose: Infused Documented By: JULIÁN Ketorolac Tromethamine (Ketorolac Tromethamine 30 Mg/Ml Vial) 30 mg IVPUSH Q6H [facility] Stop: 07/01/24 17:11 Last Admin: 06/28/24 05:47 Dose: 30 mg Documented By: JULIÁN Lisinopril (Lisinopril 10 Mg Tablet) 10 mg PO DAILY [facility]; Protocol Magnesium Hydroxide (Milk Of Magnesia 30 Ml Oral.Susp) 30 ml PO DAILY PRN PRN Reason: Constipation Melatonin (Melatonin 3 Mg Tablet) 6 mg PO BEDTIME PRN PRN Reason: Insomnia Last Admin: 06/25/24 21:05 Dose: 6 mg Documented By: KAYE Ondansetron HCl (Ondansetron Hcl 4 Mg/2 Ml Vial) 4 mg IVPUSH Q6H PRN PRN Reason: Nausea and Vomiting Oxycodone HCl (Oxycodone Hcl Immed Release 5 Mg Tablet) 5 mg PO Q4H PRN PRN Reason: Pain, Moderate(Pain Scale 4-6) Last Admin: 06/26/24 19:48 Dose: 5 mg Documented By: KAYE Potassium Chloride (Potassium Chloride Packet 20 Meq Packet) 40 meq PO Q12H [facility] Stop: 06/28/24 18:16 Sodium Chloride (0.9 % Sodium Chloride Flush 3 Ml Syringe) 3 ml IVFLUSH QSHIFT [facility] Last Admin: 06/28/24 00:03 Dose: 3 ml Documented By: JULIÁN <[facility] - Last Filed: 06/28/24 07:21> Labs CBC & Chem 7: 06/28/24 05:09 06/28/24 05:09 <[facility] - Last Filed: 06/28/24 07:21> Labs: Laboratory Results - last 24 hr 06/27/24 06/28/24 05:38 05:09 MCV 80.0 MCH 27.2 MCHC 34.0 RDW 13.8 Plt Count 332 MPV 9.3 L Absolute Nucleated RBC 0.000 Nucleated RBC % (auto) 0.0 Anion Gap 15 14 Estim Creat Clear Calc 149.3 151.2 Estimated GFR > 60 > 60 Random Glucose 110 91 Calcium 9.0 8.7 Magnesium 2.0 <[facility] - Last Filed: 06/28/24 07:21> Assessment and Plan (1) Status post [place] procedure: Status: Acute <[facility] - Last Filed: 06/28/24 07:21> Assessment and Plan: Has been passing flatus and stools via the stoma Now with good output Ambulating well Voiding freely Looks well Abdomen is soft JAVID drain with minimal serosanguineous output Diet as tolerated Doing well postoperatively Continue IV antibiotics K replacement Seen and examined independently <Orlando Felder MD - Last Filed: 06/28/24 07:42> (2) Diverticulitis: Status: Acute <[facility] - Last Filed: 06/28/24 07:21> (3) Perforation bowel: Status: Acute <[facility] Last Filed: 06/28/24 07:21> Assessment and Plan: POD2 s/p [place] procedure for perforated diverticulitis Remains afebrile, pain well controlled with analgesics (pt endorses pain mostly with ambulation) No nausea/vomiting on liquid diet Drain with serosenguinous fluid 80ml/24hrs; ostomy bag with dark brown liquid fecal matter and pt endorses flatus UO 0.9 ml/kg/hr in urinal Plan: -Advance diet today and monitor for progress -Encourage ambulation and IS use -Ostomy education with ostomy nurse -Continue analgesia prn for pain -Continue monitoring drain output <Vikki Borges - Last Filed: 06/28/24 07:21> POD2 s/p [place] procedure for perforated diverticulitis Remains afebrile, pain well controlled with analgesics (pt endorses pain mostly with ambulation) No nausea/vomiting on liquid diet Drain with serosenguinous fluid 80ml/24hrs; ostomy bag with dark brown liquid fecal matter and pt endorses flatus UO 0.9 ml/kg/hr in urinal Plan: -Advance diet today and monitor for progress -Encourage ambulation and IS use -Ostomy education with ostomy nurse -Continue analgesia prn for pain -Continue monitoring drain output POD2 s/p [place] procedure for perforated diverticulitis. Continues to do well post op. Pain well controlled, tolerating liquids. VSS. Abd exam benign with clean incision, ostomy slightly dusky but pink centrally, stool in appliance. JAVID drain serosanguineous output, remove later today or tomorrow. Advance to full liquids. Increase activity. Ostomy education. WBC count downtrending. Hypokalemia on labs being replenished. <Thalia Lakhani PA-C - Last Filed: 06/28/24 07:34> Quality Stroke Does the patient have a stroke diagnosis?: No <Vikki Borges - Last Filed: 06/28/24 07:21> VTE Prior VTE?: No <Vikki Borges - Last Filed: 06/28/24 07:21> VTE Risk Level:: Medical - moderate - high <Vikki Borges - Last Filed: 06/28/24 07:21> VTE Device Contraindication: N/A - Device Ordered <Vikki Borges - Last Filed: 06/28/24 07:21> VTE Drug Contraindication: N/A - Med Ordered <Vikki Borges - Last Filed: 06/28/24 07:21>
[2024-06-28 07:19] VITALS: BP 178/86; PULSE 84; RESP 16; TEMP 36; O2SAT 98
[2024-06-28] MEDS: amLODIPine Besylate 5 MG TABLET PO (08:37)
[2024-06-28] MEDS: lisinopriL 10 MG TABLET PO (08:38)
[2024-06-28 11:50] VITALS: BP 178/98; PULSE 76; RESP 18; TEMP 36; O2SAT 98
--- NOTE | 2024-06-28 14:30 | MHC.CM.PN ---
per rounds no dc date at this time when dcd p[t expected to go home with [facility]ns
[2024-06-28 15:13] VITALS: BP 162/91; PULSE 89; RESP 18; TEMP 36; O2SAT 99
--- NOTE | 2024-06-28 15:59 | HO.OSTOMY ---
Ostomy Consult - Follow up Teaching 33yr old male admitted on 06/22/24 18:28 see h&P for detailed history. Patient had Hartmans procedure with colostomy creation by Dr. Felder 06/26/24. ?Upon entry into patient's room, he is sitting in his recliner chair, he is alert and oriented x 3, he currently has no complaints. ?Introductions were completed, he is agreeable to continuing with consult. Family present for teaching, desire to participate and support patient. ? We discussed his pain control as adequate and comfortable at the moment, he reports increasing the use of his IS and increasing ambulation. We began by discussing general knowledge about the Colostomy and questions he had. ?We discussed opening and closing the ostomy pouch. He was able to independently provide a return demonstration on an empty pouch. ?He had not yet emptied his pouch. ?We discussed the importance of emptying pouch when 1/3 to 1/2 full, how to empty pouch, and lining water with toilet paper to prevent splash back. With an empty Coloplast pouch he performed a demonstration. ?We then ambulated to the and he independently with some minor assistance emptied his pouch him self - family observed. He was also educated on when to contact concrete batcher/Dr Felder's office/seek emergency medical treatment. Patient was given some ostomy pouches, barrier rings, for transition to home. Aware that pouches and rings will be ordered by the outpt nurse and sent to his home. Reviewed written education with patient and left at bedside for further review. He watched the teaching videos from the [employer] kit. Permission was granted for pouch assessment and he was agreeable to a pouch change. ? ?He was changed into a Coloplast 57069, 1 Piece cut to fit (30 round), ?MCJ intact, Stoma red / pink and miost small area of necrotic tissue noted to the top of the stoma, Stoma is flush to skin level. ?He observed the pouch change but requested to not participate today. ?He had excellent questions that led to further discussion. ?After the pouch was changed he was able to open close on the pouch attached to his abdomen without coaching. ?He reported having no questions at this time. ?Patient was made aware I will return to bedside early next week for ongoing education if he remains inpatient - however to note patient seems to have a good understanding of care and material at this time. ?He will benefit from VNA services at time of discharge. ?All questions and concerns addressed at this time. Next teaching session goals: Demonstrate open and close independently - pt should be emptying with staff over the weekend Steps to a pouch change he is able to recall We discussed the following steps: 1. Empty pouch before pouch change 2. Remove pouch using push/pull technique from top to bottom 3. Cleanse stoma and skin with tap water only - no soap or baby wipes 4. Pat dry 5. Measure stoma and cut new pouch no more than 1/8 inch larger than stoma and no smaller than stoma 6. If instructed by your ostomy nurse stretch barrier ring to the size of the stoma and press onto skin around stoma (up to the edge of the stoma but not onto the stoma) 7. Press the new pouch into place and hold for several minutes (close pouch tail) 8. Empty pouch when 1/3 to 1/2 full 9. Change pouch twice weekly on a schedule (for example, every Monday and ) and as needed for any leaking (feels like intense itch or burn at edge of stoma)10. May order pre-cut pouches (already cut to size of stoma) once stoma measures the same
[2024-06-28 17:47] LABS: Anion Gap 15 (12-20); Carbon Dioxide 28 mmol/L (22-29); Chloride 103 mmol/L (96-108); Potassium 3.1 mmol/L (3.3-5.1); Sodium 143 mmol/L (135-145)
[2024-06-28 19:55] VITALS: BP 161/88; PULSE 84; RESP 18; TEMP 36.3; O2SAT 100
[2024-06-28] MEDS: Enoxaparin Sodium 40 MG/0.4 ML SYRINGE SUBCUT (21:11)
[2024-06-28 23:34] VITALS: BP 144/62; PULSE 92; RESP 18; TEMP 36.2; O2SAT 97
[2024-06-29 03:37] VITALS: BP 166/91; PULSE 71; RESP 20; TEMP 36.2; O2SAT 99
[2024-06-29] MEDS: Piperacillin Sodium/Tazobactam 3.375 GM in 0.9 % Sodium Chloride 50 ML IV ×4 (04:18→22:15)
[2024-06-29] MEDS: Ketorolac Tromethamine 30 MG/ML VIAL IVPUSH ×2 (05:42→12:34)
[2024-06-29 08:00] VITALS: BP 143/81; PULSE 68; RESP 16; TEMP 36.8; O2SAT 97
[2024-06-29] MEDS: amLODIPine Besylate 5 MG TABLET PO (08:48)
[2024-06-29] MEDS: lisinopriL 10 MG TABLET PO (08:48)
[2024-06-29] MEDS: Acetaminophen 1,000 MG/100 ML PIGGYBACK 400 MG IV ×2 (08:50→15:24)
[2024-06-29 08:55] LABS: Hematocrit 33.3 % (42.0-52.0); Hemoglobin 11.1 g/dl (14.0-18.0); Mean Corpuscular HGB Conc 33.3 g/dl (31.0-36.0); Mean Corpuscular Hemoglobin 26.9 pg (27.0-33.0); Mean Corpuscular Volume 80.6 fL (80.0-98.0); Mean Platelet Volume 9.1 fL (9.4-12.4); Platelet Count 330 X10*3/uL (160-400); Red Blood Count 4.13 X10*6/uL (4.60-5.80); Red Cell Distribution Width 13.9 % (11.0-16.0); White Blood Count 9.5 X10*3/uL (4.8-10.8)
[2024-06-29 09:05] LABS: Anion Gap 13 (12-20); Blood Urea Nitrogen 5 mg/dL (9-16); Calcium 8.9 mg/dL (8.4-10.2); Carbon Dioxide 25 mmol/L (22-29); Chloride 106 mmol/L (96-108); Creatinine Clr Calc Pharmacy 151.2; Estimated Glomerular Filt Rate > 60; Glucose Random 96 mg/dL (60-115); Potassium 3.1 mmol/L (3.3-5.1); Sodium 141 mmol/L (135-145)
--- NOTE | 2024-06-29 09:23 | P.PNIM_ITS ---
Subjective Subjective Date of Service: 06/29/24 Interval History: feels better, pain is controlled, tolerating liquid diet Physical Exam 2 Vital Signs: Vital Signs: Last Vital Signs Temp 98.3 F 06/29/24 08:00 Pulse 68 06/29/24 08:00 Resp 16 06/29/24 08:00 BP 143/81 H 06/29/24 08:00 Pulse Ox 97 06/29/24 08:00 O2 Del Method Room Air 06/29/24 08:00 O2 Flow Rate 99 06/26/24 16:15 BMI result Body Mass Index 37.4 General: AO X 3, no acute distress Resp: CTA bilateral CVS: S1,S2,RRR GI: +BS, NT, no distention, ostomy in place, snow drain with serosanguinous output Skin: No rash Neuro: motor grossly intact Psych: appropriate affect Objective Data Active Medications Amlodipine Besylate (Amlodipine Besylate 5 Mg Tablet) 5 mg PO DAILY [facility]; Protocol Last Admin: 06/29/24 08:48 Dose: 5 mg Documented By: MIRI Calcium Carbonate (Calcium Carbonate 750 Mg Tab.Chew) 750 mg PO Q4H PRN PRN Reason: Heartburn Enoxaparin Sodium (Enoxaparin Sodium 40 Mg/0.4 Ml Syringe) 40 mg SUBCUT Q24H [facility] Last Admin: 06/28/24 21:11 Dose: 40 mg Documented By: KAYE Hydromorphone HCl (Hydromorphone Hcl 1 Mg/Ml Syringe) 1 mg IVPUSH Q4H PRN; Protocol PRN Reason: Pain, Severe (Pain Scale 7-10) Last Admin: 06/26/24 17:34 Dose: 1 mg Documented By: GAIL Piperacillin Sod/Tazobactam (Sod 3.375 gm/ Sodium Chloride) 50 mls @ 100 mls/hr IV Q6H [facility] Last Admin: 06/29/24 08:58 Dose: 100 mls/hr Documented By: MIRI Acetaminophen (Ofirmev) 1,000 mg in 100 mls @ 400 mls/hr IV Q6H [facility] Last Admin: 06/29/24 08:50 Dose: 400 mls/hr Documented By: MIRI Ketorolac Tromethamine (Ketorolac Tromethamine 30 Mg/Ml Vial) 30 mg IVPUSH Q6H [facility] Stop: 07/01/24 17:11 Last Admin: 06/29/24 05:42 Dose: 30 mg Documented By: KAYE Lisinopril (Lisinopril 10 Mg Tablet) 10 mg PO DAILY [facility]; Protocol Last Admin: 06/29/24 08:48 Dose: 10 mg Documented By: MRII Magnesium Hydroxide (Milk Of Magnesia 30 Ml Oral.Susp) 30 ml PO DAILY PRN PRN Reason: Constipation Melatonin (Melatonin 3 Mg Tablet) 6 mg PO BEDTIME PRN PRN Reason: Insomnia Last Admin: 06/25/24 21:05 Dose: 6 mg Documented By: KAYE Ondansetron HCl (Ondansetron Hcl 4 Mg/2 Ml Vial) 4 mg IVPUSH Q6H PRN PRN Reason: Nausea and Vomiting Oxycodone HCl (Oxycodone Hcl Immed Release 5 Mg Tablet) 5 mg PO Q4H PRN PRN Reason: Pain, Moderate(Pain Scale 4-6) Last Admin: 06/26/24 19:48 Dose: 5 mg Documented By: KAYE Sodium Chloride (0.9 % Sodium Chloride Flush 3 Ml Syringe) 3 ml IVFLUSH [facility] Last Admin: 06/28/24 23:24 Dose: 3 ml Documented By: KAYE Labs 06/29/24 08:45 06/29/24 08:45 Labs: Laboratory Results - last 24 hr 06/28/24 06/29/24 17:12 08:45 MCV 80.6 MCH 26.9 L MCHC 33.3 RDW 13.9 Plt Count 330 MPV 9.1 L Absolute Nucleated RBC 0.000 Nucleated RBC % (auto) 0.0 Anion Gap 15 13 Estim Creat Clear Calc 151.2 Estimated GFR > 60 Random Glucose 96 Calcium 8.9 Assessment and Plan (1) Status post Kassy procedure: Status: Acute (2) Diverticulitis: Status: Acute Assessment and Plan: 33 y/o M with hx history significant obesity, elevated blood pressure readings, nonalcoholic fatty liver disease-came to ed with abdominal pain-admitted for acute diverticulitis with microperforation sepsis sec to acute diverticulitis with microperforation, repeat CT on 06/26 showed progression of perforation, wbc now normal s/p pathak procedure, laporascopic colon resection w/ ostomy on 06/26, doing well continue Zosyn, when ready for dc can transition to oral Augmentin pain control dilauid, oxy and ketorolac diet advancement per surgery HTN--previously not on meds -start Norvasc 5 on 06/27. -add lisinopril 10 06/28 -bp is better Hypokalemia, still low, replace with po dvt prophylax: s/c lovenox need for Inpt: post op care for complicated diverticulitis with perforation and needing surgery out of bed, ambulate (3) Perforation bowel: Status: Acute Quality Stroke Does the patient have a stroke diagnosis?: No VTE Prior VTE?: No VTE Risk Level:: Medical - moderate - high VTE Device Contraindication: N/A - Device Ordered VTE Drug Contraindication: N/A - Med Ordered
[2024-06-29] MEDS: Potassium Chloride Packet 20 MEQ PACKET 40 MEQ PO (10:13)
--- NOTE | 2024-06-29 14:28 | P.PNGS_ITS ---
Subjective Subjective Date of Service: 06/29/24 Interval history: Patient is doing well. No complaints he has been walking around. He has some gas and little bit of liquid stool in his bag. Denies any fever Physical Exam 2 Vital Signs: Vital Signs: Last Vital Signs Temp 98.3 F 06/29/24 08:00 Pulse 68 06/29/24 08:00 Resp 16 06/29/24 08:00 BP 143/81 H 06/29/24 08:00 Pulse Ox 97 06/29/24 08:00 O2 Del Method Room Air 06/29/24 08:00 O2 Flow Rate 99 06/26/24 16:15 BMI result Body Mass Index 37.4 GI: Other: Abdomen is soft incision is covered and intact. Ostomy with some liquid stool and gas present Objective Data Active Medications Amlodipine Besylate (Amlodipine Besylate 5 Mg Tablet) 5 mg PO DAILY [facility]; Protocol Last Admin: 06/29/24 08:48 Dose: 5 mg Documented By: MIRI Calcium Carbonate (Calcium Carbonate 750 Mg Tab.Chew) 750 mg PO Q4H PRN PRN Reason: Heartburn Enoxaparin Sodium (Enoxaparin Sodium 40 Mg/0.4 Ml Syringe) 40 mg SUBCUT Q24H [facility] Last Admin: 06/28/24 21:11 Dose: 40 mg Documented By: KAYE Hydromorphone HCl (Hydromorphone Hcl 1 Mg/Ml Syringe) 1 mg IVPUSH Q4H PRN; Protocol PRN Reason: Pain, Severe (Pain Scale 7-10) Last Admin: 06/26/24 17:34 Dose: 1 mg Documented By: GAIL Piperacillin Sod/Tazobactam (Sod 3.375 gm/ Sodium Chloride) 50 mls @ 100 mls/hr IV Q6H [facility] Last Infusion: 06/29/24 09:58 Dose: Infused Documented By: MIRI Acetaminophen (Ofirmev) 1,000 mg in 100 mls @ 400 mls/hr IV Q6H [facility] Last Infusion: 06/29/24 09:26 Dose: Infused Documented By: ROOSEVELT Ketorolac Tromethamine (Ketorolac Tromethamine 30 Mg/Ml Vial) 30 mg IVPUSH Q6H [facility] Stop: 07/01/24 17:11 Last Admin: 06/29/24 12:34 Dose: 30 mg Documented By: MIRI Lisinopril (Lisinopril 10 Mg Tablet) 10 mg PO DAILY [facility]; Protocol Last Admin: 06/29/24 08:48 Dose: 10 mg Documented By: MIRI Magnesium Hydroxide (Milk Of Magnesia 30 Ml Oral.Susp) 30 ml PO DAILY PRN PRN Reason: Constipation Melatonin (Melatonin 3 Mg Tablet) 6 mg PO BEDTIME PRN PRN Reason: Insomnia Last Admin: 06/25/24 21:05 Dose: 6 mg Documented By: KAYE Ondansetron HCl (Ondansetron Hcl 4 Mg/2 Ml Vial) 4 mg IVPUSH Q6H PRN PRN Reason: Nausea and Vomiting Oxycodone HCl (Oxycodone Hcl Immed Release 5 Mg Tablet) 5 mg PO Q4H PRN PRN Reason: Pain, Moderate(Pain Scale 4-6) Last Admin: 06/26/24 19:48 Dose: 5 mg Documented By: KAYE Sodium Chloride (0.9 % Sodium Chloride Flush 3 Ml Syringe) 3 ml IVFLUSH [facility] Last Admin: 06/29/24 09:57 Dose: Not Given Documented By: MIRI Non-Admin Reason: Previously Administered Labs 06/29/24 08:45 06/29/24 08:45 Labs: Laboratory Results - last 24 hr 06/28/24 06/29/24 17:12 08:45 MCV 80.6 MCH 26.9 L MCHC 33.3 RDW 13.9 Plt Count 330 MPV 9.1 L Absolute Nucleated RBC 0.000 Nucleated RBC % (auto) 0.0 Anion Gap 15 13 Estim Creat Clear Calc 151.2 Estimated GFR > 60 Random Glucose 96 Calcium 8.9 Procedures Date of Service Date of Service: 06/29/24 Progress Note: A&P Assessment and plan (1) Status post Kassy procedure: Status: Acute Assessment and Plan: 33-year-old male status post sigmoid colectomy /Kassy's procedure for perforated diverticulitis doing well. Plan to continue slow advancement of his diet ambulation and IV antibiotics. Consider discharge tomorrow Time Spent With Patient Time: Total time managing care of this patient today ____ minutes. Quality Stroke Does the patient have a stroke diagnosis?: No VTE Prior VTE?: No VTE Risk Level:: Medical - moderate - high VTE Device Contraindication: N/A - Device Ordered VTE Drug Contraindication: N/A - Med Ordered
[2024-06-29 16:00] VITALS: BP 144/88; PULSE 66; RESP 16; TEMP 36.8; O2SAT 99
[2024-06-29 20:00] VITALS: BP 149/88; PULSE 75; RESP 16; TEMP 36.4; O2SAT 99
[2024-06-29] MEDS: Enoxaparin Sodium 40 MG/0.4 ML SYRINGE SUBCUT (22:11)
[2024-06-29] MEDS: 0.9 % Sodium Chloride Flush 3 ML SYRINGE IVFLUSH (22:15)
[2024-06-30 03:12] VITALS: BP 138/66; PULSE 80; RESP 18; TEMP 36.3; O2SAT 99
[2024-06-30] MEDS: Piperacillin Sodium/Tazobactam 3.375 GM in 0.9 % Sodium Chloride 50 ML IV ×2 (04:15→08:47)
--- NOTE | 2024-06-30 06:54 | P.PNIM_ITS ---
Subjective Subjective Date of Service: 06/30/24 Interval History: pain is controlled, no issues with liquid diet Physical Exam 2 Vital Signs: Vital Signs: Last Vital Signs Temp 97.3 F 06/30/24 03:12 Pulse 80 06/30/24 03:12 Resp 18 06/30/24 03:12 BP 138/66 06/30/24 03:12 Pulse Ox 99 06/30/24 03:12 O2 Del Method Room Air 06/29/24 20:00 O2 Flow Rate 99 06/26/24 16:15 BMI result Body Mass Index 37.4 General: AO X 3, no acute distress Resp: CTA bilateral CVS: S1,S2,RRR GI: +BS, NT, no distention, ostomy in place, snow drain with serosanguinous output Skin: No rash Neuro: motor grossly intact Psych: appropriate affect Objective Data Active Medications Acetaminophen (Acetaminophen 325 Mg Tablet) 650 mg PO Q6H PRN PRN Reason: Pain, Mild (Pain Scale 1-3) Amlodipine Besylate (Amlodipine Besylate 5 Mg Tablet) 5 mg PO DAILY [facility]; Protocol Last Admin: 06/29/24 08:48 Dose: 5 mg Documented By: MIRI Calcium Carbonate (Calcium Carbonate 750 Mg Tab.Chew) 750 mg PO Q4H PRN PRN Reason: Heartburn Enoxaparin Sodium (Enoxaparin Sodium 40 Mg/0.4 Ml Syringe) 40 mg SUBCUT Q24H [facility] Last Admin: 06/29/24 22:11 Dose: 40 mg Documented By: RASHID Hydromorphone HCl (Hydromorphone Hcl 1 Mg/Ml Syringe) 1 mg IVPUSH Q4H PRN; Protocol PRN Reason: Pain, Severe (Pain Scale 7-10) Last Admin: 06/26/24 17:34 Dose: 1 mg Documented By: GAIL Piperacillin Sod/Tazobactam (Sod 3.375 gm/ Sodium Chloride) 50 mls @ 100 mls/hr IV Q6H [facility] Last Infusion: 06/30/24 04:52 Dose: Infused Documented By: RASHID Lisinopril (Lisinopril 10 Mg Tablet) 10 mg PO DAILY [facility]; Protocol Last Admin: 06/29/24 08:48 Dose: 10 mg Documented By: MIRI Magnesium Hydroxide (Milk Of Magnesia 30 Ml Oral.Susp) 30 ml PO DAILY PRN PRN Reason: Constipation Melatonin (Melatonin 3 Mg Tablet) 6 mg PO BEDTIME PRN PRN Reason: Insomnia Last Admin: 06/25/24 21:05 Dose: 6 mg Documented By: KAYE Ondansetron HCl (Ondansetron Hcl 4 Mg/2 Ml Vial) 4 mg IVPUSH Q6H PRN PRN Reason: Nausea and Vomiting Oxycodone HCl (Oxycodone Hcl Immed Release 5 Mg Tablet) 5 mg PO Q4H PRN PRN Reason: Pain, Moderate(Pain Scale 4-6) Last Admin: 06/26/24 19:48 Dose: 5 mg Documented By: KAYE Sodium Chloride (0.9 % Sodium Chloride Flush 3 Ml Syringe) 3 ml IVFLUSH QSHIFT [facility] Last Admin: 06/29/24 22:15 Dose: 3 ml Documented By: RASHID Labs 06/29/24 08:45 06/29/24 08:45 Labs: Laboratory Results - last 24 hr 06/29/24 08:45 MCV 80.6 MCH 26.9 L MCHC 33.3 RDW 13.9 Plt Count 330 MPV 9.1 L Absolute Nucleated RBC 0.000 Nucleated RBC % (auto) 0.0 Anion Gap 13 Estim Creat Clear Calc 151.2 Estimated GFR > 60 Random Glucose 96 Calcium 8.9 Assessment and Plan (1) Status post Kassy procedure: Status: Acute (2) Diverticulitis: Status: Acute Assessment and Plan: 33 y/o M with hx history significant obesity, elevated blood pressure readings, nonalcoholic fatty liver disease-came to ed with abdominal pain-admitted for acute diverticulitis with microperforation sepsis sec to acute diverticulitis with microperforation, repeat CT on 06/26 showed progression of perforation, s/p pathak procedure, laporascopic colon resection w/ ostomy on 06/26, doing well continue Zosyn, when ready for dc can transition to oral Augmentin advance to regular diet HTN--previously not on meds -start Norvasc 5 on 06/27. -add lisinopril 10 06/28 -bp is better Hypokalemia, replaced. dvt prophylax: s/c lovenox need for Inpt: post op care for complicated diverticulitis with perforation and needing surgery out of bed, ambulate (3) Perforation bowel: Status: Acute Quality Stroke Does the patient have a stroke diagnosis?: No VTE Prior VTE?: No VTE Risk Level:: Medical - moderate - high VTE Device Contraindication: N/A - Device Ordered VTE Drug Contraindication: N/A - Med Ordered
--- NOTE | 2024-06-30 07:16 | PM.DS ---
DS: Providers Provider Date of Service: 06/30/24 Date of admission: 06/22/24 18:28 Date of discharge: 06/30/24 Primary care physician: Willard Lester PA-C Consults: 06/22/24 17:13 Consult to General Surgery Stat Consulting Provider: [facility] [place] [facility] Reason for consultation: microperf secondary to complicated diverticulitis Has provider been notified: Yes 06/22/24 18:05 Consult to General Surgery Routine Consulting Provider: [facility] [place] [facility] Reason for consultation: diverticulitis with microperf Has provider been notified: No 06/26/24 11:48 Consult to Ostomy Care Routine DS: Diagnosis Discharge Diagnosis (1) Status post Kassy procedure: Status: Acute (2) Diverticulitis: Status: Acute (3) Perforation bowel: Status: Resolved DS: Summary Hospital Course Hospital Course: admission hpi Chief Complaint: Diverticulitis 33 y/o M with hx history significant obesity, elevated blood pressure readings, nonalcoholic fatty liver disease-came to ed with abdominal pain. Patient states that the pain started yesterday after having a bowel movement and then today, it got significantly worse. he says this is first time he has this pain, cta bd showed -suspicious for acute diverticulitis with contained microperforation. There is extension of the inflammatory process into the presacral space with small volume retroperitoneal free air also noted. No discrete drainable abscess collection is seen.As per ED patient is requiring lot of IV pain medication to control pain, also discussed with surgery by ED recommended medical on patient for IV antibiotics, we have placed surgical consult also. No leukocytosis, no fever, mild hypokalemia. Patient denies any nausea, vomiting, fever, chills, chest pain, shortness of breath, back pain, night sweats, pain with urination, increased urinary frequency, increased urinary urgency, blood in urine or stool, recent trauma or falls, bowel incontinence, bladder incontinence, or any other complaints at this time. hospital course: Patient was admitted for acute diverticulitis with microperforation and initially treated with IV antibioitcs (Zosyn), unfortunately he continues to have pain, especially once was initiiated on liquid diet, so a CT was repeated and showed progression of the diverticulitis and perforation and so he underwent urgent Gabriel procedure with colon resection and ostomy. Post operatively has done well, with pain under good control, WBC has trended down to normal. Diet has been advanced succesfully. He will be discharged to complete a total of 14 days of antibiotics with transition to Augmentin. HTN--his blood pressure were high, initially thought to be related to pain, but has been persistently high consitent with untreated HTN, he is started on Norvasc 5 and Lisinopril 10 with good controll, should follow up with his PCP for further med adjustement. Time Attestation Discharge Coordination Time (in mins): 35 Quality: Safe Use of Opioids Does Pt have an Active Cancer Diagnosis on the Problem List?: No Quality: Stroke Does the patient have a stroke diagnosis?: No Physical Exam Vital Signs: Vital Signs: Last Vital Signs Temp 97.3 F 06/30/24 03:12 Pulse 80 06/30/24 03:12 Resp 18 06/30/24 03:12 BP 138/66 06/30/24 03:12 Pulse Ox 99 06/30/24 03:12 O2 Del Method Room Air 06/29/24 20:00 O2 Flow Rate 99 06/26/24 16:15 BMI result Body Mass Index 37.4 DS: Data Data Completed and Pending Completed studies during hospitalization [Text1]: Pending at discharge 06/26/24 14:39 Surgical [PTH] Routine Labs on day of discharge: Laboratory Results - last 24 hr 06/29/24 08:45 WBC 9.5 RBC 4.13 L Hgb 11.1 L Hct 33.3 L MCV 80.6 MCH 26.9 L MCHC 33.3 RDW 13.9 Plt Count 330 MPV 9.1 L Absolute Nucleated RBC 0.000 Nucleated RBC % (auto) 0.0 Sodium 141 Potassium 3.1 L Chloride 106 Carbon Dioxide 25 Anion Gap 13 BUN 5 L Creatinine 0.80 Estim Creat Clear Calc 151.2 Estimated GFR > 60 Random Glucose 96 Calcium 8.9 Discharge Plan Discharge Anticipated Discharge Date/Time: 06/30/24 14:15 Patient Disposition: Home Health Service Discharge Diagnosis: acute perforated diverticulitis Referrals: [facility] [Outside] Willard Lester PA-C [Primary Care Provider] - 1 Week Orlando Felder MD [Physician] - 2 Weeks Discharge Medications: New amlodipine 5 mg Tablet 5 mg PO DAILY Qty: 90 0RF Protocol: Hold for SBP< HOLD for SBP < : 90 lisinopril 10 mg Tablet 10 mg PO DAILY Qty: 90 0RF Protocol: Hold for SBP< HOLD for SBP < : 90 oxycodone 5 mg Tablet 5 mg PO Q6H PRN (Reason: Pain, Moderate(Pain Scale 4-6)) Qty: 20 0RF Rx Instructions: Partial Fill upon patient request. amoxicillin-pot clavulanate 875-125 mg tablet 1 tab PO BID Qty: 14 0RF Continued acetaminophen [Tylenol] 325 mg Tablet 650 mg PO Q6H PRN (Reason: Pain) (DME) blood pressure test kit-large Kit See Rx Instructions .Route Qty: 1 0RF Rx Instructions: To take blood pressure once a day Discharge Orders: Discharge Order (Routine); Ordered 06/30/24 Ordered By: Isiah Patel Diet: Advance to usual diet Activity on Discharge: As tolerated Stand Alone Forms: Patient Portal Discharge page Print Language: Greek Activity Restrictions/Additional Instructions: If the incision area is tender, you may apply an ice pack for short intervals (No more than 20 minutes on, followed by at least 20 minutes off). Do not apply heat. Do not use creams, lotions, or topical antibiotics. These can cause infection or allergic reaction. Ok to shower. You have judi closing your incision and these will be removed approximately 10-14 days after surgery. NO HEAVY LIFTING (>10lbs) or strenuous activity. Follow up in office in [address] Felder. ([phone]) Colostomy care: change appliance every 3-4 days and as needed. Call Your Doctor If: -Your temperature exceeds 101.5? F -You experience excessive pain or swelling -You have an unexpected reaction to medication -You have excessive bleeding -You experience continued vomiting/nausea -Your incision begins to separate -Your incision shows signs of infection such as increased redness, swelling, excessive pain, drainage (light blood or clear fluid is normal) or heat Take Augmentin as directeed Take Norvasc and Lisinopril for high blood pressure and follow with your doctor in 1 to 2 weeks Care Plan Goals: recovery from diverticulitis Health Concerns: perforated diverticulitis HTN Plan of Treatment: see above Assessment: see abovfe Discharge Date/Time: 06/30/24 15:10
[2024-06-30 07:53] VITALS: BP 145/88; PULSE 69; RESP 16; TEMP 36.4; O2SAT 99
[2024-06-30 08:03] LABS: Anion Gap 14 (12-20); Blood Urea Nitrogen 4 mg/dL (9-16); Calcium 9.3 mg/dL (8.4-10.2); Carbon Dioxide 27 mmol/L (22-29); Chloride 105 mmol/L (96-108); Estimated Glomerular Filt Rate > 60; Glucose Random 91 mg/dL (60-115); Magnesium 2.3 mg/dL (1.6-2.6); Potassium 3.4 mmol/L (3.3-5.1); Sodium 143 mmol/L (135-145)
[2024-06-30] MEDS: amLODIPine Besylate 5 MG TABLET PO (08:48)
[2024-06-30] MEDS: lisinopriL 10 MG TABLET PO (08:48)
[2024-06-30] MEDS: Acetaminophen 325 MG TABLET 650 MG PO (08:49)
[2024-06-30] MEDS: 0.9 % Sodium Chloride Flush 3 ML SYRINGE IVFLUSH (08:56)
--- NOTE | 2024-06-30 13:08 | P.PNGS_ITS ---
Subjective Subjective Date of Service: 06/30/24 Interval history: pt looks great walking up and down no problems, tolerating po diet and good stool and gas in bag incision looks good and snow not putting out much Physical Exam 2 Vital Signs: Vital Signs: Last Vital Signs Temp 97.6 F 06/30/24 07:53 Pulse 69 06/30/24 07:53 Resp 16 06/30/24 07:53 BP 145/88 H 06/30/24 07:53 Pulse Ox 99 06/30/24 07:53 O2 Del Method Room Air 06/30/24 07:53 O2 Flow Rate 99 06/26/24 16:15 BMI result Body Mass Index 37.4 Const: General: cooperative, healthy appearing, comfortable and no acute distress Orientation/consciousness: patient oriented x3 Resp: Effort & Inspection: normal respiratory effort Auscultation: clear to auscultation bilaterally GI: Other: abdomen is soft nontender nondistended incisions look good ostomy functioning and looks fine snow drain removed Skin: General skin exam: no rashes or lesions noted Neuro: General: patient oriented x3 Objective Data Active Medications Acetaminophen (Acetaminophen 325 Mg Tablet) 650 mg PO Q6H PRN PRN Reason: Pain, Mild (Pain Scale 1-3) Last Admin: 06/30/24 08:49 Dose: 650 mg Documented By: MIRI Amlodipine Besylate (Amlodipine Besylate 5 Mg Tablet) 5 mg PO DAILY [facility]; Protocol Last Admin: 06/30/24 08:48 Dose: 5 mg Documented By: MIRI Calcium Carbonate (Calcium Carbonate 750 Mg Tab.Chew) 750 mg PO Q4H PRN PRN Reason: Heartburn Enoxaparin Sodium (Enoxaparin Sodium 40 Mg/0.4 Ml Syringe) 40 mg SUBCUT Q24H [facility] Last Admin: 06/29/24 22:11 Dose: 40 mg Documented By: RASHID Hydromorphone HCl (Hydromorphone Hcl 1 Mg/Ml Syringe) 1 mg IVPUSH Q4H PRN; Protocol PRN Reason: Pain, Severe (Pain Scale 7-10) Last Admin: 06/26/24 17:34 Dose: 1 mg Documented By: GAIL Piperacillin Sod/Tazobactam (Sod 3.375 gm/ Sodium Chloride) 50 mls @ 100 mls/hr IV Q6H [facility] Last Infusion: 06/30/24 09:33 Dose: Infused Documented By: ROOSEVELT Lisinopril (Lisinopril 10 Mg Tablet) 10 mg PO DAILY [facility]; Protocol Last Admin: 06/30/24 08:48 Dose: 10 mg Documented By: MIRI Magnesium Hydroxide (Milk Of Magnesia 30 Ml Oral.Susp) 30 ml PO DAILY PRN PRN Reason: Constipation Melatonin (Melatonin 3 Mg Tablet) 6 mg PO BEDTIME PRN PRN Reason: Insomnia Last Admin: 06/25/24 21:05 Dose: 6 mg Documented By: KAYE Ondansetron HCl (Ondansetron Hcl 4 Mg/2 Ml Vial) 4 mg IVPUSH Q6H PRN PRN Reason: Nausea and Vomiting Oxycodone HCl (Oxycodone Hcl Immed Release 5 Mg Tablet) 5 mg PO Q4H PRN PRN Reason: Pain, Moderate(Pain Scale 4-6) Last Admin: 06/26/24 19:48 Dose: 5 mg Documented By: KAYE Sodium Chloride (0.9 % Sodium Chloride Flush 3 Ml Syringe) 3 ml IVFLUSH QSHIFT [facility] Last Admin: 06/30/24 08:56 Dose: 3 ml Documented By: MIRI Labs 06/29/24 08:45 06/30/24 06:17 Labs: Laboratory Results - last 24 hr 06/30/24 06:17 Hold Purple Top SEE NOTE Anion Gap 14 Estim Creat Clear Calc 144.0 Estimated GFR > 60 Random Glucose 91 Calcium 9.3 Magnesium 2.3 Procedures Date of Service Date of Service: 06/30/24 Progress Note: A&P Assessment and plan (1) Status post Kassy procedure: Status: Acute Assessment and Plan: pt doing well s/p Kassy for perf tics with abscess - wbc normal, pt toelrating po and walking and moving well. snow drain dc but will dc home on a few more days of po antibiotics ostomy care to be done at home and pt will have VNA help and order supplies can sponge bath around the colostomy bag for now and get surgical incisions wet after tomorrow - take down snow drain bandage tomorrow pt to follow up in the office with DR Davis in one week. Time Spent With Patient Time: Total time managing care of this patient today ____ minutes. Quality Stroke Does the patient have a stroke diagnosis?: No VTE Prior VTE?: No VTE Risk Level:: Medical - moderate - high VTE Device Contraindication: N/A - Device Ordered VTE Drug Contraindication: N/A - Med Ordered
--- NOTE | 2024-06-30 14:18 | W.MHC.F2F ---
Service Date Service Date: 06/30/24 Encounter Date of encounter: 06/30/24 Reasons for Services Signs and symptoms assessed: Perforated diverticulitis had surgery and now has new ostomy Reason for mcfp: wound care and teach disease management Homebound: Leaving the home is medically contraindicated at this time without the asist of a device and/or another person due th the listed conditions above and below. Reason homebound: weakness related to hospital stay and unable to drive Homebound supporting statement: homebound due to major abdominal surgery and now with ostomy, slowly recovery not able to drive a the moment need more education on ostomy and therefore needs the assistance of another person Certification: Based on the above findings, I certify that this patient is confined to the home and needs intermittent mcfp care, physical therapy and/or speech therapy, or continues to need occupational therapy. The patient is under my care, and I have initiated the establishment of the plan of care. The patient will be followed by a physician who will periodically review the plan of care. Time Spent With Patient Time: Total time managing care of this patient today ____ minutes.
--- NOTE | 2024-06-30 15:00 | MHC.CM.PN ---
PT WILL DC HOME TODAY WITH [facility] FOR NEW OSTOMY CARE [facility] AWARE OF DC PT WILL ARRANGE TRANSPORTATION
== END 2024-06-30 15:10 | disposition home health service (06) | DRG 231 ==
LOC: HO.ED 18:04 → HO.EDOVER 18:51 → HO.S3 19:22
PROVIDERS: Physician Assistant Medical; Physician Assistant Surgical; Student in an Organized Health Care Education/Training Program; Surgery; Admitting Provider Internal Medicine; Emergency Provider Emergency Medicine Emergency Medical Services; PCP Physician Assistant; Visit Provider Internal Medicine
PROC: 0DTE0ZZ Resection of Large Intestine, Open Approach (ICD-10-PCS; principal; 2024-06-26 11:30)
DX: K57.20 Diverticulitis of large intestine with perforation and abscess without bleeding (principal); A41.9 Sepsis, unspecified organism; E66.9 Obesity, unspecified; Z68.37 Body mass index [BMI] 37.0-37.9, adult; G89.18 Other acute postprocedural pain; I10 Essential (primary) hypertension; K66.0 Peritoneal adhesions (postprocedural) (postinfection); K76.0 Fatty (change of) liver, not elsewhere classified; E87.6 Hypokalemia; Z20.822 Contact with and (suspected) exposure to COVID-19; Z87.891 Personal history of nicotine dependence
CPT/HCPCS: 0241U; 36415; 74177; 80048; 80051; 80053; 81003; 82947; 83605; 83735; 85025; 85027; 86850; 86900; 86901; 88307; 93005; 99285; C1758; J0131; J0665; J1100; J1170; J1596; J1650; J1885; J2250; J2270; J2405; J2470; J2543; J2704; J2795; J3010; J3480; J7120; Q9967

== ENCOUNTER → 2024-06-22 18:28 | Outpatient (BNV) | payer MEDICAID, SELFPAY | PROVIDERS: Admitting Provider Internal Medicine; Emergency Provider Emergency Medicine Emergency Medical Services; Visit Provider Surgery | DX: Z93.3 Colostomy status (principal); K57.92 Diverticulitis of intestine, part unspecified, without perforation or abscess without bleeding; K63.1 Perforation of intestine (nontraumatic) | CPT/HCPCS: 44206; 99024; 99222; 99232; 99499 ==

== ENCOUNTER → 2024-06-22 18:28 | Outpatient (BNV) | payer OTHER, SELFPAY | PROVIDERS: Admitting Provider Internal Medicine; Emergency Provider Emergency Medicine Emergency Medical Services; Visit Provider Internal Medicine | DX: K57.80 Diverticulitis of intestine, part unspecified, with perforation and abscess without bleeding (principal); Z93.3 Colostomy status | CPT/HCPCS: 99222; 99232; 99239; 99499; G0180 ==

== ENCOUNTER 2024-07-08 09:41 | Outpatient (AMB) | payer MEDICAID, SELFPAY ==
--- NOTE | 2024-07-08 09:43 | A.OFFVIS_ITS ---
Vital Signs 07/08/24 09:54 Height 5 ft 7 in Weight 220 lb BMI 34.5 BP 141/87 H Blood Pressure Location Rt brachial Position Sitting Pulse 89 Intake Visit Reasons: POST OP-Hand assisted laparoscopic anterior Intake Note: This patient presents for post-op assessment status post Hand assisted laparoscopic anterior resection of the rectosigmoid, extensive lysis of adhesions, end-colostomy from the left colon. Pt c/o; reports no complaints pertaining to surgery. Space Planner Required: No Accompanied by: Other Relationship Allergies No Known Allergies [No Known Allergies*] Allergy (Verified 07/08/24 09:53) HPI HPI POST OP-Hand assisted laparoscopic anterior: Details: 33-year-old male here for a postop visit. He had undergone anterior resection, hand assisted laparoscopic, for worsening diverticulitis last June 26, 2024. He did well postoperatively. He was discharged on postop day number 5 He says that he is doing well at home. He has good oral intake. His stoma has been functioning well. [facility] Medical History Fatty liver disease, nonalcoholic Surgical History Hx of surgical procedure (~06/26/24) No pertinent past surgical history Family History Father Diabetes Mother No problems noted. Social History Household Members: Other Household Members Other:: mom Housing: Apartment Housing Other:: living with parents Are you a primary child caregiver private home to a significant other at home: No Do you presently have visiting nurse or other home services: No Alcohol intake: former Patient Tobacco Use Status: Former Tobacco user e-Cigarette/Vaping Use: Never Used Second Hand Smoke Exposure: No service: No Current occupational status: disabled Cognitive needs: No Hearing needs: No Vision needs: Yes Review of Systems Const Denies chills and Denies fever(s) Resp Denies cough GI Details: Has colostomy, functioning well Physical Exam Vital Signs: Last Vital Signs Pulse 89 07/08/24 09:54 BP 141/87 H 07/08/24 09:54 BMI result Body Mass Index 34.5 Const General: comfortable and no acute distress Resp Effort & Inspection: normal respiratory effort GI Other: Abdomen is soft, midline incision and other incisions well healed, judi intact, colonoscopy functioning well Assessment & Plan Assessment & Plan (1) Diverticulitis: Code(s): K57.92 - Diverticulitis of intestine, part unspecified, without perforation or abscess without bleeding Category: Medical Plan: Status post anterior resection. He is doing very well. All incisions are well healed. I removed all his skin judi Stoma is functioning well. I will see him again in the office in about a month for another postop visit. I advised him on the benefits of weight loss for now. Coding Level of Care Code Global (21644) Diagnoses Diverticulitis K57.92
[2024-07-08 09:54] VITALS: BP 141/87; PULSE 89; BMI 34.5
== END 2024-07-08 09:57 | disposition home or self-care (01) ==
PROVIDERS: PCP Physician Assistant; Visit Provider Surgery
DX: K57.92 Diverticulitis of intestine, part unspecified, without perforation or abscess without bleeding (principal)
CPT/HCPCS: 99024

== ENCOUNTER → 2024-07-08 09:41 | Outpatient (BNVA) | payer MEDICAID, SELFPAY | PROVIDERS: PCP Physician Assistant; Visit Provider Surgery | DX: Z48.815 Encounter for surgical aftercare following surgery on the digestive system (principal); Z87.19 Personal history of other diseases of the digestive system; Z98.890 Other specified postprocedural states | CPT/HCPCS: 99212 ==

== ENCOUNTER 2024-08-07 08:49 | Outpatient (AMB) | payer MEDICAID, SELFPAY ==
--- NOTE | 2024-08-07 09:24 | MHC.OFFVIS ---
Vital Signs 08/07/24 09:25 Height 5 ft 7 in Weight 213 lb 8 oz BMI 33.4 BP 154/78 H Blood Pressure Location Rt brachial Position Sitting Pulse 78 Intake Visit Reasons: 1 month s/p Hand assisted laparoscopic anterior Intake Note: This patient presents for one month post-op follow-up status post Hand assisted laparoscopic anterior resection of the rectosigmoid. Pt c/o; reports no complaints at this time. Real Estate Inspector Required: No Accompanied by: Self / Same As Patient Allergies No Known Allergies [No Known Allergies*] Allergy (Verified 08/07/24 09:32) HPI HPI 1 month s/p Hand assisted laparoscopic anterior: Details: He continues to do well after anterior resection for severe diverticular abscess in June,. He denies problems with this colostomy. He has good oral intake. [facility] Medical History Fatty liver disease, nonalcoholic Surgical History Hx of surgical procedure (~06/26/24) No pertinent past surgical history Family History Father Diabetes Mother No problems noted. Social History Household Members: Other Household Members Other:: mom Housing: Apartment Housing Other:: living with parents Are you a primary career information specialist to a significant other at home: No Do you presently have visiting nurse or other home services: No Alcohol intake: former Patient Tobacco Use Status: Former Tobacco user e-Cigarette/Vaping Use: Never Used Second Hand Smoke Exposure: No service: No Current occupational status: disabled Cognitive needs: No Hearing needs: No Vision needs: Yes Review of Systems Const Denies chills and Denies fever(s) Card Denies chest pain and Denies chest pain at rest GI Denies abdominal pain Physical Exam Vital Signs: Last Vital Signs Pulse 78 08/07/24 09:25 BP 154/78 H 08/07/24 09:25 BMI result Body Mass Index 33.4 Const General: comfortable and no acute distress Resp Effort & Inspection: normal respiratory effort GI Other: Colostomy functioning well, midline incisions and other incisions are well healed Assessment & Plan Assessment & Plan (1) Status post Kassy procedure: Code(s): Z93.3 - Colostomy status Category: Surgical Plan: He is doing very well with his colostomy in place. He says he has lost about 10 lb since the surgery I had but advised him on the benefits of weight loss. I will see him again in the office in about 2 months. I will schedule him for a colonoscopy and then reversal eventually He understands the plan and is comfortable with this. We will also help him with applies for his colostomy appliance. Coding Level of Care Code Global (67002) Diagnoses Status post Kassy procedure Z93.3
[2024-08-07 09:25] VITALS: BP 154/78; PULSE 78; BMI 33.4
== END 2024-08-07 10:17 | disposition home or self-care (01) ==
PROVIDERS: PCP Physician Assistant; Visit Provider Surgery
DX: Z93.3 Colostomy status (principal)
CPT/HCPCS: 99024

== ENCOUNTER → 2024-08-07 08:49 | Outpatient (BNVA) | payer MEDICAID, SELFPAY | PROVIDERS: PCP Physician Assistant; Visit Provider Surgery | DX: Z93.3 Colostomy status (principal) | CPT/HCPCS: 99212 ==

== ENCOUNTER 2024-08-13 08:35 | Outpatient (AMB) | payer OTHER, SELFPAY ==
--- NOTE | 2024-08-13 08:42 | MHC.PC.OV ---
Vital Signs 08/13/24 08:43 08/13/24 09:18 Height 5 ft 7 in Weight 215 lb 4 oz BMI 33.7 BP 142/78 H 120/90 H Blood Pressure Location Lt brachial Position Sitting Pulse 71 Pulse Source Pulse Oximeter Pulse Oximetry (%) 98 Oxygen Delivery Method Room Air Intake Visit Reasons: overdue PE Intake Note: Patient is here today for a physical. Trapeze Performer Required: No Lead Worker Of Housekeeping And Laundry: Not Required per policy Accompanied by: Self / Same As Patient Allergies No Known Allergies [No Known Allergies*] Allergy (Verified 08/13/24 09:07) Medication List - Last Reconciled 08/13/24 by Willard Lester PA-C acetaminophen (Tylenol) 650 mg PO Q6H PRN amlodipine 5 mg See Protocol PO DAILY blood pressure test kit-large To take blood pressure once a day lisinopril 10 mg See Protocol PO DAILY Tobacco use date assessed: 08/13/24 Dental Screening Dental Screen Date: 08/13/24 Did you have a dental visit in the last 12 months?: Yes Did you have a dental problem in the last 6 months where you did not have access to dental care?: No Was dental information given to patient?: Patient has dentist HPI overdue PE HPI Details Patient is a 33 year male here today for routine annual physical ? Patient has past medical history significant obesity, elevated blood pressure readings, nonalcoholic fatty liver disease. HTN: Noted elevated blood pressure today in office.? He reports he did not take his blood pressure medication this morning. He does admit to being more consistent with the use of his amlodipine and lisinopril. He has not been monitoring his blood pressure at home.? He otherwise denies any chest discomfort, headaches, vision issues or palpitations. .. class 1 Obesity:. Will understands his BMI is over 30 will work on being more physically active and adapting to better eating habits to reduce his weight. .. Borderline high cholesterol: Most recent labs showing borderline high total cholesterol. He has been working on lifestyle modifications on reducing high cholesterol foods in his diet. Patient recently admitted to [facility] for acute abdominal pain. CT of abdomen was suspicious for acute diverticulitis with a contained microperforation. He ultimately underwent surgery with a Kassy's procedure with ostomy. Has followed up with general surgeon as outpatient and doing well with his ostomy bag. Now knows how to change his ostomy bag by himself. He anticipates a anastomosis reversal in near future. Vaccine: Up-to-date with tetanus vaccine, flu vaccine [facility] Medical History Fatty liver disease, nonalcoholic Surgical History Hx of surgical procedure (~06/26/24) No pertinent past surgical history Family History Father Diabetes Mother No problems noted. Social History Household Members: Other Household Members Other:: mom Housing: Apartment Housing Other:: living with parents Are you a primary resident care aid to a significant other at home: No Do you presently have visiting nurse or other home services: No Alcohol intake: former Patient Tobacco Use Status: Former Tobacco user e-Cigarette/Vaping Use: Never Used Second Hand Smoke Exposure: Yes service: No Current occupational status: disabled Cognitive needs: No Hearing needs: No Vision needs: Yes (Glasses) Questionnaire PHQ-9 Over the last 2 weeks, how often have you been bothered by any of the following problems? 1. Little interest or pleasure in doing things: not at all 2. Feeling down, depressed, or hopeless: not at all 3. Trouble falling or staying asleep, or sleeping too much: not at all 4. Feeling tired or having little energy: not at all 5. Poor appetite or overeating: not at all 6. Feeling bad about yourself - or that you are a failure or have let yourself or your family down: not at all 7. Trouble concentrating on things, such as reading the newspaper or watching television: not at all 8. Moving or speaking so slowly that other people could have noticed. Or the opposite - being so fidgety or restless that you have been moving around a lot more than usual: not at all 9. Thoughts that you would be better off or of hurting yourself in some way: not at all Total score: 0 Depression Screening Interpretation: Negative Depression Screening Done: Yes 79055 - PHQ-9 Billing: Yes Source: Developed by Drs. Remy Headley, Livier Medina, Vance Garcia and colleagues, with an educational pedro pablo from [employer]. Thrive Questionnaire Date Thrive assessed: 08/13/24 I am a: Patient What is your living situation today?: I have a steady place to live Within the past 12 months, did the food you bought not last and you didn't have the money to get more?: I choose not to answer this question Within the past 12 months, did you worry whether your food would run out before you got money to buy more?: I choose not to answer this question Do you have trouble paying for medicines?: I choose not to answer this question Do you have trouble getting transportation to medical appointments?: I choose not to answer this question Do you have trouble paying your heating and electricity bill?: I choose not to answer this question Do you have trouble taking care of your child, family member or friend?: I choose not to answer this question Do you have trouble with day-to-day activities such as bathing, preparing meals, shopping, managing finances, etc.?: I choose not to answer this question Are you currently unemployed and looking for a job?: I choose not to answer this question Are you interested in more education?: I choose not to answer this question Please select the resources that you would like help with: None Currently or been in a relationship where the following occur: No concerns reported THRIVE Score: 0 AUDIT C Alcohol Use Questionnaire (AUDIT-C) 1. How often do you have a drink containing alcohol?: Never Total Score: 0 GINI-7 AMB Questionnaire IGNI-7 Date GINI - 7 assessed: 08/13/24 Feeling nervous, anxious, or on edge: 0 = Not at all Not being able to stop or control worryin = Not at all Worrying too much about different things: 0 = Not at all Trouble relaxin = Not at all Being so restless that it is hard to sit still: 0 = Not at all Becoming easily annoyed or irritable: 0 = Not at all Feeling afraid as if something awful might happen: 0 = Not at all Total GINI-7 score (0-4 normal; 5-9 mild; 10-14 moderate; 15-21 severe): 0 Source: Developed by Shashank Killianet B.W. Adam, Vance Garcia and colleagues, with an educational pedro pablo from [employer]. GINI-7 Assessment Billing GINI-7 Assessment Tool: GINI-7 Assessment 65131 Review of Systems Const Denies body aches, Denies chills, Denies excessive sweating, Denies fatigue, Denies fever(s) and Denies headache(s) Eyes Denies blurry vision ENT Denies dysphagia, Denies vertigo, Denies dizziness, Denies headache(s), Denies hearing loss and Denies tinnitus Card Denies chest pain, Denies chest pain with activity, Denies syncope, Denies irregular heart rhythm and Denies dyspnea Resp Denies chest congestion, Denies cough, Denies hemoptysis, Denies dyspnea and Denies wheezing GI Denies abdominal pain, Denies melena, Denies hematochezia, Denies coffee ground emesis, Denies dysphagia, Denies diarrhea, Denies nausea and Denies vomiting Denies difficulty urinating, Denies dysuria, Denies urinary frequency, Denies urinary hesitancy and Denies urinary urgency Musc Denies arthralgias, Denies limited range of motion, Denies muscle cramps and Denies muscle weakness Skin/Breast Denies rash and Denies skin ulcer Neuro Denies Abnormal speech present, Denies confusion, Denies vertigo, Denies dizziness, Denies syncope, Denies headache(s), Denies memory loss and Denies seizure-like activity Psych Denies anxiety, Denies confusion, Denies depression, Denies memory loss, Denies panic attacks and Denies paranoia Endo Denies excessive sweating, Denies fatigue, Denies flushing, Denies polydipsia and Denies polyuria Aller/Immun Denies wheezing Physical exam (Primary Care) Vital Signs: Last Vital Signs Pulse 71 08/13/24 08:43 BP 120/90 H 08/13/24 09:18 Pulse Ox 98 08/13/24 08:43 Oxygen Delivery Method Room Air 08/13/24 08:43 BMI result Body Mass Index 33.7 Tobacco/Smoking Status: Tobacco use Status Tobacco use date assessed 08/13/24 08/13/24 08:48 Patient Tobacco Use Status Former Tobacco user 08/13/24 08:48 e-Cigarette/Vaping Use Never Used 08/13/24 08:48 PHQ-9: PHQ-9 Score PHQ-9: Total score 0 08/13/24 09:14 Depression Screening Interpretation: Negative Thrive Assessment: Date of Thrive Assessment Date Thrive assessed 08/13/24 08/13/24 08:48 Currently or been in a relationship where the following occur: No concerns reported Const General: cooperative, comfortable, no acute distress, alert and awake; No confusion Orientation/consciousness: oriented to person, oriented to place, patient oriented x3 and No confusion HENMT Head: Yes normocephalic Ears: external ears normal and TM's normal bilaterally Face and sinus: No sinus tenderness Mouth: Normal oral and palatal mucosa present and tongue normal Teeth and gingiva: dentition normal and gingiva normal Throat: Yes posterior oropharynx normal, Yes tonsils normal and Yes uvula midline Eyes Conjunctivae: conjunctivae normal Sclerae: sclerae normal Pupils: Equal, round and reactive pupils present EOM: EOMs intact bilaterally Direct Ophthalmoscopy: No no photophobia Neck Neck: Yes no lymphadenopathy, No tender and Yes no JVD Thyroid: Thyroid normal Carotids: no bruits Chest Chest palpation & inspection: no tenderness Resp Effort & Inspection: normal respiratory effort, no audible wheezes, not labored and no stridor Auscultation: no crackles, no rales, no rhonchi and no wheezes Cardio Jugular venous distension: no JVD Rate: regular rate, not bradycardic and not tachycardic Rhythm: regular rhythm Bruits: no carotid bruits Peripheral pulses: Peripheral pulses 2+ throughout GI Other: OSTOMY BAG NOTED DRAINING BROWN SOFT FECES Inspection: Yes normal to inspection, No abdominal wall ecchymosis and No visible herniation Palpation (GI): Soft to palpation, nontender, no guarding, not rigid and No hepatosplenomegaly present Auscultation: normoactive bowel sounds General: Yes no CVA tenderness Back/Spine/Pelvis Back: no CVA tenderness and No back tenderness Cervical Spine: cervical ROM normal Thoracic/Lumbar Spine: thoracic and lumbar spine normal to inspection, straight leg raise negative bilaterally, No thoraco-lumbar ROM limited and No lumbar spinal tenderness Skin Lesions: no lesions Rashes: no rashes Wounds: no wounds Neuro General: oriented to person, oriented to place, patient oriented x3, CN's II-XI intact bilaterally and No confusion Cranial nerves: Yes Equal, round and reactive pupils present and Yes Normal accommodation reflex present Cognition (Neuro): normal cognition Speech: No Abnormal speech present Gait exam (Neuro): Normal gait present Motor exam (neuro): 5/5 motor strength present throughout Extrem Right upper extremity: full ROM; no cyanosis Left upper extremity: full ROM; no cyanosis Right lower extremity: no edema Left lower extremity: no edema Psych Appearance: grossly normal Mental Status: mental status grossly normal Affect: normal affect Attitude: cooperative Thought process: Normal thought process present Office Procedures Flu Questionnaire Does the patient have a severe egg allergy?: No Does the patient have severe life threatening allergies?: No Does the patient have a fever or illness today?: No Has the patient ever had Guillain-Chamisal Syndrome?: No Has the patient ever had any past reaction to a flu shot?: No Immunizations Fluarix Triv [id number] (PF) 45 mcg (15 mcg x 3)/0.5 mL IM syringe Performing Provider: Willard Lester PA-C [facility] Administered by: Haley Presley LPN on 08/13/24 08:56 Dose Route Admin Location Dispensed Lot Number Expiration Date NDC Zinc Skimmer 0.5 mL IM Left Deltoid 0.5 mL [id number] 04/14/25 92652-579-03 Cold Futures VIS Given Date VIS Provided VIS Publication Date 08/13/24 Single Vaccine 21 Eligibility Eligibility Date Funding Source Not [facility] Eligible 08/13/24 Private Coding Level of Care Code Est Pt Prev Care 18-39y([id number]) Diagnoses Annual physical exam Z00.00 Primary hypertension I10 Hypertension type: primary hypertension Diverticulitis K57.92 Borderline high cholesterol E78.9 Additional Codes GINI-7 Assessment Billing - GINI-7 Assessment Tool: GINI-7 Assessment 53068 ([id number]) Assessment & Plan Assessment & Plan (1) Annual physical exam: Code(s): Z00.00 - Encounter for general adult medical examination without abnormal findings Category: Medical Plan: As per HPI (2) HTN (hypertension): Code(s): I10 - Essential (primary) hypertension Category: Medical Qualifiers: Hypertension type: primary hypertension Qualified Code(s): I10 - Essential (primary) hypertension Plan: Patient's blood pressure elevated today in office. He admits he has not taken his blood pressure medication today. Will work on being more consistent with taking his amlodipine and lisinopril daily. Advised to monitor blood pressures at home . Will work on lifestyle modifications to reduce his weight Goal blood pressures to be below 140/90 (3) Diverticulitis: Code(s): K57.92 - Diverticulitis of intestine, part unspecified, without perforation or abscess without bleeding Category: Medical Plan: As per HPI patient had an acute diverticulitis with some microperforations resulted in the need for bowel resection. Now has an ostomy bag and followed by [facility]. He anticipates a reversal in near future. (4) Borderline high cholesterol: Code(s): E78.9 - Disorder of lipoprotein metabolism, unspecified Category: Medical Plan: Patient's most recent lipid panel showing borderline high cholesterol. He be working on lifestyle and dietary modifications to reduce his cholesterol. Total cholesterol goal is to be below 200 Orders: Orders Influenza [id number] Immunization 08/13/24 Z23 - Encounter for immunization Microalbumin, Random (w Creat) 08/13/24 I10 - Essential (primary) hypertension Comprehensive [place]. Panel Fast 08/13/24 I10 - Essential (primary) hypertension Lipid Panel 08/13/24 E78.9 - Disorder of lipoprotein metabolism, unspecified Complete Blood Count no Diff 08/13/24 I10 - Essential (primary) hypertension Patient Instructions: Goal: Blood pressure to be below 140/90, total cholesterol to be below 200 Barriers: Adherence to physical activity and healthy eating habits
[2024-08-13 08:43] VITALS: BP 142/78; PULSE 71; O2SAT 98; BMI 33.7
[2024-08-13 09:18] VITALS: BP 120/90
== END 2024-08-13 09:19 | disposition home or self-care (01) ==
LOC: HO.HMCH 08:36
PROVIDERS: PCP Physician Assistant; Visit Provider Physician Assistant
DX: Z00.00 Encounter for general adult medical examination without abnormal findings (principal); I10 Essential (primary) hypertension; K57.92 Diverticulitis of intestine, part unspecified, without perforation or abscess without bleeding; E78.9 Disorder of lipoprotein metabolism, unspecified

== ENCOUNTER → 2024-08-13 08:35 | Outpatient (BNVA) | payer OTHER, SELFPAY | PROVIDERS: PCP Physician Assistant; Visit Provider Physician Assistant | DX: Z00.01 Encounter for general adult medical examination with abnormal findings (principal); Z23 Encounter for immunization; I10 Essential (primary) hypertension; K57.92 Diverticulitis of intestine, part unspecified, without perforation or abscess without bleeding; E78.9 Disorder of lipoprotein metabolism, unspecified | CPT/HCPCS: 90471; 90656; 96127; 99395 ==

== ENCOUNTER 2024-08-13 09:31 | Outpatient (REF) | payer OTHER, SELFPAY ==
[2024-08-13 11:03] LABS: Hematocrit 39.9 % (42.0-52.0); Hemoglobin 13.1 g/dl (14.0-18.0); Mean Corpuscular HGB Conc 32.8 g/dl (31.0-36.0); Mean Corpuscular Hemoglobin 26.5 pg (27.0-33.0); Mean Corpuscular Volume 80.8 fL (80.0-98.0); Mean Platelet Volume 10.2 fL (9.4-12.4); Platelet Count 248 X10*3/uL (160-400); Red Blood Count 4.94 X10*6/uL (4.60-5.80); Red Cell Distribution Width 14.3 % (11.0-16.0); White Blood Count 6.9 X10*3/uL (4.8-10.8)
[2024-08-13 11:49] LABS: Alanine Aminotransferase 43 U/L (0-40); Albumin Level 4.5 g/dL (3.5-5.0); Alkaline Phosphatase 70 U/L (39-117); Anion Gap 13 (12-20); Aspartate Amino Transferase 28 U/L (5-37); Bilirubin Total 0.6 mg/dL (0.0-1.0); Blood Urea Nitrogen 9 mg/dL (9-16); Carbon Dioxide 28 mmol/L (22-29); Chloride 106 mmol/L (96-108); Cholesterol 175 mg/dL (<200); Estimated Glomerular Filt Rate > 60; Glucose Fasting 91 mg/dL (60-99); HDL Cholesterol 43 mg/dL (>40); LDL Cholesterol Calculated 100 mg/dL (<100); Potassium 3.4 mmol/L (3.3-5.1); Sodium 144 mmol/L (135-145); Total Protein 7.3 g/dL (6.5-8.0); Triglycerides 162 mg/dL (<150)
== END 2024-08-13 09:32 | disposition home or self-care (01) ==
LOC: HO.10HDL 09:31
PROVIDERS: Visit Provider Physician Assistant
DX: I10 Essential (primary) hypertension (principal); E78.9 Disorder of lipoprotein metabolism, unspecified
CPT/HCPCS: 36415; 80053; 80061; 85027

== ENCOUNTER 2024-10-03 09:31 | Outpatient (AMB) | payer MEDICAID, SELFPAY ==
--- NOTE | 2024-10-03 09:33 | A.OFFVIS_ITS ---
Vital Signs 10/03/24 09:37 Height 5 ft 7 in Weight 212 lb BMI 33.2 BP 127/85 Blood Pressure Location Rt brachial Position Sitting Pulse 85 Intake Visit Reasons: 1 month s/p Hand assisted laparoscopic anterior Intake Note: This patient presents for one month follow-up status post Hand assisted laparoscopic anterior resection of the rectosigmoid, extensive lysis of adhesions, end-colostomy from the left colon. Pt c/o; having a hard time sleeping with the bag. Knitting Machine Operator Automatic Required: No Accompanied by: Self / Same As Patient Allergies No Known Allergies [No Known Allergies*] Allergy (Verified 10/03/24 09:37) HPI HPI 1 month s/p Hand assisted laparoscopic anterior: Details: 34-year-old male here for follow-up after Kassy's procedure. He had undergone an emergency Kassy's procedure last June 2024 for perforated diverticulitis. He seems to be doing well since then. I had reminded doing a colonoscopy prior to his reversal. He is here to discuss this today. [facility] Medical History (Updated 10/03/24 @ 09:39 by Orlando Felder MD) Colostomy in place Fatty liver disease, nonalcoholic Surgical History Hx of surgical procedure (~06/26/24) No pertinent past surgical history Family History Father Diabetes Mother No problems noted. Social History Household Members: Other Household Members Other:: mom Housing: Apartment Housing Other:: living with parents Are you a primary skin care consultant to a significant other at home: No Do you presently have visiting nurse or other home services: No Alcohol intake: former Patient Tobacco Use Status: Former Tobacco user e-Cigarette/Vaping Use: Never Used Second Hand Smoke Exposure: Yes service: No Current occupational status: disabled Cognitive needs: No Hearing needs: No Vision needs: Yes (Glasses) Review of Systems Const Denies chills and Denies fever(s) Card Denies chest pain, Denies dyspnea and Denies dyspnea on exertion Resp Denies cough, Denies dyspnea and Denies dyspnea on exertion GI Details: Good stoma function Denies hematochezia and Denies change in bowel habits Denies hematuria and Denies difficulty urinating Musc Denies back pain and Denies limited range of motion Neuro Denies focal weakness and Denies convulsions Psych Denies depression and Denies mood swings Physical Exam Vital Signs: Last Vital Signs Pulse 85 10/03/24 09:37 BP 127/85 10/03/24 09:37 BMI result Body Mass Index 33.2 Const Other: Obese General: comfortable and no acute distress Orientation/consciousness: patient oriented x3 Neck Neck: Yes no lymphadenopathy Resp Auscultation: clear to auscultation bilaterally Cardio Rhythm: regular rhythm GI Other: Stoma functioning well Palpation (GI): Soft to palpation, nontender and no guarding Neuro General: patient oriented x3 Assessment & Plan Assessment & Plan (1) Colostomy in place: Code(s): Z93.3 - Colostomy status Category: Medical Plan: He has a colostomy in place after Kassy's procedure for perforated diverticulitis in June,. I explained to him the technique of colonoscopy via the stoma and the rectum to evaluate the entire colon prior to reversal. I reviewed with him the risks including but not limited to bleeding, infections, perforation, as well as the benefits and alternatives. He says he understands and wants to proceed. He is now down to about 212 lb. I advised him on the benefits of weight loss prior to reversal. Coding Level of Care Code Est Pt Level 3 (86834) Diagnoses Colostomy in place Z93.3
[2024-10-03 09:37] VITALS: BP 127/85; PULSE 85; BMI 33.2
== END 2024-10-03 09:48 | disposition home or self-care (01) ==
PROVIDERS: PCP Physician Assistant; Visit Provider Surgery
DX: Z93.3 Colostomy status (principal)
CPT/HCPCS: 99213

== ENCOUNTER → 2024-10-03 09:31 | Outpatient (BNVA) | payer MEDICAID, SELFPAY | PROVIDERS: PCP Physician Assistant; Visit Provider Surgery | DX: Z93.3 Colostomy status (principal); Z87.19 Personal history of other diseases of the digestive system; Z98.890 Other specified postprocedural states | CPT/HCPCS: 99212 ==

== ENCOUNTER 2024-10-25 07:25 | Day surgery (SDC) | payer OTHER, SELFPAY ==
[2024-10-23 10:34] VITALS: BMI 33.2
--- NOTE | 2024-10-23 13:46 | P.CONAN_ITS ---
Documented by User: Selene Cast NP 10/23/24 13:47 HPI - Anesthesia Eval Consult details Narrative: 34yo M for Colonoscopy via the stoma and rectum Bowel resection with ostomy 06/2024 [facility] Active Problems Active Problems: All Active Problems Status post Kassy procedure (Acute) Diverticulitis (Acute) Borderline high cholesterol (Acute) HTN (hypertension) (Acute) Elevated blood pressure reading in office with diagnosis of hypertension (Acute) Annual physical exam (Acute) Screening for hypercholesterolemia (Acute) Screening for hypothyroidism (Acute) Screening for diabetes mellitus (DM) (Acute) Obese (Acute) Colostomy in place (Acute) Past Medical History Medical History Elevated cholesterol HTN (hypertension) Diverticulitis Colostomy in place Fatty liver disease, nonalcoholic Family History Family History Father Diabetes Mother No problems noted. Family history of problems with anesthesia: No Surgical History Surgical History Hx of surgical procedure (~06/26/24) History of Problems with Anesthesia: No Social History Social History Household Members: Other Household Members Other:: mom Housing: Apartment Housing Other:: living with parents Are you a primary child care giver to a significant other at home: No Do you presently have visiting nurse or other home services: No Alcohol intake: former Patient Tobacco Use Status: Former Tobacco user e-Cigarette/Vaping Use: Never Used Second Hand Smoke Exposure: Yes service: No Current occupational status: disabled Cognitive needs: No Hearing needs: No Vision needs: Yes (Glasses) Meds Allergies Allergy/AdvReac Type Severity Reaction Status Date / Time No Known Allergies Allergy Verified 10/25/24 07:43 [No Known Allergies*] Home Medications ?Medication ?Instructions ?Recorded ?Confirmed ?Last Taken ?Type acetaminophen 325 mg tablet 650 mg PO Q6H PRN Pain 06/22/24 10/25/24 Unknown History (Tylenol) Exam Height,Weight and Vital Signs: Height 5 ft 7 in Weight 96.162 kg Narrative Narrative: EKG 06/2024 Vent. Rate : 079 BPM Atrial Rate : 079 BPM P-R Int : 144 ms QRS Dur : 080 ms QT Int : 374 ms P-R-T Axes : 064 047 029 degrees QTc Int : 428 ms Normal sinus rhythm with sinus arrhythmia Normal ECG No previous ECGs available Assessment and Plan Assessment Anesthesia Assessment: Chart Reviewed Final Anesthetic Review Family History of Problems with Anesthesia: No History of Problems with Anesthesia: No Documented by User: Mathew Lloyd MD 10/25/24 13:09 [facility] Past Medical History Medical History Elevated cholesterol HTN (hypertension) Diverticulitis Colostomy in place Fatty liver disease, nonalcoholic Family History Family History Father Diabetes Mother No problems noted. Surgical History Surgical History Hx of surgical procedure (~06/26/24) Social History Social History Household Members: Other Household Members Other:: mom Housing: Apartment Housing Other:: living with parents Are you a primary child care giver to a significant other at home: No Do you presently have visiting nurse or other home services: No Alcohol intake: former Patient Tobacco Use Status: Former Tobacco user e-Cigarette/Vaping Use: Never Used Second Hand Smoke Exposure: Yes service: No Current occupational status: disabled Cognitive needs: No Hearing needs: No Vision needs: Yes (Glasses) Meds Allergies Allergy/AdvReac Type Severity Reaction Status Date / Time No Known Allergies Allergy Verified 10/25/24 07:43 [No Known Allergies*] Home Medications ?Medication ?Instructions ?Recorded ?Confirmed ?Last Taken ?Type acetaminophen 325 mg tablet 650 mg PO Q6H PRN Pain 06/22/24 10/25/24 Unknown History (Tylenol) Exam Airway Mallampati Class: II TM Dist: <=3cm Neck ROM: Full Heart: ok Lungs: ok Assessment and Plan Assessment Anesthesia Assessment: Anesthesia Plan Discussed Final Anesthetic Review NPO: Yes ASA Class: II Final Preanesthetic Review: No Changes in Pt Med Stat, Meds/Allgs Chart Reviewed, Consent Obtained/Reviewed and Anes Risks/Benef Reviewed Patient Risk: Low Procedure Risk: Low Anesthetic Plan Anesthetic Plan: MAC: and Agree w/ Assess. and Plan Disposition: Standard PACU
[2024-10-25 07:42] VITALS: BMI 32.4
[2024-10-25] MEDS: Lactated Ringers 1,000 ML 100 ML IVCONT (07:54)
--- NOTE | 2024-10-25 08:01 | MHC.SHP ---
Pre-Procedural Eval Section A - 24 Hr Update-Section A only Date of Service: 10/25/24 The patient is an INPATIENT: No Changes since office visit: No Cold of Flu in the past 2 weeks, No New Medical Problems, No Changes in Medication and No Patient answered all questions The patient has been examined within 24 hours of the surgical procedure. The History & Physical has been completed within 30 days and I have reviewed it.: Yes Section B - Complete if H&P > 30 days Chief Complaint: Colostomy status Allergies: Allergies Allergy/AdvReac Type Severity Reaction Status Date / Time No Known Allergies Allergy Verified 10/25/24 07:43 [No Known Allergies*] Plan I have reviewed the history and physical and performed a pertinent physical examination on my patient. No changes have occurred unless specified. Time Spent With Patient Time: Total time managing care of this patient today ____ minutes.
[2024-10-25 08:02] VITALS: BP 137/87; PULSE 74; RESP 18; TEMP 36.8; O2SAT 99
--- NOTE | 2024-10-25 08:32 | P.OP_ITS ---
Operative Note Operative Note Date of Service: 10/25/24 Narrative: Preop diagnosis: S/P procedure for diverticular disease Postop diagnosis: Normal colonoscopy via the stoma in the rectum Procedure: Colonoscopy via the stoma in the rectum Surgeon: Orlando Felder MD The patient is a 34-year-old male who had undergone emergency Kassy's procedure for worsening diverticular abscess last June,. He is here for colonoscopy prior to reversal of his colostomy. He understood the technique of the planned procedure as well as the risks, benefits, and alternatives He was brought to the operating room. He was initially placed in left lateral decubitus position under monitored anesthesia care. A surgical time-out had been done I proceeded do a digital rectal exam. There were no palpable anal canal lesions. I inserted the scope through the anal orifice and advanced this gently with the insufflation of the rectum. The entire rectal pouch was examined. The length was about 20 cm. There was no residual diverticular disease. I proceeded to withdraw the scope with careful examination of the entire mucosa until this was completely removed. There were no anal canal lesions. We then placed the patient in supine position. The colostomy was gently intub ated with the colonoscope. We insufflated and carefully advanced the scope all the way to the cecum. The cecum was intubated. The cecum was identified by visualization of the ileocecal valve as well as the appendiceal orifice. The cecal mucosa was unremarkable. The scope was gradually withdrawn with careful examination of the entire colonic mucosa being done with scope withdrawal. The patient had good bowel prep so it was unlikely the lesion may have been missed. There was no diverticular disease noted in the colon or the remaining sigmoid The scope was then withdrawn completely with desufflation The patient tolerated the procedure well. There were no immediate complications. He was transferred to the recovery room with stable vital signs.
[2024-10-25 08:35] VITALS: BP 112/66; PULSE 72; RESP 20; TEMP 36.2; O2SAT 98
[2024-10-25 08:51] VITALS: BP 118/73; PULSE 65; RESP 17; TEMP 36.3; O2SAT 97
== END 2024-10-25 09:15 | disposition home or self-care (01) ==
PROVIDERS: PCP Physician Assistant; Visit Provider Surgery
PROC: 0DJD8ZZ Inspection of Lower Intestinal Tract, Via Natural or Artificial Opening Endoscopic (ICD-10-PCS; CPT 45378; principal; 2024-10-25 08:30)
DX: Z12.11 Encounter for screening for malignant neoplasm of colon (principal); Z93.3 Colostomy status; I10 Essential (primary) hypertension; E78.00 Pure hypercholesterolemia, unspecified; K76.0 Fatty (change of) liver, not elsewhere classified; E66.9 Obesity, unspecified; Z79.899 Other long term (current) drug therapy; Z98.890 Other specified postprocedural states; Z87.891 Personal history of nicotine dependence
CPT/HCPCS: 44388; 45330; J2003; J2704

== ENCOUNTER → 2024-10-25 07:25 | Outpatient (BNV) | payer OTHER, SELFPAY | PROVIDERS: PCP Physician Assistant; Visit Provider Surgery | DX: Z93.3 Colostomy status (principal) | CPT/HCPCS: 44388; 45330 ==

== ENCOUNTER 2024-11-07 10:19 | Outpatient (AMB) | payer OTHER, SELFPAY ==
--- NOTE | 2024-11-07 10:38 | A.OFFVIS_ITS ---
Vital Signs 11/07/24 10:42 Height 5 ft 7 in Weight 213 lb BMI 33.4 BP 127/80 Blood Pressure Location Rt brachial Position Sitting Pulse 68 Intake Visit Reasons: S/P colonoscopy via the stoma & rectum Intake Note: This patient presents for follow-up status post colonoscopy. Pt c/o; no concerns. Procedure date: 10/25/24 Data Coder Operator Required: No Accompanied by: Self / Same As Patient Allergies No Known Allergies [No Known Allergies*] Allergy (Verified 11/07/24 10:43) HPI HPI S/P colonoscopy via the stoma & rectum: Details: 34-year-old male here for follow-up after Kassy's procedure. He had undergone an emergency Kassy's procedure last June 2024 for perforated diverticulitis. He has been doing well since then. I had done a colonoscopy last 10/25/2023 from both the stoma and the rectum. There were no lesions or polyps seen. There was no diverticuli seen. The rectal pouch was about 20 cm long. He says he is ready to have his reversal of his colostomy. He says that he has lost about 20 lb since he had the surgery last year. FORMERLY [facility], [facility] Medical History (Updated 11/07/24 @ 10:54 by Orlando Felder MD) Morbid obesity Elevated cholesterol HTN (hypertension) Diverticulitis Colostomy in place Fatty liver disease, nonalcoholic Surgical History History of colonoscopy (~10/25/24) Hx of surgical procedure (~06/26/24) Family History Father Diabetes Mother No problems noted. Social History Household Members: Other Household Members Other:: mom Housing: Apartment Housing Other:: living with parents Are you a primary med care manager to a significant other at home: No Do you presently have visiting nurse or other home services: No Alcohol intake: former Patient Tobacco Use Status: Former Tobacco user e-Cigarette/Vaping Use: Never Used Second Hand Smoke Exposure: Yes service: No Current occupational status: disabled Cognitive needs: No Hearing needs: No Vision needs: Yes (Glasses) Review of Systems Const Denies chills and Denies fever(s) Card Denies chest pain, Denies dyspnea and Denies dyspnea on exertion Resp Denies cough, Denies dyspnea and Denies dyspnea on exertion GI Details: Has an end colostomy in the left Denies hematochezia and Denies change in bowel habits Denies hematuria and Denies difficulty urinating Musc Denies back pain and Denies limited range of motion Neuro Denies focal weakness and Denies convulsions Psych Denies depression and Denies mood swings Physical Exam Vital Signs: Last Vital Signs Pulse 68 11/07/24 10:42 BP 127/80 11/07/24 10:42 BMI result Body Mass Index 33.4 Const General: comfortable and no acute distress Orientation/consciousness: patient oriented x3 Neck Neck: Yes no lymphadenopathy Resp Auscultation: clear to auscultation bilaterally Cardio Rhythm: regular rhythm GI Other: Colostomy in the left lower quadrant functioning well, midline incision well healed Palpation (GI): Soft to palpation, nontender and no guarding Neuro General: patient oriented x3 Assessment & Plan Assessment & Plan (1) Colostomy in place: Code(s): Z93.3 - Colostomy status Category: Medical Plan: He has an end colostomy after Kassy's procedure for diverticulitis last June,. He says he is doing well. His colonoscopy done 2 weeks ago shows no residual diverticular disease nor polyps. I had a long discussion with him about the technique of hand assisted laparoscopic reversal of his colostomy with possible conversion to open and possible diverting loop ileostomy. I explained the risks including but not limited to bleeding, infections, injury to other organs including bowel, the urinary tract, the clots, pneumonia, staple line leak, inherent risks of anest hesia, as well as the benefits and alternatives I reviewed with him what to expect postoperatively He says he understands and wants to proceed. Medications: New neomycin administer at 1 PM, 2 PM, and 9 pm the day prior to surgery 1 g (2 x 500 mg) PO TID 6 tabs 0RF 3 doses sodium,potassium,mag sulfates 17.5-3.13-1.6 gram (Suprep Bowel Prep Kit) DILUTE; drink full amount early evening before AND next morning at least 2 hr before procedure; follow w 960 mL water PO 354 mL 0RF erythromycin Two tablets at 01:00 o'clock, 02:00 o'clock and 09:00 o'clock p.m. of the day before surgery 6 tabs 0RF Coding Level of Care Code Est Pt Level 4 (85718) Diagnoses Colostomy in place Z93.3
[2024-11-07 10:42] VITALS: BP 127/80; PULSE 68; BMI 33.4
== END 2024-11-07 10:52 | disposition home or self-care (01) ==
PROVIDERS: PCP Physician Assistant; Visit Provider Surgery
DX: Z93.3 Colostomy status (principal)
CPT/HCPCS: 99214

== ENCOUNTER → 2024-11-07 10:19 | Outpatient (BNVA) | payer OTHER, SELFPAY | PROVIDERS: PCP Physician Assistant; Visit Provider Surgery | CPT/HCPCS: 99212 ==

== ENCOUNTER 2024-12-24 06:02 | Inpatient (IN) | payer OTHER, SELFPAY ==
[2024-12-06 09:51] VITALS: BP 131/73; PULSE 78; RESP 16; O2SAT 100; BMI 32.4
[2024-12-06 10:38] LABS: MANUAL DIFF FLAG NO
[2024-12-06 11:37] LABS: Basophils Percent Auto 0.5 % (0-2); Eosinophils Absolute Auto 0.2 X10*3/uL (0.0-0.4); Eosinophils Percent Auto 2.8 % (0-4); Hemoglobin 13.8 g/dl (14.0-18.0); Imm Gran Abs Auto 0.03 X10*3/uL (0.00-0.03); Imm Gran Pct Auto 0.4 % (0.0-0.4); Lymphocytes Absolute Auto 2.4 X10*3/uL (1.2-4.9); Lymphocytes Percent Auto 28.9 % (20-40); Mean Corpuscular HGB Conc 33.7 g/dl (31.0-36.0); Mean Corpuscular Hemoglobin 27.2 pg (27.0-33.0); Mean Corpuscular Volume 80.7 fL (80.0-98.0); Monocytes Absolute Auto 0.6 X10*3/uL (0.1-1.2); Monocytes Percent Auto 7.6 % (2-11); Neutrophils Absolute Auto 4.9 x10*3/uL (2.0-8.3); Neutrophils Percent Auto 59.8 % (45-73); Platelet Count 263 X10*3/uL (160-400); Red Blood Count 5.08 X10*6/uL (4.60-5.80); Red Cell Distribution Width 14.3 % (11.0-16.0); White Blood Count 8.1 X10*3/uL (4.8-10.8)
[2024-12-06 12:08] LABS: Anion Gap 11 (12-20); Blood Urea Nitrogen 8 mg/dL (9-16); Calcium 9.6 mg/dL (8.4-10.2); Carbon Dioxide 27 mmol/L (22-29); Chloride 108 mmol/L (96-108); Creatinine Clr Calc Pharmacy 119.4; Estimated Glomerular Filt Rate > 60; Glucose Random 80 mg/dL (60-115); Potassium 3.4 mmol/L (3.3-5.1); Sodium 143 mmol/L (135-145)
--- NOTE | 2024-12-20 13:43 | P.CONAN_ITS ---
Documented by User: Selene Cast NP 12/23/24 10:01 HPI - Anesthesia Eval Consult details Narrative: 34yo M for Hand Assist Colostomy Reversal Laparoscopic,possible Ileostomy PAT 12/06/[address] Felipe s/p colon resection with ostomy 06/2024 with GA-ETT 7.5 PMFSH Active Problems Active Problems: All Active Problems Morbid obesity (Acute) Status post Kassy procedure (Acute) Diverticulitis (Acute) Borderline high cholesterol (Acute) HTN (hypertension) (Acute) Elevated blood pressure reading in office with diagnosis of hypertension (Acute) Annual physical exam (Acute) Screening for hypercholesterolemia (Acute) Screening for hypothyroidism (Acute) Screening for diabetes mellitus (DM) (Acute) Obese (Acute) Colostomy in place (Acute) Past Medical History Medical History Morbid obesity Elevated cholesterol HTN (hypertension) Diverticulitis Colostomy in place Fatty liver disease, nonalcoholic Family History Family History Father Diabetes Mother No problems noted. Family history of problems with anesthesia: No Surgical History Surgical History History of colonoscopy (~10/25/24) Hx of surgical procedure (~06/26/24) History of Problems with Anesthesia: No Social History Social History Household Members: Family Household Members Other:: mom Housing: Apartment Housing Other:: living with parents Are you a primary home health care respiratory therapist to a significant other at home: No Do you presently have visiting nurse or other home services: No Alcohol intake: former Patient Tobacco Use Status: Former Tobacco user e-Cigarette/Vaping Use: Never Used Second Hand Smoke Exposure: Yes Use of substances other than those prescribed or required for medical reasons: No Have you been hit, kicked, punched, or otherwise hurt by someone within the past year? If so, by whom?: No Do you feel safe in your current relationship?: No Current Relationship Is there a partner from a previous relationship who is making you feel unsafe now?: No Are you made to feel afraid or neglected: No Are you DNR?: No Advance Directives: No Advance Directives Information Provided: No Advance Directives on File: No Do you have a plan to hurt others: No Plan Recently lost weight without trying: No Eating poorly because of decreased appetite: No Nutrition Risks: No Nutritional Risk Poor oral hygiene: No service: No Current occupational status: disabled Cognitive needs: No Hearing needs: No Vision needs: Yes (Glasses) Meds Allergies Allergy/AdvReac Type Severity Reaction Status Date / Time No Known Allergies Allergy Verified 12/24/24 06:26 [No Known Allergies*] Home Medications ?Medication ?Instructions ?Recorded ?Confirmed ?Last Taken ?Type acetaminophen 325 mg tablet 650 mg PO Q6H PRN Pain 06/22/24 12/24/24 Unknown History (Tylenol) lisinopril 10 mg tablet 10 mg PO DAILY 12/24/24 12/24/24 Unknown History Exam Height,Weight and Vital Signs: Height 5 ft 7.5 in Weight 95.254 kg Last Vital Signs Pulse 78 12/06/24 09:51 Resp 16 12/06/24 09:51 BP 131/73 12/06/24 09:51 Pulse Ox 100 12/06/24 09:51 O2 Del Method Room Air 12/06/24 09:51 Pertinent Lab Results Pertinent Lab Results: Laboratory Tests 12/06/24 10:36 WBC 8.1 RBC 5.08 Hgb 13.8 L Hct 41.0 L MCV 80.7 MCH 27.2 MCHC 33.7 RDW 14.3 Plt Count 263 MPV 10.0 Immature Gran % (Auto) 0.4 Neut % (Auto) 59.8 Lymph % (Auto) 28.9 [place] % (Auto) 7.6 Eos % (Auto) 2.8 Baso % (Auto) 0.5 Lymph # (Auto) 2.4 [place] # (Auto) 0.6 Eos # (Auto) 0.2 Baso # (Auto) 0.0 Abs Immat Gran (auto) 0.03 Absolute Neuts (auto) 4.9 Absolute Nucleated RBC 0.000 Nucleated RBC % (auto) 0.0 Sodium 143 Potassium 3.4 Chloride 108 Carbon Dioxide 27 Anion Gap 11 L BUN 8 L Creatinine 0.94 Estim Creat Clear Calc 119.4 Estimated GFR > 60 Random Glucose 80 Calcium 9.6 Narrative Narrative: EKG 06/2024 Vent. Rate : 079 BPM Atrial Rate : 079 BPM P-R Int : 144 ms QRS Dur : 080 ms QT Int : 374 ms P-R-T Axes : 064 047 029 degrees QTc Int : 428 ms Normal sinus rhythm with sinus arrhythmia Normal ECG No previous ECGs available Assessment and Plan Assessment Anesthesia Assessment: Chart Reviewed Final Anesthetic Review Family History of Problems with Anesthesia: No History of Problems with Anesthesia: No Documented by User: Juan Luis Mcmillan MD 12/24/24 14:33 [facility] Past Medical History Medical History Morbid obesity Elevated cholesterol HTN (hypertension) Diverticulitis Colostomy in place Fatty liver disease, nonalcoholic Family History Family History Father Diabetes Mother No problems noted. Surgical History Surgical History History of colonoscopy (~10/25/24) Hx of surgical procedure (~06/26/24) Social History Social History Household Members: Family Household Members Other:: mom Housing: Apartment Housing Other:: living with parents Are you a primary home health care respiratory therapist to a significant other at home: No Do you presently have visiting nurse or other home services: No Alcohol intake: former Patient Tobacco Use Status: Former Tobacco user e-Cigarette/Vaping Use: Never Used Second Hand Smoke Exposure: Yes Use of substances other than those prescribed or required for medical reasons: No Have you been hit, kicked, punched, or otherwise hurt by someone within the past year? If so, by whom?: No Do you feel safe in your current relationship?: No Current Relationship Is there a partner from a previous relationship who is making you feel unsafe now?: No Are you made to feel afraid or neglected: No Are you DNR?: No Advance Directives: No Advance Directives Information Provided: No Advance Directives on File: No Do you have a plan to hurt others: No Plan Recently lost weight without trying: No Eating poorly because of decreased appetite: No Nutrition Risks: No Nutritional Risk Poor oral hygiene: No service: No Current occupational status: disabled Cognitive needs: No Hearing needs: No Vision needs: Yes (Glasses) Meds Allergies Allergy/AdvReac Type Severity Reaction Status Date / Time No Known Allergies Allergy Verified 12/24/24 06:26 [No Known Allergies*] Home Medications ?Medication ?Instructions ?Recorded ?Confirmed ?Last Taken ?Type acetaminophen 325 mg tablet 650 mg PO Q6H PRN Pain 06/22/24 12/24/24 Unknown History (Tylenol) lisinopril 10 mg tablet 10 mg PO DAILY 12/24/24 12/24/24 Unknown History Exam Airway Mallampati Class: II TM Dist: >3cm Neck ROM: Full Loose/Missing/Broken Teeth: Yes Assessment and Plan Assessment Anesthesia Assessment: Anesthesia Plan Discussed Final Anesthetic Review NPO: Yes ASA Class: II Final Preanesthetic Review: No Changes in Pt Med Stat, Meds/Allgs Chart Reviewed, Consent Obtained/Reviewed and Anes Risks/Benef Reviewed Patient Risk: Low Procedure Risk: Low Anesthetic Plan Anesthetic Plan: GA and Regional Block Disposition: Standard PACU
[2024-12-24] VITALS (12 sets, daily range): BP systolic 131–162; BP diastolic 79–90; PULSE 71–106; RESP 15–21; TEMP 36.3–37.1; O2SAT 97–100; BMI 30.2
[2024-12-24] MEDS: Lactated Ringers 1,000 ML 100 ML IVCONT (06:26)
--- NOTE | 2024-12-24 07:23 | MHC.SHP ---
Pre-Procedural Eval Section A - 24 Hr Update-Section A only Date of Service: 12/24/24 Section B - Complete if H&P > 30 days Chief Complaint: Reversal of Colostomy Details of Present Illness: had urgent Kassy's procedure in Jun 2024 for diverticulitis with perf, here for reversal Relevant Social History: None Present Medications: see Short Stay Collaborative assessment Medical History: Significant History (HTN obesity) Allergies: Allergies Allergy/AdvReac Type Severity Reaction Status Date / Time No Known Allergies Allergy Verified 12/24/24 06:26 [No Known Allergies*] Review of Systems Sugical H&P ROS: Negative: Constitution, Cardiovascular and Respiratory Exam Surgical H&P Exam: Normal: Heart and Normal: Lungs and Significant Findings: Abdomen (colostomy on left) Plan Diagnosis/Plan: Unchanged I have reviewed the history and physical and performed a pertinent physical examination on my patient. No changes have occurred unless specified. Time Spent With Patient Time: Total time managing care of this patient today ____ minutes.
[2024-12-24] MEDS: cefoTEtan disodium 2 GM VIAL IVPUSH (07:48)
--- NOTE | 2024-12-24 07:48 | PC.NURSE ---
at 722 md requested a type and screen to be drawn. lab notified at [phone]. lab only up to draw at [phone]
--- NOTE | 2024-12-24 12:01 | P.OP_ITS ---
Operative Note Operative Note Date of Service: 12/24/24 Narrative: Preop diagnosis: Status post Kassy's procedure for perforated diverticulitis, here for reversal of colostomy Postop diagnosis: The same Procedure: Hand assisted laparoscopic reversal of colostomy, extensive lysis of adhesions, intraop flexible sigmoidoscopy Surgeon: Orlando Felder MD administrative office assistant: Dejon Slade MD The patient is a 34 year female who underwent urgent sigmoid resection for perforated diverticulitis in June,. He is here for reversal of the colostomy. He understood the technique of the planned procedure as well as the risks, benefits, and alternatives. He was brought to the operating room. He was placed in modified lithotomy position under general anesthesia via endotracheal tube. He underwent a TAP block by the anesthesiologist. I closed the colostomy with a running nylon 2-0 stitch. A Kitchen catheter was inserted. The abdomen and the perineum were then prepped and draped in the usual sterile fashion. A surgical time-out was done. The patient received Cefotan 2 g IV preoperatively I made a short infraumbilical incision on the old scar with a blade 15 and this carried down through the full-thickness of the skin subcutaneous fat down to the fascia. The fascia was incised. The peritoneum was entered. The Eduard wound retractor was positioned and the GelPort port was attached to this. We insufflated with the insufflating port and examined the peritoneum laparoscopically. He is note of a lot of adherent omentum in the upper abdomen as well as the left side of the incision. Therefore had to desufflate and do lysis of adhesions using electrocautery and Metzenbaum scissors to release all these omentum surrounding the fascial incision. This part of the procedure took some time Eventually, it appeared that we had adequate exposure of the upper abdomen with release of these adhesions. We therefore repositioned in the Eduard wound retractor and the GelPort. We were able to place a 5/12 mm port in the epigastric area with laparoscopic visualization. I therefore removed the insufflating port and positioned in the laparoscope into this epigastric port. We examined laparoscopically. Again there was note of adhesions with bowel loops surrounding the incision which we took down with the LigaSure. There was note of a markedly adherent small bowel loops on the right lower quadrant which appeared to be from a port site hernia. I therefore had to position a working port away from this on the right lower quadrant. This was a 5 mm port. I used the laparoscopic scissors utilize the adhesions and released this adherent small bowel loop. This was markedly adherent and intimately stuck to the areas it appeared that we had a serosal tear. We continued to do lysis adhesions on the pelvis and the lower abdomen using the LigaSure as there were adherent omentum and small bowel loops as well Eventually we are able to achieve good exposure of the entire pelvis. An initial examination of the pelvis did not really show an obvious rectal stump. We could not identify the staple line either. At this point we decided to just released the colostomy for now We desufflated. I made an incision on the skin around the colostomy with a blade 15. This carried down through the full-thickness of the skin subcutaneous fat with electrocautery. We continued to dissect down with electrocautery through the thick subcutaneous fat until we are able to visualize the fascia. I had to do extensive this is of adhesions of the ileostomy towards the fascial edge with Metzenbaum scissors. There was note of a lot of fibrotic adhesions t ethering the serosal side of the colostomy to the fascial edge. We had to do a lot of careful dissection with Metzenbaum scissors as as well as electrocautery circumferentially and until was able to completely reduce the colostomy through the fascial defect . I closed the fascia of the colostomy opening with a running Maxon 1 stitch. We then proceeded to re-insufflate and attached the port. With laparoscopic visualization I was able to identify more adhesions tethering the colostomy to the peritoneum and we had to carefully divide this with the LigaSure. I had to mobilize more of the left colon as well by dividing the ligamentous attachments along the white line of Toldt along the gutter. Eventually, we are able to mobilize the colostomy and the left colon and achieve adequate length to reach the pelvis. I desufflated. I brought out the stump through the incision. I cleared up the stump to allow us to he was the pursestring device. The pursestring device was fired. We transected the stump past the pursestring device. We were able to then expose the entire lumen. I dilated this to 28 mm using the dilators. We then positioned the anvil into the lumen. We tightened the pursestring around this I cleaned up the stump surrounding the anvil of excess tissue using gentle dissection of the electrocautery and Metzenbaum scissors. We then placed the stump with the anvil back into the peritoneal cavity. We reverted back to laparoscopy. We could not identify the rectal stump initially. We therefore had to first see if we could advance the dilator through the rectal stump. We had difficulty passing this so I had to do an intraop flexible sigmoidoscopy . I inserted the endoscope through the anal orifice and this was gently insufflated. We were also looking at the pelvis laparoscopically. We were eventually able to advance the scope all the way to the staple line. This was about 20 cm long. It appeared that this entire area was patent and we were able to advance the dilator to the staple line. . I then positioned the EEA apparatus by inserting this through the anus and advancing the gently. With laparoscopic visualization we are able to guide this all the way to the anterior aspect of the rectal stump adjacent to the staple line. We activated the spike through this area. We attached the anvil he was spike. The EEA apparatus was tightened. We make sure that there was no other structure caught between the circular staplers. The stapler was fired to create our the end an circular anastomosis. We then removed the apparatus. I examined the anastomotic donuts and the proximal and distal rings were intact. We tested the anastomosis using the flexible sigmoidoscopy. This was immersed in irrigation fluid. There was no bubbling noted. We are able to pass the scope through the anastomosis and this appeared to be intact and viable without any evidence of any leak or ischemia. There was also note of good hemostasis in the anastomosis. We withdrew the scope completely We then proceeded to change gowns and gloves I re-examined laparoscopically. There was note of good hemostasis. We examined all 4 quadrants. There was no evidence of any injury or any other pathology We desufflated. I then pulled up the small bowel and examined this to make sure that there were no bowel injuries. There was note of a serosal tear on 1 segment likely on the area that was adherent to the port site as a hernia. I closed his serosal tear with 2 layers of seromuscular Polysorb 3-0 sutures Examination of the small bowel loops near the pelvis did not reveal any other muscle tear or any signs of injury I replaced the bowel loops back to the peritoneal cavity. I examined the left colon there was no signs of any twisting. After irrigation, I desufflated and removed the Eduard wound retractor. I closed the fascia with a running Maxon 1 stitch. I examined both closures of the midline and the ostomy in this appeared intact without any bowel caught by the sutures . I desufflated and removed all ports. I irrigated all incisions. I closed all skin incisions with skin judi. Dressings were applied. I placed iodoform packing in the subcutaneous layer of the colostomy incision. The procedure was completed. The patient tolerated the procedure well. There were no immediate complications. Initial and final counts of sponges and instruments were correct. Estimated blood loss about 150 cc The patient was extubated without difficulty and transferred to the recovery room with stable vital signs
[2024-12-24] MEDS: HYDROmorphone HCl 0.5 MG/0.5 ML SYRINGE 0.25 MG IVPUSH ×2 (12:28→12:33)
--- NOTE | 2024-12-24 13:08 | P.CONHOSP_ITS ---
History of Present Illness Data of Consult Service Date: 12/24/24 Requesting physician: Orlando Felder Primary Care Provider: MD ASIA Wick Reason for consult: htn 34-year-old male with history of perforated diverticulitis s/p Kassy procedure, hypertension, obesity admitted to general surgery for colostomy reversal. On exam, patient is lethargic but able to answer questions. He states that he has been out of 1 of his blood pressure medications but he is unsure of which and took the other this morning. States that he ran out of refills for either the lisinopril or amlodipine, he is unsure which. On review of external medication history, it is likely he ran out of the lisinopril and he has been taking amlodipine. He is reporting general soreness in the abdomen but otherwise has no complaints. He remains on 2 L supplemental O2 but denies any shortness of breath, cough, or chest pain. He has no history of chronic lung disease and is not oxygen dependent at home. Since his procedure he has been mildly tachycardic hypertensive most recently 147/81. Review of Systems 2 Review of Systems: Yes all other systems are reviewed and are negative [facility] Medical History Morbid obesity Elevated cholesterol HTN (hypertension) Diverticulitis Colostomy in place Fatty liver disease, nonalcoholic Family History Father Diabetes Mother No problems noted. Surgical History History of colonoscopy (~10/25/24) Hx of surgical procedure (~06/26/24) Social History Household Members: Other Household Members Other:: mom Housing: Apartment Housing Other:: living with parents Are you a primary resident care provider to a significant other at home: No Do you presently have visiting nurse or other home services: No Alcohol intake: former Patient Tobacco Use Status: Former Tobacco user e-Cigarette/Vaping Use: Never Used Second Hand Smoke Exposure: Yes Use of substances other than those prescribed or required for medical reasons: No Have you been hit, kicked, punched, or otherwise hurt by someone within the past year? If so, by whom?: No Are you DNR?: No Advance Directives: No Advance Directives Information Provided: No Advance Directives on File: No Recently lost weight without trying: No Eating poorly because of decreased appetite: No Nutrition Risks: No Nutritional Risk Poor oral hygiene: No service: No Current occupational status: disabled Cognitive needs: No Hearing needs: No Vision needs: Yes (Glasses) Meds Allergies Allergy/AdvReac Type Severity Reaction Status Date / Time No Known Allergies Allergy Verified 12/24/24 06:26 [No Known Allergies*] Active Medications: Current Medications Acetaminophen (Acetaminophen 325 Mg Tablet) 650 mg PO Q6H PRN PRN Reason: Pain, Mild 1-3,fever,headache Calcium Carbonate (Calcium Carbonate 750 Mg Tab.Chew) 750 mg PO Q4H PRN PRN Reason: Heartburn Hydromorphone HCl (Hydromorphone Hcl 0.5 Mg/0.5 Ml Syringe) 0.25 mg IVPUSH Q5M PRN PRN Reason: Pain, Moderate to Severe (Pain Scale 4-10) Stop: 12/24/24 18:24 Last Admin: 12/24/24 12:33 Dose: 0.25 mg Lactated Ringer's (Lr) 1,000 mls @ 100 mls/hr IVCONT .Q10H [facility] Last Admin: 12/24/24 06:26 Dose: 100 mls/hr Magnesium Hydroxide (Milk Of Magnesia 30 Ml Oral.Susp) 30 ml PO DAILY PRN PRN Reason: Constipation Melatonin (Melatonin 3 Mg Tablet) 6 mg PO BEDTIME PRN PRN Reason: Insomnia Naloxone HCl (Naloxone Hcl 0.4 Mg/Ml Vial) 0.04 mg IVPUSH Q5M PRN PRN Reason: Excessive sedation or RR < 8 Ondansetron HCl (Ondansetron Hcl 4 Mg/2 Ml Vial) 4 mg IVPUSH ONCE PRN PRN Reason: Nausea and Vomiting Stop: 12/24/24 18:24 Sodium Chloride (0.9 % Sodium Chloride Flush 3 Ml Syringe) 3 ml IVFLUSH QSHIFT [facility] Home Medications ?Medication ?Instructions ?Recorded ?Confirmed ?Last Taken ?Type acetaminophen 325 mg tablet 650 mg PO Q6H PRN Pain 06/22/24 12/24/24 Unknown History (Tylenol) Physical Exam 2 Vital Signs and Narrative: Vital Signs: Last Vital Signs Temp 97.8 F 12/24/24 12:48 Pulse 106 H 12/24/24 12:48 Resp 20 12/24/24 12:48 BP 147/81 H 12/24/24 12:48 Pulse Ox 100 12/24/24 12:48 O2 Del Method Nasal Cannula wit h Capnography 12/24/24 12:48 O2 Flow Rate 2 12/24/24 12:48 BMI result Body Mass Index 30.2 Constitutional - Awake and Alert, No apparent distress Eyes - PERRLA, EOMI Cardiovascular - S1S2, RRR, No edema Respiratory - Normal lung expansion, Normal respiratory effort, No respiratory distress on 2L supplemental O2. Diminished in the b/l lower lobes, otherwise CTA Extremities - no calf tenderness bilaterally, no swelling Skin - Warm/Dry Neurological - Alert & oriented x3 Psychological - Appropriate affect Results Labs 12/06/24 10:36 12/06/24 10:36 Labs: Laboratory Results - last 24 hr 12/24/24 07:42 Blood Type B Negative Antibody Screen NEGATIVE Assessment and Plan (1) HTN (hypertension): Qualifiers: Hypertension type: primary hypertension Qualified Code(s): I10 - Essential (primary) hypertension Status: Acute Plan 34-year-old male with history of perforated diverticulitis s/p Kassy procedure, hypertension, obesity admitted to general surgery for colostomy reversal. #Colostomy reversal -plan per general surgery -wean O2 as tolerated. Consider IS as tolerated/cleared by general surgery given abd surgery #HTN -On review of external medication history, pt likely ran out of lisinopril and took amlodipine this morning -Continue amlodipine and resume lisinopril tomorrow morning #obesity class 1 -weight loss efforts encouraged Thank you for allowing me to participate in this consult. Signing off at this time. Please do not hesitate to call for further questions.
--- NOTE | 2024-12-24 13:49 | PHA.MEDREC ---
Addendum entered by Luigi Keyes 12/24/24 13:56: spoke with provider, patient should be on lisinopril but ran out of refills. Will put it back on home med list. Original Note: Pharmacy Consult ? Medication Reconciliation Pharmacy has completed the medication reconciliation. Spoke to patient at bedside, he states he only takes the tylenol and amlodipine. Has not filled Lisinopril in nearly a year and only filled a 1 day supply of erythromycin and neomycin back in October 2024. Will remove from list.
[2024-12-24] MEDS: Lactated Ringers 1,000 ML 80 ML IVCONT (13:52)
[2024-12-24] MEDS: Morphine Sulfate 4 MG/ML CARTRIDGE 3 MG IVPUSH ×2 (13:53→21:31)
--- NOTE | 2024-12-24 14:58 | PM.EVENT ---
Event Note Date of Service: 12/25/24 Event Note: Seen postop on afternoon rounds Underwent reversal of colostomy earlier with extensive lysis of adhesions Procedure done with some difficulty in view of extensive adhesions Currently says he has a adequate pain control Stable vital signs On clear liquids Pain management Good urine output Family updated by phone - Shae [phone] Incentive spirometry Time Spent With Patient Time: Total time managing care of this patient today ____ minutes.
[2024-12-24] MEDS: Acetaminophen 1,000 MG/100 ML PIGGYBACK 400 MG IV ×2 (17:23→22:40)
[2024-12-24] MEDS: 0.9 % Sodium Chloride Flush 3 ML SYRINGE IVFLUSH (22:43)
[2024-12-25] MEDS: Lactated Ringers 1,000 ML 80 ML IVCONT ×2 (01:12→12:38)
[2024-12-25 03:16] VITALS: BP 135/86; PULSE 84; RESP 18; TEMP 36.5; O2SAT 99
[2024-12-25] MEDS: Morphine Sulfate 4 MG/ML CARTRIDGE 3 MG IVPUSH ×3 (03:51→15:54)
[2024-12-25] MEDS: Acetaminophen 1,000 MG/100 ML PIGGYBACK 400 MG IV ×4 (05:50→21:56)
[2024-12-25] MEDS: oxyCODONE HCl Immed Release 5 MG TABLET 10 MG PO ×2 (07:20→12:37)
[2024-12-25] MEDS: lisinopriL 10 MG TABLET PO (07:20)
[2024-12-25] MEDS: amLODIPine Besylate 5 MG TABLET PO (07:21)
--- NOTE | 2024-12-25 07:30 | P.PNGS_ITS ---
Subjective Subjective Date of Service: 12/25/24 <Thalia Lakhani PA-C - Last Filed: 12/25/24 07:34> 12/25/24 <Orlando Felder MD - Last Filed: 12/25/24 16:06> Interval history: Feels ok this morning, sore at incision sites. Has not had much PO intake. Denies flatus. Has not been OOB yet. <Thalia Lakhani PA-C - Last Filed: 12/25/24 07:34> Physical Exam 2 Vital Signs: Vital Signs: Last Vital Signs Temp 97.7 F 12/25/24 03:16 Pulse 84 12/25/24 03:16 Resp 18 12/25/24 03:16 BP 135/86 12/25/24 03:16 Pulse Ox 99 12/25/24 03:16 O2 Del Method Nasal Cannula 12/25/24 03:16 O2 Flow Rate 2 12/25/24 03:16 BMI result Body Mass Index 30.2 <Thalia Lakhani PA-C - Last Filed: 12/25/24 07:34> Const: General: comfortable, no acute distress and alert <Thalia Lakhani PA-C - Last Filed: 12/25/24 07:34> Orientation/consciousness: patient oriented x3 <CHELY Francois Last Filed: 12/25/24 07:34> Resp: Effort & Inspection: normal respiratory effort <Thalia Lakhani PA-C - Last Filed: 12/25/24 07:34> GI: Other: dressings clean and intact <Thalia Lakhani PA-C - Last Filed: 12/25/24 07:34> Palpation (GI): Soft to palpation, Tenderness to palpation present (GI) (mild incisional) and no guarding <CHELY Francois Last Filed: 12/25/24 07:34> Percussion: Yes tympanic to percussion <CHELY Francois Last Filed: 12/25/24 07:34> Skin: General skin exam: no rashes or lesions noted <CHELY Francois Last Filed: 12/25/24 07:34> Neuro: General: patient oriented x3 and moves all extremities <Thalia Lakhani PA-C - Last Filed: 12/25/24 07:34> Objective Data Active Medications Amlodipine Besylate (Amlodipine Besylate 5 Mg Tablet) 5 mg PO DAILY [facility]; Protocol Last Admin: 12/25/24 07:21 Dose: 5 mg Documented By: COCO Calcium Carbonate (Calcium Carbonate 750 Mg Tab.Chew) 750 mg PO Q4H PRN PRN Reason: Heartburn Lactated Ringer's (Lr) 1,000 mls @ 80 mls/hr IVCONT .[id number] [facility] Last Admin: 12/25/24 01:12 Dose: 80 mls/hr Documented By: CORI Acetaminophen (irmev) 1,000 mg in 100 mls @ 400 mls/hr IV Q6H [facility] Stop: 12/25/24 11:44 Last Infusion: 12/25/24 06:05 Dose: Infused Documented By: CORI Lisinopril (Lisinopril 10 Mg Tablet) 10 mg PO DAILY [facility]; Protocol Last Admin: 12/25/24 07:20 Dose: 10 mg Documented By: COCO Melatonin (Melatonin 3 Mg Tablet) 6 mg PO BEDTIME PRN PRN Reason: Insomnia Morphine Sulfate (Morphine Sulfate 4 Mg/Ml Cartridge) 3 mg IVPUSH Q3H PRN; Protocol PRN Reason: Pain, Severe (Pain Scale 7-10) Last Admin: 12/25/24 03:51 Dose: 3 mg Documented By: CORI Naloxone HCl (Naloxone Hcl 0.4 Mg/Ml Vial) 0.04 mg IVPUSH Q5M PRN PRN Reason: Excessive sedation or RR < 8 Ondansetron HCl (Ondansetron Hcl 4 Mg/2 Ml Vial) 4 mg IVPUSH Q6H PRN PRN Reason: Nausea and Vomiting Oxycodone HCl (Oxycodone Hcl Immed Release 5 Mg Tablet) 10 mg PO Q4H PRN PRN Reason: Pain, Moderate(Pain Scale 4-6) Last Admin: 12/25/24 07:20 Dose: 10 mg Documented By: COCO Sodium Chloride (0.9 % Sodium Chloride Flush 3 Ml Syringe) 3 ml IVFLUSH QSHIFT [facility] Last Admin: 12/25/24 07:20 Dose: Not Given Documented By: COCO Non-Admin Reason: IV Running <Thalia Lakhani PA-C - Last Filed: 12/25/24 07:34> Labs CBC & Chem 7: 12/25/24 07:28 12/25/24 07:28 <Thalia Lakhani PA-C - Last Filed: 12/25/24 07:34> Labs: Laboratory Results - last 24 hr 12/24/24 07:42 Blood Type B Negative Antibody Screen NEGATIVE <Thalia Lakhani PA-C - Last Filed: 12/25/24 07:34> Procedures Date of Service Date of Service: 12/25/24 <Thalia Lakhani PA-C - Last Filed: 12/25/24 07:34> 12/25/24 <Orlando Felder MD - Last Filed: 12/25/24 16:06> Progress Note: A&P Assessment and plan (1) History of colostomy reversal: Status: Acute <Thalia Lakhani PA-C - Last Filed: 12/25/24 07:34> Assessment and Plan: says he feels well seems to have good pain control slept well denies flatus abd soft await return of GI function ambulate incentive spirometry plan to dc packing on old stoma site tomorrow seen and examined independently <Orlando Felder MD - Last Filed: 12/25/24 16:06> Assessment and Plan: POD #1 s/p Hand assisted laparoscopic reversal of colostomy, extensive lysis of adhesions, intraop flexible sigmoidoscopy. Doing well post op, good pain control. No evidence of return of GI function yet. VSS. Abd exam benign with clean dressings. Dc tidwell. Cont clear liquids for now. Encouraged OOB/ambulation and IS use. Await return of GI function. AM labs pending. < Thalia Lakhani PA-C - Last Filed: 12/25/24 07:34> Time Spent With Patient Time: Total time managing care of this patient today ____ minutes. <CHELY Francois Last Filed: 12/25/24 07:34> Quality Stroke Does the patient have a stroke diagnosis?: No <Thalia Lakhani PA-C - Last Filed: 12/25/24 07:34> VTE Prior VTE?: No <Thalia Lakhani PA-C - Last Filed: 12/25/24 07:34> VTE Risk Level:: Medical - low <Thalia Lakhani PA-C - Last Filed: 12/25/24 07:34> VTE Device Contraindication: N/A - Device Ordered <Thalia Lakhani PA-C - Last Filed: 12/25/24 07:34> VTE Drug Contraindication: Treatment Not Indicated <Thalia Lakhani PA-C - Last Filed: 12/25/24 07:34>
[2024-12-25 07:39] LABS: MANUAL DIFF FLAG NO
[2024-12-25 07:44] VITALS: BP 146/82; PULSE 93; RESP 18; TEMP 36.9; O2SAT 98
[2024-12-25 07:53] LABS: Basophils Percent Auto 0.3 % (0-2); Eosinophils Absolute Auto 0.1 X10*3/uL (0.0-0.4); Eosinophils Percent Auto 0.9 % (0-4); Hematocrit 40.2 % (42.0-52.0); Hemoglobin 13.4 g/dl (14.0-18.0); Imm Gran Abs Auto 0.03 X10*3/uL (0.00-0.03); Imm Gran Pct Auto 0.3 % (0.0-0.4); Lymphocytes Absolute Auto 1.4 X10*3/uL (1.2-4.9); Lymphocytes Percent Auto 13.9 % (20-40); Mean Corpuscular HGB Conc 33.3 g/dl (31.0-36.0); Mean Corpuscular Hemoglobin 26.9 pg (27.0-33.0); Mean Corpuscular Volume 80.6 fL (80.0-98.0); Mean Platelet Volume 9.7 fL (9.4-12.4); Monocytes Absolute Auto 0.8 X10*3/uL (0.1-1.2); Monocytes Percent Auto 8.1 % (2-11); Neutrophils Absolute Auto 7.5 x10*3/uL (2.0-8.3); Neutrophils Percent Auto 76.5 % (45-73); Platelet Count 251 X10*3/uL (160-400); Red Blood Count 4.99 X10*6/uL (4.60-5.80); Red Cell Distribution Width 14.4 % (11.0-16.0); White Blood Count 9.9 X10*3/uL (4.8-10.8)
[2024-12-25 08:25] LABS: Anion Gap 12 (12-20); Blood Urea Nitrogen 6 mg/dL (9-16); Calcium 8.9 mg/dL (8.4-10.2); Carbon Dioxide 26 mmol/L (22-29); Chloride 106 mmol/L (96-108); Creatinine Clr Calc Pharmacy 108.5; Estimated Glomerular Filt Rate > 60; Glucose Fasting 102 mg/dL (60-99); Potassium 3.9 mmol/L (3.3-5.1); Sodium 140 mmol/L (135-145)
--- NOTE | 2024-12-25 09:23 | MHC.CM.PN ---
PT LIVES WITH HIS MOM HAS NO SEVICES IS INDEPENDENT DC PLAN HOME N/S
[2024-12-25 15:10] VITALS: BP 137/78; PULSE 104; RESP 17; TEMP 36.9; O2SAT 96
--- NOTE | 2024-12-25 16:06 | PM.EVENT ---
Event Note Date of Service: 12/26/24 Event Note: seen on afternoon rounds has walked many times - admits to being sore on incisions after denies flatus tolerating clear liquids abd soft voiding freely keep on clears ambulate pain mgt continue IVF labs ok Time Spent With Patient Time: Total time managing care of this patient today ____ minutes.
[2024-12-26] VITALS: BP 136/83; PULSE 101; RESP 18; TEMP 37; O2SAT 96
[2024-12-26] MEDS: Lactated Ringers 1,000 ML 80 ML IVCONT ×2 (00:08→12:50)
[2024-12-26] MEDS: oxyCODONE HCl Immed Release 5 MG TABLET 10 MG PO ×2 (01:25→12:54)
[2024-12-26] MEDS: Acetaminophen 1,000 MG/100 ML PIGGYBACK 400 MG IV ×3 (04:17→15:42)
[2024-12-26 07:11] VITALS: BP 129/85; PULSE 96; RESP 16; TEMP 36.7; O2SAT 96
--- NOTE | 2024-12-26 08:09 | PM.PNGS ---
Subjective Subjective Date of Service: 12/26/24 Interval history: States he has passed flatus multiple times Tolerating clear liquids well States he had a good night Pain seems well controlled - says he does not take morphine Has been ambulating Physical Exam Vital Signs: Vital Signs: Last Vital Signs Temp 98.0 F 12/26/24 07:11 Pulse 96 12/26/24 07:11 Resp 16 12/26/24 07:11 BP 129/85 12/26/24 07:11 Pulse Ox 96 12/26/24 07:11 O2 Del Method Room Air 12/26/24 07:11 O2 Flow Rate 1 12/25/24 07:44 BMI result Body Mass Index 30.2 Const: General: comfortable and no acute distress Resp: Effort & Inspection: normal respiratory effort Cardio: Rate: regular rate GI: Other: Incisions clean and dry, no cellulitis Palpation (GI): Soft to palpation, not firm and no guarding Objective Data Active Medications Amlodipine Besylate (Amlodipine Besylate 5 Mg Tablet) 5 mg PO DAILY [facility]; Protocol Last Admin: 12/25/24 07:21 Dose: 5 mg Documented By: COCO Calcium Carbonate (Calcium Carbonate 750 Mg Tab.Chew) 750 mg PO Q4H PRN PRN Reason: Heartburn Lactated Ringer's (Lr) 1,000 mls @ 80 mls/hr IVCONT .[id number] [facility] Last Admin: 12/26/24 00:08 Dose: 80 mls/hr Documented By: CORI Acetaminophen (Ofirmev) 1,000 mg in 100 mls @ 400 mls/hr IV Q6H [facility] Stop: 12/26/24 10:14 Last Infusion: 12/26/24 04:32 Dose: Infused Documented By: CORI Lisinopril (Lisinopril 10 Mg Tablet) 10 mg PO DAILY [facility]; Protocol Last Admin: 12/25/24 07:20 Dose: 10 mg Documented By: COCO Melatonin (Melatonin 3 Mg Tablet) 6 mg PO BEDTIME PRN PRN Reason: Insomnia Morphine Sulfate (Morphine Sulfate 4 Mg/Ml Cartridge) 3 mg IVPUSH Q3H PRN; Protocol PRN Reason: Pain, Severe (Pain Scale 7-10) Last Admin: 12/25/24 15:54 Dose: 3 mg Documented By: HO.[email or web address] Naloxone HCl (Naloxone Hcl 0.4 Mg/Ml Vial) 0.04 mg IVPUSH Q5M PRN PRN Reason: Excessive sedation or RR < 8 Ondansetron HCl (Ondansetron Hcl 4 Mg/2 Ml Vial) 4 mg IVPUSH Q6H PRN PRN Reason: Nausea and Vomiting Oxycodone HCl (Oxycodone Hcl Immed Release 5 Mg Tablet) 10 mg PO Q4H PRN PRN Reason: Pain, Moderate(Pain Scale 4-6) Last Admin: 12/26/24 01:25 Dose: 10 mg Documented By: CORI Sodium Chloride (0.9 % Sodium Chloride Flush 3 Ml Syringe) 3 ml IVFLUSH QSHIFT [facility] Last Admin: 12/26/24 00:08 Dose: Not Given Documented By: CORI Non-Admin Reason: IV Running Labs 12/25/24 07:28 12/25/24 07:28 Labs: Laboratory Results - last 24 hr 12/25/24 07:28 Anion Gap 12 Estim Creat Clear Calc 108.5 Estimated GFR > 60 Fasting Glucose 102 H Calcium 8.9 D Procedures Date of Service Date of Service: 12/26/24 Progress Note: A&P Assessment and plan (1) History of colostomy reversal: Status: Acute Assessment and Plan: Status post reversal of end colostomy, postop day 2 Clinically looks well Passing flatus Abdomen is soft and benign I removed his packing and applied a dressing on the old colostomy site Continue to ambulate Likely advance diet later today if with consistent flatus Time Spent With Patient Time: Total time managing care of this patient today ____ minutes. Quality Stroke Does the patient have a stroke diagnosis?: No VTE Prior VTE?: No VTE Risk Level:: Medical - low VTE Device Contraindication: N/A - Device Ordered VTE Drug Contraindication: Treatment Not Indicated
--- NOTE | 2024-12-26 08:20 | HO.POSTANES ---
Post Anesthesia Evaluation Post Anesthesia Evaluation Date of Service: 12/26/24 Vital Signs: Vital Signs Temp Pulse Resp BP Pulse Ox O2 Del Method 12/26/24 07:11 98.0 F 96 16 129/85 96 Room Air 12/26/24 00:00 98.6 F 101 H 18 136/83 96 Room Air Anesthesia: General Mental Status: Awake Pain Control: Satisfactory Nausea/Vomiting: None Hydration: Adequate Anesthesia-Related Issues: No Anes. Related Issues
[2024-12-26] MEDS: amLODIPine Besylate 5 MG TABLET PO (08:29)
[2024-12-26] MEDS: lisinopriL 10 MG TABLET PO (08:29)
--- NOTE | 2024-12-26 09:51 | PC.NURSE ---
pt with loose bloody stool this morning, denies any pain. Dr. Felder notified. No new orders at this time.
--- NOTE | 2024-12-26 14:49 | PM.EVENT ---
Event Note Date of Service: 12/27/24 Event Note: seen on afternoon rounds had 3 small BMs 1st BM had some blood - likely from the fresh anastomosis good flatus he says he feels well ambulating Okay to try regular diet tonight abdomen remained soft and benign Time Spent With Patient Time: Total time managing care of this patient today ____ minutes.
[2024-12-26 15:53] VITALS: BP 115/67; PULSE 104; RESP 18; TEMP 37.1; O2SAT 95
--- NOTE | 2024-12-26 19:16 | PC.NURSE ---
Assumed care at 1500, patient alert and oriented, RA, VSS, ambulates independently, dressing changed by surgeon, abdominal discomfort reported, diet upgraded to regular, patient able to tolerated it.
[2024-12-26] MEDS: 0.9 % Sodium Chloride Flush 3 ML SYRINGE IVFLUSH (21:35)
[2024-12-26 23:05] VITALS: BP 113/60; PULSE 89; RESP 18; TEMP 37.5; O2SAT 96
[2024-12-27] MEDS: oxyCODONE HCl Immed Release 5 MG TABLET 10 MG PO ×2 (01:07→07:03)
[2024-12-27] MEDS: Acetaminophen 1,000 MG/100 ML PIGGYBACK 400 MG IV ×2 (03:01→08:24)
[2024-12-27 07:54] VITALS: BP 131/77; PULSE 79; RESP 16; TEMP 36.3; O2SAT 97
--- NOTE | 2024-12-27 07:57 | PM.PNGS ---
Subjective Subjective Date of Service: 12/31/24 Interval history: States he feels well had a good night passing flatus tolerating regular diet no further bloody stools Physical Exam Vital Signs: Vital Signs: Last Vital Signs Temp 97.4 F 12/27/24 07:54 Pulse 79 12/27/24 07:54 Resp 16 12/27/24 07:54 BP 131/77 12/27/24 07:54 Pulse Ox 97 12/27/24 07:54 O2 Del Method Room Air 12/27/24 07:54 O2 Flow Rate 1 12/25/24 07:44 BMI result Body Mass Index 30.2 Const: Other: looks well General: comfortable and no acute distress Resp: Effort & Inspection: normal respiratory effort Cardio: Rate: regular rate GI: Other: all incisions clean and dry, judi in place, no cellulitis Palpation (GI): Soft to palpation, not firm and no guarding Objective Data Active Medications Amlodipine Besylate (Amlodipine Besylate 5 Mg Tablet) 5 mg PO DAILY [facility]; Protocol Last Admin: 12/26/24 08:29 Dose: 5 mg Documented By: BETZY Calcium Carbonate (Calcium Carbonate 750 Mg Tab.Chew) 750 mg PO Q4H PRN PRN Reason: Heartburn Acetaminophen (Ofirmev) 1,000 mg in 100 mls @ 400 mls/hr IV Q6H [facility] Stop: 12/27/24 09:14 Last Infusion: 12/27/24 03:20 Dose: Infused Documented By: CECE Lisinopril (Lisinopril 10 Mg Tablet) 10 mg PO DAILY [facility]; Protocol Last Admin: 12/26/24 08:29 Dose: 10 mg Documented By: BETZY Melatonin (Melatonin 3 Mg Tablet) 6 mg PO BEDTIME PRN PRN Reason: Insomnia Morphine Sulfate (Morphine Sulfate 4 Mg/Ml Cartridge) 3 mg IVPUSH Q3H PRN; Protocol PRN Reason: Pain, Severe (Pain Scale 7-10) Last Admin: 12/25/24 15:54 Dose: 3 mg Documented By: ROOSEVELT Naloxone HCl (Naloxone Hcl 0.4 Mg/Ml Vial) 0.04 mg IVPUSH Q5M PRN PRN Reason: Excessive sedation or RR < 8 Ondansetron HCl (Ondansetron Hcl 4 Mg/2 Ml Vial) 4 mg IVPUSH Q6H PRN PRN Reason: Nausea and Vomiting Oxycodone HCl (Oxycodone Hcl Immed Release 5 Mg Tablet) 10 mg PO Q4H PRN PRN Reason: Pain, Moderate(Pain Scale 4-6) Last Admin: 12/27/24 07:03 Dose: 10 mg Documented By: COCO Sodium Chloride (0.9 % Sodium Chloride Flush 3 Ml Syringe) [facility] Last Admin: 12/26/24 21:35 Dose: 3 ml Documented By: CECE Labs 12/25/24 07:28 12/25/24 07:28 Procedures Date of Service Date of Service: 12/31/24 Progress Note: A&P Assessment and plan (1) Colostomy in place: Status: Acute Assessment and Plan: status post reversal of colostomy doing well good GI functions abdomen is soft and benign has been ambulating good pain control states he is ready to be discharged today discharge instructions reinforced Time Spent With Patient Time: Total time managing care of this patient today ____ minutes. Quality Stroke Does the patient have a stroke diagnosis?: No VTE Prior VTE?: No VTE Risk Level:: Medical - low VTE Device Contraindication: N/A - Device Ordered VTE Drug Contraindication: Treatment Not Indicated
[2024-12-27] MEDS: lisinopriL 10 MG TABLET PO (08:23)
[2024-12-27] MEDS: amLODIPine Besylate 5 MG TABLET PO (08:23)
[2024-12-27] MEDS: 0.9 % Sodium Chloride Flush 3 ML SYRINGE IVFLUSH (08:24)
--- NOTE | 2024-12-27 09:10 | MHC.CM.PN ---
pt dcd home self care
[2024-12-27] MEDS: Flu Vacc TS2024-25(6mos up)/PF 0.5 ML SYRINGE IM (09:49)
[2024-12-27 09:56] VITALS: BP 140/74; PULSE 83; RESP 16; TEMP 36.1; O2SAT 99
--- NOTE | 2024-12-27 14:00 | PM.DS ---
DS: Providers Provider Date of Service: 12/27/24 Date of admission: 12/24/24 06:02 Date of discharge: 12/27/24 Primary care physician: Alisia Lopez MD Consults: 12/24/24 11:43 Consult to Hospitalist Routine Comment: Consulting Provider: [facility] [facility] Reason For Exam: HTN DS: Diagnosis Discharge Diagnosis (1) Colostomy in place: Status: Acute DS: Summary Hospital Course Hospital Course: HPI AT ADMISSION: The patient is a 34 year male who underwent urgent sigmoid resection for perforated diverticulitis in June,. He is here for reversal of the colostomy. He understood the technique of the planned procedure as well as the risks, benefits, and alternatives. HOSPITAL COURSE: On 12/24/24, hand assisted laparoscopic reversal of colostomy, extensive lysis of adhesions, intraop flexible sigmoidoscopy was performed by Dr. Felder without immediate complications. The patient was admitted post operatively for observation. Hospitalist consult was obtained for management of his hypertension. His home meds were resumed. He had an uncomplicated recovery course. His tidwell was removed on the first post operative day. He was ambulated and activity increased. He began to pass flatus. His diet was advanced the following day. His wound michelle were removed at his old colostomy site. He had a bloody BM and then began to have soft non bloody bowel movements. On the day of discharge, he was tolerating a solid diet without nausea or vomiting. He had good GI function. His pain was controlled on oral analgesics. He was hemodynamically stable. His abdomen was benign and soft with mild tenderness and clean incisions. He felt ready for discharge. He was discharged to home on 12/27/24 in stable condition. He is to follow up in the office in 2 weeks. Status at Discharge Functional status at discharge: independent ambulation Overall status at discharge: patient is progressing back to baseline Time Attestation Discharge Coordination Time (in mins): 35 Quality: Safe Use of Opioids Does Pt have an Active Cancer Diagnosis on the Problem List?: No Quality: Stroke Does the patient have a stroke diagnosis?: No Physical Exam Vital Signs: Vital Signs: Last Vital Signs Temp 96.9 F 12/27/24 09:56 Pulse 83 12/27/24 09:56 Resp 16 12/27/24 09:56 BP 140/74 H 12/27/24 09:56 Pulse Ox 99 12/27/24 09:56 O2 Del Method Room Air 12/27/24 09:56 O2 Flow Rate 1 12/25/24 07:44 BMI result Body Mass Index 30.2 Const: General: comfortable, no acute distress and alert Orientation/consciousness: patient oriented x3 GI: Other: wounds clean, judi intact old colostomy site wound michelle removed, no drainage Inspection: No distended Palpation (GI): Soft to palpation, Tenderness to palpation present (GI) (mild incisional) and no guarding Skin: General skin exam: no rashes or lesions noted Neuro: General: patient oriented x3 DS: Data Data Completed and Pending Completed studies during hospitalization [Text1]: 12/24/24 10:15 Surgical [PTH] Routine Colon, anastomotic donuts (reversal): Two annular portions of colonic mucosa and wall consistent with anastomotic rings, with no specific change Procedures Bypass Sigmoid Colon to Cutaneous, Percutaneous Endoscopic Approach (06/22/24) Excision of Rectum, Percutaneous Endoscopic Approach (06/22/24) Excision of Sigmoid Colon, Percutaneous Endoscopic Approach, Hand-Assisted (06/22/24) Introduction of Anesthetic Agent into Peripheral Nerves and Plexi, Percutaneous Approach (06/22/24) Release Peritoneum, Percutaneous Endoscopic Approach (06/22/24) Discharge Plan Discharge Anticipated Discharge Date/Time: 12/28/24 06:17 Patient Disposition: Home, Self-Care Discharge Diagnosis: s/p colostomy reversal Referrals: Orlando Felder MD [Physician] - 2 Weeks Alisia Goodman MD [Primary Care Provider] - 1 Week Discharge Medications: New oxycodone 5 mg tablet 5 mg PO Q4H PRN (Reason: pain (scale score 7-10)) Qty: 26 0RF Rx Instructions: Partial Fill upon patient request. docusate sodium [Colace] 100 mg capsule 100 mg PO DAILY Qty: 30 0RF Continued acetaminophen [Tylenol] 325 mg Tablet 650 mg PO Q6H PRN (Reason: Pain) amlodipine 5 mg Tablet 5 mg PO DAILY Qty: 90 0RF Protocol: Hold for SBP< HOLD for SBP < : 90 lisinopril 10 mg tablet 10 mg PO DAILY (DME) blood pressure test kit-large Kit See Rx Instructions .Route Qty: 1 0RF Rx Instructions: To take blood pressure once a day Discharge Orders: Discharge Order (Routine); Ordered 12/27/24 Ordered By: Orlando Felder Diet: Advance to usual diet Activity on Discharge: No heavy lifting Stand Alone Forms: Patient Portal Discharge page Print Language: Hungarian Activity Restrictions/Additional Instructions: If the incision area is tender, you may apply an ice pack for short intervals (No more than 20 minutes on, followed by at least 20 minutes off). Do not apply heat. Do not use creams, lotions, or topical antibiotics. These can cause infection or allergic reaction. Ok to shower. You have judi closing your incision and these will be removed approximately 10-14 days after surgery. You may have some yellow/reddish colored drainage from your old colostomy site until the wound closes and this is normal. Keep covered with 4x4 dressing while it drains. NO HEAVY LIFTING (>10lbs) or strenuous activity. Follow up in office. ([phone]) Call Your Doctor If: -Your temperature exceeds 101.5? F -You experience excessive pain or swelling -You have an unexpected reaction to medication -You have excessive bleeding -You experience continued vomiting/nausea -Your incision begins to separate -Your incision shows signs of infection such as increased redness, swelling, excessive pain, drainage (light blood or clear fluid is normal) or heat Care Plan Goals: Return to baseline health and resume normal activities following recovery period. Health Concerns: hx of perforated diverticulitis s/p israel procedure HTN Plan of Treatment: s/p LORRIE colostomy reversal f/u in office in 2 weeks Assessment: Doing well post op Discharge Date/Time: 12/27/24 10:33
== END 2024-12-27 10:33 | disposition home or self-care (01) | DRG 231 ==
LOC: HO.SSSA 06:04 → HO.S3 12:14
PROVIDERS: Anesthesiology; Physician Assistant Surgical; Admitting Provider Surgery; PCP Internal Medicine; Visit Provider Surgery
PROC: 0DBE4ZZ Excision of Large Intestine, Percutaneous Endoscopic Approach (ICD-10-PCS; CPT 44227; principal; 2024-12-24 07:30)
DX: Z43.3 Encounter for attention to colostomy (principal); E66.811 Obesity, class 1; G89.18 Other acute postprocedural pain; K66.0 Peritoneal adhesions (postprocedural) (postinfection); I10 Essential (primary) hypertension; Z68.30 Body mass index [BMI] 30.0-30.9, adult; Z71.3 Dietary counseling and surveillance; Z87.891 Personal history of nicotine dependence; Z79.899 Other long term (current) drug therapy
CPT/HCPCS: 36415; 80048; 85025; 86850; 86900; 86901; 88304; 88305; 90656; J0131; J1171; J2003; J2250; J2270; J2405; J2704; J2795; J3010; J7120

== ENCOUNTER → 2024-12-24 06:02 | Outpatient (BNV) | payer OTHER, SELFPAY | PROVIDERS: Admitting Provider Surgery; PCP Internal Medicine; Visit Provider Physician Assistant | DX: I10 Essential (primary) hypertension (principal) | CPT/HCPCS: 99222 ==

== ENCOUNTER → 2024-12-24 06:02 | Outpatient (BNV) | payer OTHER, SELFPAY | PROVIDERS: Admitting Provider Surgery; PCP Internal Medicine; Visit Provider Surgery | DX: Z98.890 Other specified postprocedural states (principal) | CPT/HCPCS: 99024; 99499 ==

== ENCOUNTER 2025-01-06 09:15 | Outpatient (AMB) | payer OTHER, SELFPAY ==
--- NOTE | 2025-01-06 09:20 | MHC.OFFVIS ---
Vital Signs 01/06/25 09:30 Height 5 ft 7.5 in Weight 191 lb 4 oz BMI 29.5 BP 129/83 Blood Pressure Location Lt brachial Position Sitting Pulse 91 Intake Visit Reasons: S/P reversal of colostomy Intake Note: Patient is seen in office for post op assessment post colostomy reversal laparoscopic. 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 He tolerated procedure well. He was discharged on postop day 3. He has good oral intake. He has good bowel movements. He denies significant pain. [facility] Medical History Morbid obesity Elevated cholesterol HTN (hypertension) Diverticulitis Colostomy in place Fatty liver disease, nonalcoholic Surgical History History of colostomy reversal (12/24/24) History of colonoscopy (~10/25/24) Hx of surgical procedure (~06/26/24) Family History Father Diabetes Mother No problems noted. Social History Household Members: Family Household Members Other:: mom Housing: Apartment Housing Other:: living with parents Are you a primary career and technology education teacher to a significant other at home: No Do you presently have visiting nurse or other home services: No Alcohol intake: former Patient Tobacco Use Status: Former Tobacco user e-Cigarette/Vaping Use: Never Used Second Hand Smoke Exposure: Yes service: No Current occupational status: disabled Cognitive needs: No Hearing needs: No Vision needs: Yes (Glasses) Review of Systems Const Denies chills and Denies fever(s) Card Denies chest pain, Denies dyspnea and Denies dyspnea on exertion Resp Denies cough, Denies dyspnea and Denies dyspnea on exertion GI Denies hematochezia and Denies change in bowel habits Denies hematuria and Denies difficulty urinating Musc Denies back pain and Denies limited range of motion Neuro Denies focal weakness and Denies convulsions Psych Denies depression and Denies mood swings Physical Exam Vital Signs: Last Vital Signs Pulse 91 01/06/25 09:30 BP 129/83 01/06/25 09:30 BMI result Body Mass Index 29.5 Const General: comfortable and no acute distress Resp Effort & Inspection: normal respiratory effort GI Other: All incisions are healing well Palpation (GI): Soft to palpation, not firm, nontender and no guarding Assessment & Plan Assessment & Plan (1) Status post Kassy procedure: Code(s): Z93.3 - Colostomy status Category: Surgical Plan: He had undergone reversal of his colostomy last 12/24/2024. He is doing well postoperatively. He has good GI functions. All incisions are well healed. I removed his skin judi. I advised him to avoid lifting anything more than 20 lb for at least 3-4 weeks. I will see him in the office for another postop visit in about a month. Coding Level of Care Code Global (49638) Diagnoses Status post Kassy procedure Z93.3
[2025-01-06 09:30] VITALS: BP 129/83; PULSE 91; BMI 29.5
== END 2025-01-06 09:43 | disposition home or self-care (01) ==
PROVIDERS: PCP Physician Assistant; Visit Provider Surgery
DX: Z93.3 Colostomy status (principal)
CPT/HCPCS: 99024

== ENCOUNTER → 2025-01-06 09:15 | Outpatient (BNVA) | payer OTHER, SELFPAY | PROVIDERS: PCP Physician Assistant; Visit Provider Surgery | DX: Z48.815 Encounter for surgical aftercare following surgery on the digestive system (principal); Z98.890 Other specified postprocedural states | CPT/HCPCS: 99212 ==

== ENCOUNTER 2025-01-14 08:22 | Outpatient (AMB) | payer OTHER, SELFPAY ==
[2025-01-14 10:03] VITALS: BP 122/70; PULSE 72; TEMP 36.3; O2SAT 99; BMI 29.5
--- NOTE | 2025-01-14 10:03 | MHC.PC.OV ---
Vital Signs 01/14/25 10:03 Height 5 ft 7.5 in Weight 191 lb BMI 29.5 BP 122/70 Blood Pressure Location Lt brachial Position Sitting Pulse 72 Pulse Source Pulse Oximeter Temp 97.3 F Temp Source Temporal Artery Scan Pulse Oximetry (%) 99 Oxygen Delivery Method Room Air Intake Visit Reasons: f/u HTN/ borderline high cholesterol Motor And Controls Tester Required: No Accompanied by: Self / Same As Patient Allergies No Known Allergies [No Known Allergies*] Allergy (Verified 01/14/25 10:21) Medication List - Last Reconciled 01/14/25 by Willard Lester PA-C acetaminophen (Tylenol) 650 mg PO Q6H PRN amlodipine 5 mg See Protocol PO DAILY blood pressure test kit-large To take blood pressure once a day docusate sodium (Colace) 100 mg PO DAILY lisinopril 10 mg PO DAILY oxycodone 5 mg PO Q4H PRN Tobacco use date assessed: 01/14/25 Dental Screening Dental Screen Date: 01/14/25 Did you have a dental visit in the last 12 months?: No Did you have a dental problem in the last 6 months where you did not have access to dental care?: No Was dental information given to patient?: Patient has dentist HPI f/u HTN/ borderline high cholesterol HPI Details Patient is a 34 year male here today for follow-up visit ? Patient has past medical history significant obesity, elevated blood pressure readings, nonalcoholic fatty liver disease. DIVERTICULITIS --> Patient recently admitted to [facility] for acute abdominal pain. CT of abdomen was suspicious for acute diverticulitis with a contained microperforation. He ultimately underwent surgery with a Kassy's procedure with ostomy. Has followed up with general surgeon as outpatient and doing well with his ostomy bag. Now knows how to change his ostomy bag by himself. He anticipates a anastomosis reversal in near future. Has recently underwent a reversal of his colostomy in his doing well. Has follow up with his general surgeon. He reports he is defecating normally. He is trying to stay on a healthy eating habits to avoid any recurrent GI issues. HTN: ? He reports being consistent with the use of his lisinopril. He is off of amlodipine at this point. Blood pressure today in office acceptable. He has not been monitoring his blood pressure at home.? He otherwise denies any chest discomfort, headaches, vision issues or palpitations. .. Borderline high cholesterol: Most recent labs showing borderline high total cholesterol. He has been working on lifestyle modifications on reducing high cholesterol foods in his diet. Laboratory Tests 06/28/24 06/29/24 06/30/24 17:12 08:45 06:17 RBC Hgb Potassium 3.1 L 3.1 L 3.4 Fasting Glucose Triglycerides Cholesterol 08/13/24 12/25/24 09:35 07:28 RBC 4.99 Hgb 13.4 L Potassium Fasting Glucose 91 102 H Triglycerides 162 H Cholesterol 175 [facility] Medical History Morbid obesity Elevated cholesterol HTN (hypertension) Diverticulitis Colostomy in place Fatty liver disease, nonalcoholic Surgical History History of colostomy reversal (12/24/24) History of colonoscopy (~10/25/24) Hx of surgical procedure (~06/26/24) Family History Father Diabetes Mother No problems noted. Social History Household Members: Family Household Members Other:: mom Housing: Apartment Housing Other:: living with parents Are you a primary health care coach to a significant other at home: No Do you presently have visiting nurse or other home services: No Alcohol intake: former Patient Tobacco Use Status: Former Tobacco user e-Cigarette/Vaping Use: Never Used Second Hand Smoke Exposure: Yes service: No Current occupational status: disabled Cognitive needs: No Hearing needs: No Vision needs: Yes (Glasses) Questionnaire PHQ-9 Over the last 2 weeks, how often have you been bothered by any of the following problems? 1. Little interest or pleasure in doing things: not at all 2. Feeling down, depressed, or hopeless: not at all 3. Trouble falling or staying asleep, or sleeping too much: not at all 4. Feeling tired or having little energy: not at all 5. Poor appetite or overeating: not at all 6. Feeling bad about yourself - or that you are a failure or have let yourself or your family down: not at all 7. Trouble concentrating on things, such as reading the newspaper or watching television: not at all 8. Moving or speaking so slowly that other people could have noticed. Or the opposite - being so fidgety or restless that you have been moving around a lot more than usual: not at all 9. Thoughts that you would be better off or of hurting yourself in some way: not at all Total score: 0 Depression Screening Interpretation: Negative Depression Screening Done: Yes 16158 - PHQ-9 Billing: Yes Source: Developed by Drs. Remy Headley, Livier Medina, Vance Garcia and colleagues, with an educational pedro pablo from [employer]. Thrive Questionnaire Date Thrive assessed: 01/14/25 I am a: Patient What is your living situation today?: I have a steady place to live Within the past 12 months, did the food you bought not last and you didn't have the money to get more?: Never true Within the past 12 months, did you worry whether your food would run out before you got money to buy more?: Never true Do you have trouble paying for medicines?: No Do you have trouble getting transportation to medical appointments?: No Do you have trouble paying your heating and electricity bill?: No Do you have trouble taking care of your child, family member or friend?: No Do you have trouble with day-to-day activities such as bathing, preparing meals, shopping, managing finances, etc.?: No Are you currently unemployed and looking for a job?: No Are you interested in more education?: No Please select the resources that you would like help with: None Currently or been in a relationship where the following occur: No concerns reported THRIVE Score: 0 AUDIT C Alcohol Use Questionnaire (AUDIT-C) 1. How often do you have a drink containing alcohol?: Never 3. How often do you have six or more drinks on one occasion?: Never Total Score: 0 GINI-7 AMB Questionnaire GINI-7 Date GINI - 7 assessed: 01/14/25 Feeling nervous, anxious, or on edge: 0 = Not at all Not being able to stop or control worryin = Not at all Worrying too much about different things: 0 = Not at all Trouble relaxin = Not at all Being so restless that it is hard to sit still: 0 = Not at all Becoming easily annoyed or irritable: 0 = Not at all Feeling afraid as if something awful might happen: 0 = Not at all Total GINI-7 score (0-4 normal; 5-9 mild; 10-14 moderate; 15-21 severe): 0 Source: Developed by Drs. Remy Headley, Livier Medina, Vance Garcia and colleagues, with an educational pedro pablo from [employer]. GINI-7 Assessment Billing GINI-7 Assessment Tool: GINI-7 Assessment 45457 Review of Systems Const Denies headache(s) Eyes Denies loss of vision ENT Denies vertigo, Denies dizziness, Denies headache(s) and Denies sore throat Card Denies chest pain, Denies leg edema and Denies lightheadedness Resp Denies cough, Denies hemoptysis and Denies wheezing GI Denies abdominal pain, Denies melena, Denies constipation, Denies diarrhea and Denies vomiting Denies dysuria, Denies urinary frequency and Denies urinary urgency Musc Denies arthralgias, Denies joint swelling, Denies numbness and Denies tingling Neuro Denies Abnormal speech present, Denies behavioral changes, Denies vertigo, Denies dizziness, Denies headache(s), Denies loss of vision, Denies memory loss, Denies numbness and Denies tingling Psych Denies anxiety, Denies behavioral changes, Denies depression, Denies memory loss and Denies panic attacks Glen/Lymph Denies easy bleeding and Denies easy bruising Aller/Immun Denies wheezing Physical exam (Primary Care) Vital Signs: Last Vital Signs Temp 97.3 F 01/14/25 10:03 Pulse 72 01/14/25 10:03 BP 122/70 01/14/25 10:03 Pulse Ox 99 01/14/25 10:03 Oxygen Delivery Method Room Air 01/14/25 10:03 BMI result Body Mass Index 29.5 Tobacco/Smoking Status: Tobacco use Status Tobacco use date assessed 01/14/25 01/14/25 10:08 Patient Tobacco Use Status Former Tobacco user 01/14/25 10:05 e-Cigarette/Vaping Use Never Used 01/14/25 10:05 PHQ-9: PHQ-9 Score PHQ-9: Total score 0 01/14/25 10:08 Depression Screening Interpretation: Negative Thrive Assessment: Date of Thrive Assessment Date Thrive assessed 01/14/25 01/14/25 10:05 Currently or been in a relationship where the following occur: No concerns reported Const General: healthy appearing, no acute distress, alert and awake Nutritional Appearance: well nourished Orientation/consciousness: oriented to person, oriented to place and oriented to time HENMT Ears: TM's normal bilaterally General nose exam: Normal nasal mucous membranes and turbinates present Eyes Conjunctivae: conjunctivae normal Sclerae: sclerae normal Pupils: Equal, round and reactive pupils present Neck Neck: Yes no lymphadenopathy and Yes no JVD Thyroid: Thyroid normal Carotids: no bruits Resp Effort & Inspection: normal respiratory effort and not tachypneic Auscultation: no crackles, no rales, no rhonchi and no wheezes Cardio Rate: regular rate Rhythm: regular rhythm Heart sounds: no murmurs and normal S1 and S2 GI Palpation (GI): Soft to palpation, nontender, no hepatomegaly and no splenomegaly Auscultation: normal bowel sounds Skin General skin exam: no rashes or lesions noted and dry skin Neuro General: oriented to person, oriented to place and oriented to time Cranial nerves: Yes Equal, round and reactive pupils present Speech: No Abnormal speech present Gait exam (Neuro): Normal gait present Motor exam (neuro): no tremor noted Extrem Right upper extremity: full ROM Left upper extremity: full ROM Right lower extremity: full ROM; no edema Left lower extremity: full ROM; no edema Psych Mental Status: mental status grossly normal Speech and movement: Normal speech and movement present Affect: normal affect Attitude: cooperative Thought process: Normal thought process present Coding Level of Care Code Est Pt Level 4 (62099) Diagnoses Primary hypertension I10 Hypertension type: primary hypertension Diverticulitis K57.92 Borderline high cholesterol E78.9 Additional Codes GINI-7 Assessment Billing - GINI-7 Assessment Tool: GINI-7 Assessment 66429 ([id number]) PHQ-9 - 90055 - PHQ-9 Billing: Yes ([id number]) Assessment & Plan Assessment & Plan (1) HTN (hypertension): Code(s): I10 - Essential (primary) hypertension Category: Medical Qualifiers: Hypertension type: primary hypertension Qualified Code(s): I10 - Essential (primary) hypertension Plan: Patient's blood pressure acceptable today in office. He continues now and just on lisinopril alone that has been controlling his blood pressure well. Advised to monitor blood pressures at home . Will work on lifestyle modifications to reduce his weight Goal blood pressures to be below 140/90 (2) Diverticulitis: Code(s): K57.92 - Diverticulitis of intestine, part unspecified, without perforation or abscess without bleeding Category: Medical Plan: As per HPI patient had an acute diverticulitis with some microperforations resulted in the need for bowel resection. Now has an ostomy bag and followed by [facility]. He has gone in for a colostomy reversal last month in his doing well. Reports he is defecating well in trying to stay on a high-fiber diet. (3) Borderline high cholesterol: Code(s): E78.9 - Disorder of lipoprotein metabolism, unspecified Category: Medical Plan: Patient's most recent lipid panel showing borderline high cholesterol. He be working on lifestyle and dietary modifications to reduce his cholesterol. Total cholesterol goal is to be below 200 Orders: Orders Complete Blood Count no Diff Today I10 - Essential (primary) hypertension Lipid Panel Today E78.9 - Disorder of lipoprotein metabolism, unspecified Comprehensive [place]. Panel Fast Today I10 - Essential (primary) hypertension Medications: Discontinued amlodipine Discontinued Reason: Doctor's Order 5 mg See Protocol PO DAILY 90 tabs 0RF oxycodone Partial Fill upon patient request. Discontinued Reason: Doctor's Order 5 mg PO Q4H PRN 26 tabs 0RF pain (scale score 7-10) Patient Instructions: Goal: Blood pressure to remain below 140/90, LDL to be below 130 Barriers: Adherence to physical activity and healthy eating habits
== END 2025-01-14 10:37 | disposition home or self-care (01) ==
LOC: HO.HMCH 08:23
PROVIDERS: PCP Physician Assistant; Visit Provider Physician Assistant
DX: I10 Essential (primary) hypertension (principal); K57.92 Diverticulitis of intestine, part unspecified, without perforation or abscess without bleeding; E78.9 Disorder of lipoprotein metabolism, unspecified

== ENCOUNTER → 2025-01-14 08:22 | Outpatient (BNVA) | payer OTHER, SELFPAY | PROVIDERS: PCP Physician Assistant; Visit Provider Physician Assistant | DX: I10 Essential (primary) hypertension (principal); K57.92 Diverticulitis of intestine, part unspecified, without perforation or abscess without bleeding; E78.9 Disorder of lipoprotein metabolism, unspecified | CPT/HCPCS: 96127; 99212 ==

== ENCOUNTER 2025-01-14 10:41 | Outpatient (REF) | payer OTHER, SELFPAY ==
[2025-01-14 11:50] LABS: Hematocrit 41.4 % (42.0-52.0); Hemoglobin 13.2 g/dl (14.0-18.0); Mean Corpuscular HGB Conc 31.9 g/dl (31.0-36.0); Mean Corpuscular Volume 81.7 fL (80.0-98.0); Mean Platelet Volume 9.3 fL (9.4-12.4); Platelet Count 418 X10*3/uL (160-400); Red Blood Count 5.07 X10*6/uL (4.60-5.80); Red Cell Distribution Width 13.8 % (11.0-16.0); White Blood Count 9.2 X10*3/uL (4.8-10.8)
[2025-01-14 12:04] LABS: Alanine Aminotransferase 19 U/L (0-40); Albumin Level 4.6 g/dL (3.5-5.0); Alkaline Phosphatase 75 U/L (39-117); Anion Gap 13 (12-20); Aspartate Amino Transferase 24 U/L (5-37); Bilirubin Total 0.6 mg/dL (0.0-1.0); Blood Urea Nitrogen 11 mg/dL (9-16); Calcium 9.9 mg/dL (8.4-10.2); Carbon Dioxide 28 mmol/L (22-29); Chloride 106 mmol/L (96-108); Cholesterol 169 mg/dL (<200); Estimated Glomerular Filt Rate > 60; Glucose Fasting 89 mg/dL (60-99); HDL Cholesterol 32 mg/dL (>40); LDL Cholesterol Calculated 112 mg/dL (<100); Potassium 3.7 mmol/L (3.3-5.1); Sodium 143 mmol/L (135-145); Triglycerides 125 mg/dL (<150)
== END 2025-01-14 10:42 | disposition home or self-care (01) ==
LOC: HO.10HDL 10:41
PROVIDERS: Visit Provider Physician Assistant
DX: E78.9 Disorder of lipoprotein metabolism, unspecified (principal); I10 Essential (primary) hypertension
CPT/HCPCS: 36415; 80053; 80061; 85027

== ENCOUNTER 2025-01-29 08:25 | Outpatient (AMB) | payer OTHER, SELFPAY ==
--- NOTE | 2025-01-29 08:47 | A.OFFVIS_ITS ---
Vital Signs 01/29/25 08:55 Height 5 ft 7.5 in Weight 194 lb 8 oz BMI 30.0 BP 153/65 H Blood Pressure Location Lt brachial Position Sitting Pulse 57 Intake Visit Reasons: 1 month follow up S/P reversal of colostomy Intake Note: Patient is seen in office for one month follow up visit, post colostomy reversal. Pt c/o: denies any cocerns at the time of visit, healing as expected Field Technical Support Consultant Required: No Accompanied by: Self / Same As Patient Allergies No Known Allergies [No Known Allergies*] Allergy (Verified 01/29/25 08:55) HPI HPI 1 month follow up S/P reversal of colostomy: Details: He continues to do well after reversal of his end colostomy. He has good oral intake. He has good bowel movements. Denies any significant pain. [facility] Medical History Morbid obesity Elevated cholesterol HTN (hypertension) Diverticulitis Colostomy in place Fatty liver disease, nonalcoholic Surgical History History of colostomy reversal (12/24/24) History of colonoscopy (~10/25/24) Hx of surgical procedure (~06/26/24) Family History Father Diabetes Mother No problems noted. Social History Household Members: Family Household Members Other:: mom Housing: Apartment Housing Other:: living with parents Are you a primary nonfarm animal caretaker to a significant other at home: No Do you presently have visiting nurse or other home services: No Alcohol intake: former Patient Tobacco Use Status: Former Tobacco user e-Cigarette/Vaping Use: Never Used Second Hand Smoke Exposure: Yes service: No Current occupational status: disabled Cognitive needs: No Hearing needs: No Vision needs: Yes (Glasses) Review of Systems Const Denies chills and Denies fever(s) Card Denies chest pain, Denies dyspnea and Denies dyspnea on exertion Resp Denies cough, Denies dyspnea and Denies dyspnea on exertion GI Denies hematochezia and Denies change in bowel habits Denies hematuria and Denies difficulty urinating Musc Denies back pain and Denies limited range of motion Neuro Denies focal weakness and Denies convulsions Psych Denies depression and Denies mood swings Physical Exam Vital Signs: Last Vital Signs Pulse 57 01/29/25 08:55 BP 153/65 H 01/29/25 08:55 BMI result Body Mass Index 30.0 Const General: comfortable and no acute distress Resp Effort & Inspection: normal respiratory effort GI Other: Incisions well healed, no hernias Palpation (GI): Soft to palpation, not firm and nontender Assessment & Plan Assessment & Plan (1) History of colostomy reversal: Code(s): Z98.890 - Other specified postprocedural states Category: Surgical Plan: He continues to do well after reversal of his colostomy. His incisions are well healed. He is cleared to return to normal level of activities. He can follow up on a p.r.n. basis Coding Level of Care Code Global (36986) Diagnoses History of colostomy reversal Z98.890
[2025-01-29 08:55] VITALS: BP 153/65; PULSE 57
== END 2025-01-29 08:59 | disposition home or self-care (01) ==
PROVIDERS: PCP Physician Assistant; Visit Provider Surgery
DX: Z98.890 Other specified postprocedural states (principal)
CPT/HCPCS: 99024

== ENCOUNTER → 2025-01-29 08:25 | Outpatient (BNVA) | payer OTHER, SELFPAY | PROVIDERS: PCP Physician Assistant; Visit Provider Surgery | DX: Z09 Encounter for follow-up examination after completed treatment for conditions other than malignant neoplasm (principal); Z98.890 Other specified postprocedural states | CPT/HCPCS: 99212 ==

== ENCOUNTER 2025-09-03 09:08 | Outpatient (AMB) | payer OTHER, SELFPAY ==
--- NOTE | 2025-09-03 09:25 | MHC.PC.OV ---
Vital Signs 09/03/25 09:27 09/03/25 09:41 Height 5 ft 7.5 in Weight 207 lb BMI 31.9 BP 132/90 H 130/80 Blood Pressure Location Lt brachial Position Sitting Pulse 79 Pulse Source Pulse Oximeter Temp 97.0 F Temp Source Temporal Artery Scan Pulse Oximetry (%) 98 Oxygen Delivery Method Room Air Intake Visit Reasons: follow up Intake Note: Patient is here to follow up on HTN. Rim Roller Operator Required: No Correction Lieutenant: Not Required per policy Accompanied by: Self / Same As Patient Allergies No Known Allergies (No Known Allergies*) Allergy (Verified 09/03/25 09:37) Medication List - Last Reconciled 09/03/25 by Willard Lester PA-C acetaminophen (Tylenol) 650 mg PO Q6H PRN blood pressure test kit-large To take blood pressure once a day docusate sodium (Colace) 100 mg PO DAILY lisinopril 10 mg PO DAILY Tobacco use date assessed: 09/03/25 Dental Screening Dental Screen Date: 09/03/25 Did you have a dental visit in the last 12 months?: No Did you have a dental problem in the last 6 months where you did not have access to dental care?: No Was dental information given to patient?: No HPI follow up HPI Details Patient is a 34 year male here today for follow-up visit ? Patient has past medical history significant obesity, elevated blood pressure readings, nonalcoholic fatty liver disease, history of diverticulitis with abscess formation. HTN: ? He reports being consistent with the use of his lisinopril. He is off of amlodipine at this point. Blood pressure today in office acceptable. He has not been monitoring his blood pressure at home.? He otherwise denies any chest discomfort, headaches, vision issues or palpitations. .. Class 1 obesity: Patient has gained his weight back since his acute illness with diverticulitis. Reports he has been trying to stay away from greasy foods .. Borderline high cholesterol: Most recent labs showing borderline high total cholesterol. He has been working on lifestyle modifications on reducing high cholesterol foods in his diet. [facility] Medical History (Updated 09/03/25 @ 09:46 by Willard Lester PA-C) Elevated cholesterol HTN (hypertension) Diverticulitis Colostomy in place Fatty liver disease, nonalcoholic Surgical History (Updated 09/03/25 @ 09:46 by Willard Lester PA-C) History of colostomy reversal History of colostomy reversal (12/24/24) History of colonoscopy (~10/25/24) Hx of surgical procedure (~06/26/24) Family History Father Diabetes Mother No problems noted. Social History Household Members: Family Household Members Other:: mom Housing: Apartment Housing Other:: living with parents Are you a primary healthcare specialist to a significant other at home: No Do you presently have visiting nurse or other home services: No Alcohol intake: former Patient Tobacco Use Status: Former Tobacco user e-Cigarette/Vaping Use: Never Used Second Hand Smoke Exposure: Yes service: No Current occupational status: disabled Cognitive needs: No Hearing needs: No Vision needs: Yes (Glasses) Questionnaire PHQ-9 Over the last 2 weeks, how often have you been bothered by any of the following problems? 1. Little interest or pleasure in doing things: not at all 2. Feeling down, depressed, or hopeless: not at all 3. Trouble falling or staying asleep, or sleeping too much: not at all 4. Feeling tired or having little energy: not at all 5. Poor appetite or overeating: not at all 6. Feeling bad about yourself - or that you are a failure or have let yourself or your family down: not at all 7. Trouble concentrating on things, such as reading the newspaper or watching television: not at all 8. Moving or speaking so slowly that other people could have noticed. Or the opposite - being so fidgety or restless that you have been moving around a lot more than usual: not at all 9. Thoughts that you would be better off or of hurting yourself in some way: not at all Total score: 0 Depression Screening Interpretation: Negative Depression Screening Done: Yes [id number] - PHQ-9 Billing: Patient declined-do not bill Source: Developed by Drs. Remy Headley, Livier Medina, Vance Garcia and colleagues, with an educational pedro pablo from [employer]. Thrive Questionnaire Date Thrive assessed: 04/01/25 I am a: Patient What is your living situation today?: I have a steady place to live Within the past 12 months, did the food you bought not last and you didn't have the money to get more?: Never true Within the past 12 months, did you worry whether your food would run out before you got money to buy more?: Never true Do you have trouble paying for medicines?: No Do you have trouble getting transportation to medical appointments?: No Do you have trouble paying your heating and electricity bill?: No Do you have trouble taking care of your child, family member or friend?: No Do you have trouble with day-to-day activities such as bathing, preparing meals, shopping, managing finances, etc.?: No Are you currently unemployed and looking for a job?: Yes Are you interested in more education?: No Please select the resources that you would like help with: None Currently or been in a relationship where the following occur: No concerns reported THRIVE Score: 0 AUDIT C Alcohol Use Questionnaire (AUDIT-C) 1. How often do you have a drink containing alcohol?: Never 3. How often do you have six or more drinks on one occasion?: Never Total Score: 0 GINI-7 AMB Questionnaire GINI-7 Date GINI - 7 assessed: 01/14/25 Feeling nervous, anxious, or on edge: 0 = Not at all Not being able to stop or control worryin = Not at all Worrying too much about different things: 0 = Not at all Trouble relaxin = Not at all Being so restless that it is hard to sit still: 0 = Not at all Becoming easily annoyed or irritable: 0 = Not at all Feeling afraid as if something awful might happen: 0 = Not at all Total GINI-7 score (0-4 normal; 5-9 mild; 10-14 moderate; 15-21 severe): 0 Source: Developed by Drs. Remy Headley, Livier Medina, Vance Garcia and colleagues, with an educational pedro pablo from [employer]. GINI-7 Assessment Billing GINI-7 Assessment Tool: GINI-7 Assessment 45066 Review of Systems Const Denies headache(s) Eyes Denies loss of vision ENT Denies vertigo, Denies dizziness, Denies headache(s) and Denies sore throat Card Denies chest pain, Denies leg edema and Denies lightheadedness Resp Denies cough, Denies hemoptysis and Denies wheezing GI Denies abdominal pain, Denies melena, Denies constipation, Denies diarrhea and Denies vomiting Denies dysuria, Denies urinary frequency and Denies urinary urgency Musc Denies arthralgias, Denies joint swelling, Denies numbness and Denies tingling Neuro Denies Abnormal speech present, Denies behavioral changes, Denies vertigo, Denies dizziness, Denies headache(s), Denies loss of vision, Denies memory loss, Denies numbness and Denies tingling Psych Denies anxiety, Denies behavioral changes, Denies depression, Denies memory loss and Denies panic attacks Glen/Lymph Denies easy bleeding and Denies easy bruising Aller/Immun Denies wheezing Physical exam (Primary Care) Vital Signs: Last Vital Signs Temp 97.0 F 09/03/25 09:27 Pulse 79 09/03/25 09:27 BP 130/80 09/03/25 09:41 Pulse Ox 98 09/03/25 09:27 Oxygen Delivery Method Room Air 09/03/25 09:27 BMI result Body Mass Index 31.9 BMI Assessment/Plan discussion: High BMI High, discussed plan: lifestyle, weight reduction, dietary and physical activity Tobacco/Smoking Status: Tobacco use Status Tobacco use date assessed 09/03/25 09/03/25 09:27 Patient Tobacco Use Status Former Tobacco user 09/03/25 09:27 e-Cigarette/Vaping Use Never Used 09/03/25 09:27 PHQ-9: PHQ-9 Score PHQ-9: Total score 0 09/03/25 09:39 Depression Screening Interpretation: Negative Thrive Assessment: Date of Thrive Assessment Date Thrive assessed 01/14/25 09/03/25 09:27 Currently or been in a relationship where the following occur: No concerns reported Const General: healthy appearing, no acute distress, alert and awake Nutritional Appearance: well nourished Orientation/consciousness: oriented to person, oriented to place and oriented to time HENMT Ears: TM's normal bilaterally General nose exam: Normal nasal mucous membranes and turbinates present Eyes Conjunctivae: conjunctivae normal Sclerae: sclerae normal Pupils: Equal, round and reactive pupils present Neck Neck: Yes no lymphadenopathy and Yes no JVD Thyroid: Thyroid normal Carotids: no bruits Resp Effort & Inspection: normal respiratory effort and not tachypneic Auscultation: no crackles, no rales, no rhonchi and no wheezes Cardio Rate: regular rate Rhythm: regular rhythm Heart sounds: no murmurs and normal S1 and S2 GI Palpation (GI): Soft to palpation, nontender, no hepatomegaly and no splenomegaly Auscultation: normal bowel sounds Skin General skin exam: no rashes or lesions noted and dry skin Neuro General: oriented to person, oriented to place and oriented to time Cranial nerves: Yes Equal, round and reactive pupils present Speech: No Abnormal speech present Gait exam (Neuro): Normal gait present Motor exam (neuro): no tremor noted Extrem Right upper extremity: full ROM Left upper extremity: full ROM Right lower extremity: full ROM; no edema Left lower extremity: full ROM; no edema Psych Mental Status: mental status grossly normal Speech and movement: Normal speech and movement present Affect: normal affect Attitude: cooperative Thought process: Normal thought process present Coding Level of Care Code Est Pt Level 4 (28690) Diagnoses Primary hypertension I10 Hypertension type: primary hypertension Borderline high cholesterol E78.9 Class 1 obesity E66.811 Additional Codes GINI-7 Assessment Billing - GINI-7 Assessment Tool: GINI-7 Assessment [id number] ([id number]) Assessment & Plan Assessment & Plan (1) HTN (hypertension): Code(s): I10 - Essential (primary) hypertension Category: Medical Qualifiers: Hypertension type: primary hypertension Qualified Code(s): I10 - Essential (primary) hypertension Plan: Patient's blood pressure acceptable today in office. He continues now and just on lisinopril alone that has been controlling his blood pressure well. Advised to monitor blood pressures at home . Will work on lifestyle modifications to reduce his weight Goal blood pressures to be below 140/90 (2) Borderline high cholesterol: Code(s): E78.9 - Disorder of lipoprotein metabolism, unspecified Category: Medical Plan: Patient's most recent lipid panel showing borderline high cholesterol. He be working on lifestyle and dietary modifications to reduce his cholesterol. Total cholesterol goal is to be below 200 (3) Class 1 obesity: Code(s): E66.811 - Obesity, class 1 Category: Medical Plan: Patient does understand his BMI is over 30 will continue working on being more physically active and adapting to better eating habits to reduce his weight. Orders: Orders Lipid Panel Today E78.9 - Disorder of lipoprotein metabolism, unspecified Comprehensive [place]. Panel Fast Today I10 - Essential (primary) hypertension Influenza [id number] Immunization Today Z23 - Encounter for immunization Microalbumin, Random (w Creat) Today I10 - Essential (primary) hypertension Complete Blood Count no Diff Today I10 - Essential (primary) hypertension Medications: New Fluarix [id number] (PF) (flu vac ts (6mos up)-PF) 0.5 mL IM ONCE 0.5 mL 0RF NS Z23 - Encounter for immunization Patient Instructions: Goal: Blood pressure to remain below 140/90 ::Barriers:: Adherence to physical activity and healthy eating habits
[2025-09-03 09:27] VITALS: BP 132/90; PULSE 79; TEMP 36.1; O2SAT 98; BMI 31.9
[2025-09-03 09:41] VITALS: BP 130/80
== END 2025-09-03 10:12 | disposition home or self-care (01) ==
LOC: HO.HMCH 09:09
PROVIDERS: PCP Physician Assistant; Visit Provider Physician Assistant
DX: I10 Essential (primary) hypertension (principal); E78.9 Disorder of lipoprotein metabolism, unspecified; E66.811 Obesity, class 1; Z23 Encounter for immunization; Z68.31 Body mass index [BMI] 31.0-31.9, adult

== ENCOUNTER 2025-09-03 10:08 | Outpatient (REF) | payer OTHER, SELFPAY ==
[2025-09-03 10:48] LABS: Hematocrit 45.5 % (42.0-52.0); Hemoglobin 15.0 g/dl (14.0-18.0); Mean Corpuscular HGB Conc 33.0 g/dl (31.0-36.0); Mean Corpuscular Hemoglobin 26.9 pg (27.0-33.0); Mean Corpuscular Volume 81.5 fL (80.0-98.0); NRBC Abs Auto 0.000 X10*3/uL (0.0-0.012); NRBC Pct Auto 0.0 /100WBC (0.0-0.2); Platelet Count 256 X10*3/uL (160-400); Red Blood Count 5.58 X10*6/uL (4.60-5.80); White Blood Count 7.3 X10*3/uL (4.8-10.8)
[2025-09-03 11:33] LABS: Albumin Level 5.1 g/dL (3.5-5.0); Alkaline Phosphatase 69 U/L (39-117); Anion Gap 11 (12-20); Aspartate Amino Transferase 37 U/L (5-37); Blood Urea Nitrogen 13 mg/dL (9-16); Calcium 9.7 mg/dL (8.4-10.2); Carbon Dioxide 25 mmol/L (22-29); Chloride 108 mmol/L (96-108); Cholesterol 227 mg/dL (<200); Estimated Glomerular Filt Rate > 60; HDL Cholesterol 45 mg/dL (>40); Potassium 3.5 mmol/L (3.3-5.1); Sodium 140 mmol/L (135-145); Total Protein 7.6 g/dL (6.5-8.0); Triglycerides 187 mg/dL (<150)
[2025-09-03 11:47] LABS: Alanine Aminotransferase 36 U/L (0-40)
== END 2025-09-03 10:09 | disposition home or self-care (01) ==
LOC: HO.10HDL 10:08
PROVIDERS: Visit Provider Physician Assistant
DX: Z23 Encounter for immunization (principal); E78.9 Disorder of lipoprotein metabolism, unspecified; I10 Essential (primary) hypertension; E66.811 Obesity, class 1; Z79.899 Other long term (current) drug therapy; Z68.31 Body mass index [BMI] 31.0-31.9, adult
CPT/HCPCS: 36415; 80053; 80061; 85027; 90471; 90656; 96127; 99212